=== PATIENT | female | born 1955 | race Caucasian/White ===

== ENCOUNTER 2019-11-26 21:26 | Emergency (ER) | payer MEDICARE, SELFPAY ==
[2019-11-26 21:32] VITALS: BP 143/68; PULSE 86; RESP 18; TEMP 37; O2SAT 100; BMI 32.4
--- NOTE | 2019-11-26 21:33 | CTR_ITS ---
PROCEDURE INFORMATION: Exam: CT Head Without Contrast Exam date and time: 11/26/2019 9:55 PM Age: 64 years old Clinical indication: Injury or trauma; Fall; Initial encounter; Blunt trauma (contusions or hematomas); Consciousness not specified; Patient HX: Lac above RT eye; Additional info: Head injury TECHNIQUE: Imaging protocol: Computed tomography of the head without contrast. Radiation optimization: All CT scans at this facility use at least one of these dose optimization techniques: automated exposure control; mA and/or kV adjustment per patient size (includes targeted exams where dose is matched to clinical indication); or iterative reconstruction. COMPARISON: No relevant prior studies available. RADIATION DOSE METRICS: Total DLP: 805.05 mGy-cm FINDINGS: Brain: No acute intracranial hemorrhage or mass effect. There is decreased attenuation in the periventricular white matter, likely from microvascular disease. Old infarcts in the left frontal and parietal regions. No definite acute infarct by CT. Ventricles: Ex-vacuo enlargement of the left lateral ventricle. Ventricle size is otherwise unremarkable for age. Bones/joints: No definite acute skull fracture. Sinuses: Mild mucosal thickening/fluid in the sphenoid sinus. Mastoid air cells: No significant acute finding. Soft tissues: Evidence for soft tissue injury/scalp hematoma in the right supraorbital region. CT/CT head wo con* [id number] IMPRESSION: 1. No acute intracranial hemorrhage or mass effect. 2. Other findings discussed above. Radiation Dose CTDIVOL = (mGy): DLP = 805.05 (mGy-cm)
--- NOTE | 2019-11-26 22:07 | W.ED.WOUNDLC ---
HPI - Wound/Laceration General: Chief Complaint: Wound/Laceration Stated Complaint: HEAD LAC POST FALL Time Seen by Provider: 11/26/19 21:31 History of Present Illness: HPI narrative: Patient tripped in bathroom at home and hit the counter with her right eyebrow she come in by ambulance no loss of consciousness no nausea and vomiting history of stroke nonverbal Onset (ago): hour(s) Location: face Place: home Patient tetanus UTD: No Context: accidental Associated symptoms: Reports no associated symptoms; Denies chills, fever(s), nausea or vomiting Review of Systems Const: Denies: fever(s), chills or body aches Eyes: Denies: change in vision or blurry vision ENMT: Denies: throat pain or nasal congestion Card: Denies: chest pain or dyspnea on exertion Resp: Denies: dyspnea, productive cough or non-productive cough GI: Denies: abdominal pain, nausea or vomiting Musc: Denies: extremity pain Skin/Breast: Denies: rash Neuro: Reports: other (History of stroke right side affected); Denies: headache(s) Psych: Denies: anxiety or depression Owen/Lymph: Denies: easy bruising PFSH ED PFSH: Social History Smoking and tobacco status: former smoker Physical Exam Const: COMMON NORMALS: no acute distress, average body habitus and patient oriented x3 (Patient does report respond well to stimuli and questions asked and appears to be appropriate) HENMT: COMMON NORMALS: normocephalic HEAD & SCALP: normal to inspection and normocephalic FACE & SINUS: normal facial exam Eye: COMMON NORMALS: conjunctivae normal GENERAL EYE: appearance normal, both eyes and all related structures CONJUNCTIVA: Yes conjunctivae normal Neck/C-Spine: COMMON NORMALS: no JVD Chest: COMMONS NORMALS: normal inspection of the chest Resp: COMMON NORMALS: normal respiratory effort and clear to auscultation bilaterally AUSCULTATION: clear to auscultation bilaterally Cardio: COMMON NORMALS: no JVD, regular rate and regular rhythm RATE: regular rate RHYTHM: regular rhythm GI: COMMON NORMALS: Normal to inspection, nondistended, normoactive bowel sounds present Extremity: COMMON NORMALS: normal to inspection and full ROM Neuro: COMMON NORMALS: patient oriented x3 (Patient does report respond well to stimuli and questions asked and appears to be appropriate) Skin: OTHER: Large laceration right eyebrow oozing blood Procedures Laceration Laceration 1: Site: face Side (If applicable): right Size (cm): 3 Description: linear Depth: simple, single layer Local Anesthetic: lidocaine 1% Amount of anesthesia used (mL): 2 Pre-repair: wound explored, irrigated extensively and deep structures intact Skin layer closed with: nylon Size (cm): 4-0 Number of sutures: 9 Technique: simple, interrupted Course Vital Signs: Vital signs: Vital Signs Temperature 98.6 F 11/26/19 21:32 Pulse Rate 86 11/26/19 21:32 Respiratory Rate 18 11/26/19 21:32 Blood Pressure 143/68 11/26/19 21:32 Pulse Oximetry 100 11/26/19 21:32 Coding Level of Care Code 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
[2019-11-26 23:00] VITALS: BP 157/71; PULSE 79; RESP 18; O2SAT 97
== END 2019-11-26 23:00 | disposition home or self-care (01) ==
PROVIDERS: Emergency Provider Nurse Practitioner Family
DX: S01.111A Laceration without foreign body of right eyelid and periocular area, initial encounter (principal); W01.198A Fall on same level from slipping, tripping and stumbling with subsequent striking against other object, initial encounter; Z87.891 Personal history of nicotine dependence
CPT/HCPCS: 12013; 12345; 70450; 99281; 99283

== ENCOUNTER 2019-12-02 13:23 | Outpatient (CLI) | payer MEDICARE, SELFPAY ==
--- NOTE | 2019-12-02 13:31 | XR_ITS ---
WS: [id number] RIGHT HAND: 3 VIEW(S) TECHNIQUE: PA, oblique and lateral. HISTORY: FALL, FINGER PAIN COMPARISON: None available. Diffuse osteopenia. Seen only on one view is a lucent line through the proximal phalanx of the fourth finger. Seen on the lateral projection is an interruption of cortex involving the proximal phalanx o f the fifth finger. Mild narrowing of the interphalangeal joints. Radiocarpal joint space narrowing. XR/XR hand RT min 3V* [id number] IMPRESSION: 1. Diffuse osteopenia. 2. Suspicious for nondisplaced fractures involving the proximal phalanges of t he fourth and fifth fingers. Recommend follow-up radiograph in 7 days.
== END 2019-12-02 13:24 | disposition home or self-care (01) ==
LOC: RADWPI 13:28
PROVIDERS: PCP Family Medicine; Visit Provider Family Medicine
DX: M79.644 Pain in right finger(s) (principal); W19.XXXA Unspecified fall, initial encounter; M85.841 Other specified disorders of bone density and structure, right hand
CPT/HCPCS: 73130

== ENCOUNTER 2019-12-11 15:25 | Outpatient (CLI) | payer MEDICARE, SELFPAY ==
--- NOTE | 2019-12-11 15:37 | XR_ITS ---
WS: [id number] HAND RIGHT TECHNIQUE: 3 views of the right hand CLINICAL INFORMATION: FRACTURE OF UNSPECIFIED FINGER COMPARISON: December 02, 2019 FINDINGS: Osteopenia. Previously described lucency involving the fourth and fifth proximal phalanges more promi nent in the fifth unchanged. No evidence of interval healing. XR/XR hand RT min 3V* [id number] IMPRESSION: Suspected nondisplaced fracture fifth proximal phalanx is more convincing today . Unchanged lucency in the fourth proximal phalanx.
== END 2019-12-11 15:26 | disposition home or self-care (01) ==
PROVIDERS: PCP Family Medicine; Visit Provider Family Medicine
DX: S62.646A Nondisplaced fracture of proximal phalanx of right little finger, initial encounter for closed fracture (principal); S62.614A Displaced fracture of proximal phalanx of right ring finger, initial encounter for closed fracture; X58.XXXA Exposure to other specified factors, initial encounter
CPT/HCPCS: 73130

== ENCOUNTER 2020-02-13 10:46 | Outpatient (CLI) | payer MEDICARE, SELFPAY ==
--- NOTE | 2020-02-13 10:52 | MM_ITS ---
WS: [id number] BILATERAL DIGITAL SCREENING MAMMOGRAPHY WITH CAD CLINICAL INFORMATION: SCREENING HISTORY: Screening mammogram. No current complaints. COMPARISON: TECHNIQUE: Bilateral CC and MLO views. FINDINGS: Scattered fibroglandular densities bilaterally. No suspicious focal mass, asymmetry, calcifications, or architectural distortion. No evidence of malignancy. Lucent centered left breast calcifications. D ystrophic calcifications. Vascular calcification. MM/[place] [id number] IMPRESSION: BI-RADS: 2-Benign FOLLOW UP: 1 Year Follow-up Recommend return to annual screening mammography.
== END 2020-02-13 10:47 | disposition home or self-care (01) ==
LOC: RADSHAW 10:50
PROVIDERS: PCP Family Medicine; Visit Provider Family Medicine
DX: Z12.31 Encounter for screening mammogram for malignant neoplasm of breast (principal)
CPT/HCPCS: 77067

== ENCOUNTER 2021-03-22 13:33 | Outpatient (CLI) | payer MEDICARE, SELFPAY ==
--- NOTE | 2021-03-22 13:43 | MM_ITS ---
WS: [id number] BILATERAL DIGITAL SCREENING MAMMOGRAPHY WITH CAD CLINICAL INFORMATION: SCREENING HISTORY: Screening mammogram. No current complaints. COMPARISON: February 13, 2020 TECHNIQUE: Bilateral CC and MLO views. FINDINGS: Scattered fibroglandular densities bilaterally. No suspicious focal mass, asymmetry, calcifications, or architectural distortion. No evidence of malignancy. Punctate calcifications. Dystrophic calcifica tions left breast. Vascular calcification. MM/[place] [id number] IMPRESSION: BI-RADS: 2-Benign FOLLOW UP: 1 Year Follow-up Recommend return to annual screening mammography.
== END 2021-03-22 13:34 | disposition home or self-care (01) ==
LOC: RADSHAW 13:37
PROVIDERS: PCP Family Medicine; Visit Provider Family Medicine
DX: Z12.31 Encounter for screening mammogram for malignant neoplasm of breast (principal)
CPT/HCPCS: 77067

== ENCOUNTER 2021-05-11 14:09 | Outpatient (CLI) | payer MEDICARE, SELFPAY ==
--- NOTE | 2021-05-11 14:15 | XR_ITS ---
WS: [id number] Chest 2 views, 05/11/2021 Clinical Data: R SIDED BASILAR CRACKLES/ABNORMAL LUNG SOUNDS Comparison: PA and lateral chest, 03/06/2012. Findings: No nodules or masses are seen. The heart is normal. The pulmonary vascularity is not increa sed. No pneumothorax is seen. There is a right pleural effusion with a patchy opacity in the posterio r aspect of the right lower lobe which could represent pneumonia and/or atelectasis. The aortic arch and descending aorta are tortuous. XR/XR chest 2V* [id number] Impression: 1. Right pleural effusion with possible right lower lobe pneumonia and/or atele ctasis. 2. Atherosclerosis.
== END 2021-05-11 14:10 | disposition home or self-care (01) ==
PROVIDERS: PCP Family Medicine; Visit Provider Family Medicine
DX: R09.89 Other specified symptoms and signs involving the circulatory and respiratory systems (principal)
CPT/HCPCS: 71046

== ENCOUNTER 2021-06-03 09:42 | Outpatient (CLI) | payer MEDICARE, SELFPAY ==
--- NOTE | 2021-06-03 09:46 | CT_ITS ---
WS: [id number] CT CHEST WITH INTRAVENOUS CONTRAST HISTORY: PLEURAL EFFUSION NOT ELSEWHERE CLASSIFIED TECHNIQUE: Contiguous 5 mm axial imaging performed on the thorax. Coronal and sagittal reformats are submitted. All CT scans at [facility] use at least one of these dose optimization techniques: automated exposure control; mA and/or kV adjustment per patient size (includes targeted exams where dose is matched to clinical indication); or iterative reconstruction. CONTRAST: Omnipaque 300; 95 mL IV. DLP: 996.13 mGycm COMPARISON: Chest radiograph 05/11/2021 Quality of this examination is limited by breathing motion artifact. Lungs and central airway: Volume loss in the RIGHT thorax. There is a rounded area of enhancement in the RIGHT lower lobe measuring 4.1 x 3.6 cm. Most consistent with rounded atelectasis. There is an ad jacent small effusion. No additional areas of increased density or opacification. Pleura: Small layering RIGHT pleural effusion Heart and pericardium: Normal size heart with no pericardial effusion. Mediastinum and myrtle: No mediastinum or hilar adenopathy. Vessels: Very mild atherosclerosis aorta. Normal size pulmonary artery. Chest wall and lower neck: No soft tissue masses. Upper abdomen: Prior cholecystectomy. Adrenal glands are normal. Osseous structures: No destructive process. CT/CT chest w con* [id number] IMPRESSION: 1. Mild volume loss in the RIGHT thorax with an area of rounded atelectasis in the RIGHT lower lobe. This area of rounded atelectasis is mass like in appeara nce but I do believe this is atelectasis. To confirm this is atelectasis and no t an underlying mass consider follow-up chest CT in 3 months. 2. Small RIGHT pleural effusion.
[2021-06-03 10:39] LABS: Blood Urea Nitrogen 17 mg/dL (8-23)
[2021-06-03] MEDS: iodixanol 320 mg/mL 100mL Btl IV (12:10)
== END 2021-06-03 09:43 | disposition home or self-care (01) ==
PROVIDERS: PCP Family Medicine; Visit Provider Family Medicine
DX: J90 Pleural effusion, not elsewhere classified (principal); J98.11 Atelectasis
CPT/HCPCS: 71260; 82565; 84520; Q9967

== ENCOUNTER 2021-10-14 11:52 | Outpatient (CLI) | payer MEDICARE, SELFPAY ==
--- NOTE | 2021-10-14 12:03 | CT_ITS ---
WS: [id number] CT CHEST TECHNIQUE: Noncontrast CT of the chest with coronal and sagittal reformatted images. CLINICAL INFORMATION: ABNORMAL CT CHEST SCAN COMPARISON: CT June 03, 2021 DLP: 621.[address] scans at [facility] use at least one of these dose optimization techniques: automated e xposure control; mA and/or kV adjustment per patient size (includes targeted exams where dose is matc hed to clinical indication); or iterative reconstruction. FINDINGS: Normal caliber thoracic aorta. Aortic calcification. Coronary calcification. No axillary lymphadenopa thy. No mediastinal or hilar lymphadenopathy. RIGHT lower lobe opacity suspicious for round atelectasis is decreased in size slightly compared to p revious. This measures approximately 3.4 x 2.9 CM. Small RIGHT pleural effusion. Moderate chronic emp hysematous changes. LEFT lung is well aerated. Mild thoracic kyphosis with hypertrophic changes thora cic spine. CT/CT chest wo con [id number] IMPRESSION: 1. Volume loss RIGHT lower lobe. Small RIGHT pleural effusion. 2. Opacity RIGHT lower lobe is decreased in size slightly today measuring 3.4 x 2.9 cm compared to 3.5 x 4.1 cm previous. This most likely represents round a telectasis. Recommend [address] follow-up. 3. Prior cholecystectomy. 4. No mediastinal or hilar lymphadenopathy. 5. Aortic calcification. Coronary calcification.
== END 2021-10-14 11:53 | disposition home or self-care (01) ==
LOC: RAD 11:56
PROVIDERS: PCP Family Medicine; Visit Provider Family Medicine
DX: R93.89 Abnormal findings on diagnostic imaging of other specified body structures (principal); J90 Pleural effusion, not elsewhere classified; Z90.49 Acquired absence of other specified parts of digestive tract; I70.0 Atherosclerosis of aorta; I25.10 Atherosclerotic heart disease of native coronary artery without angina pectoris
CPT/HCPCS: 71250

== ENCOUNTER 2022-03-25 14:16 | Outpatient (CLI) | payer MEDICARE, SELFPAY ==
--- NOTE | 2022-03-25 14:25 | MM_ITS ---
WS: [id number] BILATERAL 2D CAD DIGITAL SCREENING MAMMOGRAPHY WITH CAD CLINICAL INFORMATION: SCREENING HISTORY: Screening mammogram. No current complaints. COMPARISON: March 22, 2021 TECHNIQUE: Bilateral CC and MLO views. FINDINGS: Scattered fibroglandular densities bilaterally. No suspicious focal mass, asymmetry, calcifications, or architectural distortion. No evidence of malignancy. Punctate and lucent centered calcifications. Dystrophic calcifications. Vascular calcifications. MM/[place] [id number] IMPRESSION: BI-RADS: 2-Benign FOLLOW UP: 1 Year Follow-up Recommend return to annual screening mammography.
== END 2022-03-25 14:17 | disposition home or self-care (01) ==
LOC: RAD 14:18
PROVIDERS: PCP Family Medicine; Visit Provider Family Medicine
DX: Z12.31 Encounter for screening mammogram for malignant neoplasm of breast (principal)
CPT/HCPCS: 77067

== ENCOUNTER 2022-05-24 07:14 | Outpatient (CLI) | payer MEDICARE, SELFPAY ==
--- NOTE | 2022-05-24 07:28 | CT_ITS ---
WS: [id number] CT CHEST WITHOUT INTRAVENOUS CONTRAST HISTORY: Follow-up chest CT RIGHT lower lobe mass. TECHNIQUE: Contiguous 5 mm axial imaging performed on the thorax. Coronal and sagittal reformats are submitted. All CT scans at [facility] use at least one of these dose optimization techniques: automated exposure control; mA and/or kV adjustment per patient size (includes targeted exams where dose is matched to clinical indication); or iterative reconstruction. CONTRAST: None DLP: 674.04 mGy.cm COMPARISON: 06/03/2021, 10/14/2021 Lungs and central airway: Quality is limited by breathing motion artifact. There is volume loss in th e RIGHT thorax. Pleural-based mass in the posterior medial RIGHT lower lobe is reidentified. Mass abu ts the pleura and this is thought related to rounded atelectasis. Mass has not increased in size sinc e 06/03/2021 and actually has decreased. On 06/03/2021 mass measured 3.2 x 3.8 cm. On 10/14/2021 mass me asured 3.0 x 3.1 cm. Today this solid mass measures 2.5 x 2.9 cm. There is adjacent pleural thickenin g but the previously described effusion has resolved. No edema additional masses or pneumonia. Pleura: No pleural effusion. Heart and pericardium: Heart is very slightly enlarged. No pericardial effusion. Mediastinum and myrtle: No mediastinum or hilar adenopathy. Vessels: Mild atherosclerosis aorta. Normal size pulmonary artery. Chest wall and lower neck: No soft tissue masses. Upper abdomen: Prior cholecystectomy. No abnormality identified. Osseous structures: Very mild increase in thoracic kyphosis. No osteoblastic or osteolytic bone disea se. CT/CT chest wo con [id number] IMPRESSION: 1. Persistent posterior medial RIGHT lower lobe pleural-based solid mass now m easures 2.5 x 2.9 cm. This mass continues to very slightly decrease in size sin ce 06/03/2021. Favor this is probably rounded atelectasis. For long-term stabili ty recommend serial 6 month follow-up CT evaluations for a total of 2 years. 2 additional 6 month follow-ups would fill that criteria. 2. Resolved RIGHT pleural effusion that was described on 06/03/2021. 3. Mild cardiomegaly. 4. Mild atherosclerosis aorta. 5. Mild volume loss RIGHT thorax.
== END 2022-05-24 07:15 | disposition home or self-care (01) ==
LOC: RAD 07:18
PROVIDERS: PCP Family Medicine; Visit Provider Family Medicine
DX: R93.89 Abnormal findings on diagnostic imaging of other specified body structures (principal); I70.0 Atherosclerosis of aorta; I51.7 Cardiomegaly
CPT/HCPCS: 71250

== ENCOUNTER 2022-07-17 17:03 | Emergency (ER) | payer MEDICARE, SELFPAY ==
[2022-07-17 17:17] VITALS: BP 124/79; PULSE 113; RESP 20; TEMP 36.8; O2SAT 97
--- NOTE | 2022-07-17 18:03 | ED_ITS ---
HPI - Fall General: Chief Complaint: Fall Stated Complaint: Right leg injury, No strength in right side Time Seen by Provider: 07/17/22 18:03 History of Present Illness: 66-year-old female comes in today for complaints of injury to the right foot and ankle. Patient 3 days prior to coming to the ER had took a ground-level fall when she was transferring. Patient has reduced mobility in her right side due to a prior stroke event. Family monitor the site but after 3 days it looks more bruised and swollen which concerned them and they brought her in for further evaluation. Patient reports pain in the ankle. No obvious deformity is noted. Swelling and bruising is noted. Review of Systems Musc: Reports: extremity pain and extremity swelling PFSH ED 2 PFSH: Social History Smoking and tobacco status: former smoker Physical Exam Const: COMMON NORMALS: alert HENMT: COMMON NORMALS: normocephalic HEAD & SCALP: normocephalic Neck/C-Spine: COMMON NORMALS: full ROM CERVICAL SPINE: No Cervical spine tenderness Resp: COMMON NORMALS: normal respiratory effort Cardio: COMMON NORMALS: regular rate RATE: regular rate Extremity: RIGHT LOWER EXTREMITY: Yes hip joint (Normal range of motion of the hip without pain), Yes knee joint (Normal range of motion of the knee without pain), Yes foot & digits (Bilateral swelling with bruising, decreased range of motion due to swelling) and Yes foot & digits (Swelling and bruising) Neuro: SENSORIUM/ORIENTATION: Yes alert Course Vital Signs: Vital signs: Vital Signs Temperature 98.2 F 07/17/22 17:17 Pulse Rate 94 07/17/22 18:07 Respiratory Rate 18 07/17/22 18:07 Blood Pressure 124/79 07/17/22 17:17 Pulse Oximetry 97 07/17/22 18:07 Oxygen Delivery Me thod 07/17/22 18:07 MDM - Fall Medical Decision Making 66-year-old female comes in today with complaints of injury to the right foot and ankle that occurred 3 days ago. On exam there is noticeable swelling and bruising. Pulses and cap refill is intact. Differential diagnosis includes fracture, sprain, dislocation. X-ray of the ankle noted distal fibular avulsion fracture. X-ray of the foot was unremarkable. Reviewed exam with patient and family with recommendations for orthopedic boot and follow-up with podiatry for further treatment. Family reported understanding agreed to plan. Lab Data Radiology Impressions Foot X-Ray 07/17/22 18:08 IMPRESSION: No acute findings. Discharge Plan Discharge Patient Disposition: Home Clinical Impression: Avulsion fracture of distal fibula Condition: Stable Discharge Orders: Discharge ED (Routine); Ordered 07/17/22 Ordered By: Vikas Cannon Other Ambulatory Orders: DME: Miscellaneous (Order) Location: None Selected Ordered By: Vikas Cannon Referrals: Nicole Ray MD [Primary Care Provider] - Discharge Diet: Usual diet Discharge Activity: Increase activity as tolerated Patient Instructions: Ankle Fracture (ED) Activity Restrictions/Additional Instructions: Wear walking boot or stirrup splint to protect ankle joint. Use acetaminophen or ibuprofen for pain. Drink plenty of water with medications. Elevate ankle as much as possible for reduction of swelling. Follow-up with orthopedist/production posting clerk for further treatment and evaluation. Return to ED for new concerns. Coding Level of Care Code ED Coordinate Measuring Equipment Operator for [place] Fwd Exam Detailed
[2022-07-17 18:07] VITALS: PULSE 94; RESP 18; O2SAT 97
--- NOTE | 2022-07-17 18:08 | XRR_ITS ---
PROCEDURE INFORMATION: Exam: XR Right Ankle Exam date and time: 07/17/2022 6:21 PM Age: 66 years old Clinical indication: Injury or trauma; Fall; Blunt trauma; Ankle; Right TECHNIQUE: Imaging protocol: Radiologic exam of the Right ankle. Views: 3 or more views. COMPARISON: No relevant prior studies available. FINDINGS: Bones/joints: Small ossified densities along the tip of the fibula are age indeterminate. The other bones are intact. Soft tissues: Circumferential soft tissue swelling. Vasculature: Vascular calcifications. XR/XR ankle RT min 3V* [id number] IMPRESSION: 1. Bone fragments along the distal fibula could be chronic and degenerative. Small avulsion fractures are not excluded.
--- NOTE | 2022-07-17 18:08 | XRR_ITS ---
PROCEDURE INFORMATION: Exam: XR Right Foot Exam date and time: 07/17/2022 6:21 PM Age: 66 years old Clinical indication: Injury or trauma; Fall; Blunt trauma; Right; Patient HX: Patient unable to move foot for positioning. Held by 2 techs TECHNIQUE: Imaging protocol: Radiologic exam of the Right foot. Views: 3 or more views. COMPARISON: No relevant prior studies available. FINDINGS: Bones/joints: Diffuse demineralization of the bones. Mild degenerative changes of the 1st MTP joint. Moderate degenerative changes of the 1st IP joint. No fracture visualized. Soft tissues: Soft tissue swelling of the dorsal foot. Vascular calcifications. XR/XR foot RT min 3V* [id number] IMPRESSION: No acute findings.
[2022-07-17 20:31] VITALS: BP 134/82; PULSE 81; RESP 15; TEMP 36.8; O2SAT 98
--- NOTE | 2022-07-17 20:32 | PC.NURSE ---
post op boot does not fit pt and there is no size that will. pt has brace at home that she states she will use.
--- NOTE | 2022-07-18 10:12 | DCPLANNER ---
Addendum entered by Aleida Singh 08/25/22 13:33: Patient had a follow up appointment scheduled with ortho - patient did attend appointment. Addendum entered by Aleida Singh 07/19/22 15:20: Patient has a follow up appointment scheduled for Friday, July 22, 2022 at 10:[address] Sandoval at ortho. Clinic will call patient with appointment information. Original Note: education program manager had message to schedule a follow up appointment for patient with ortho. education program manager sent patients information to the front office staff at ortho. Patients information will be printed and reviewed. Clinic will call patient with appointment information.
== END 2022-07-17 20:15 | disposition home or self-care (01) ==
PROVIDERS: Emergency Provider Nurse Practitioner Family; PCP Family Medicine
DX: S82.831A Other fracture of upper and lower end of right fibula, initial encounter for closed fracture (principal); W18.30XA Fall on same level, unspecified, initial encounter; Z87.891 Personal history of nicotine dependence
CPT/HCPCS: 73610; 73630; 99283

== ENCOUNTER 2022-07-22 06:00 | Outpatient (CLI) | payer MEDICARE, SELFPAY | END 2022-07-22 06:01 | LOC: SPT 08-03 13:33 | PROVIDERS: PCP Family Medicine; Visit Provider Podiatrist Foot & Ankle Surgery | DX: S82.831A Other fracture of upper and lower end of right fibula, initial encounter for closed fracture (principal); X58.XXXA Exposure to other specified factors, initial encounter; M21.541 Acquired clubfoot, right foot; M21.371 Foot drop, right foot; M25.471 Effusion, right ankle; I63.9 Cerebral infarction, unspecified | CPT/HCPCS: 29580; 99204; L4397 ==

== ENCOUNTER → 2022-07-29 10:40 | Outpatient (BNVA) | payer MEDICARE, SELFPAY | PROVIDERS: PCP Family Medicine; Visit Provider Podiatrist Foot & Ankle Surgery | DX: S82.831A Other fracture of upper and lower end of right fibula, initial encounter for closed fracture (principal); X58.XXXA Exposure to other specified factors, initial encounter; M21.541 Acquired clubfoot, right foot; M21.371 Foot drop, right foot; I63.9 Cerebral infarction, unspecified; M25.471 Effusion, right ankle | CPT/HCPCS: 99213 ==

== ENCOUNTER 2022-08-17 18:23 | Emergency (ER) | payer MEDICARE, SELFPAY ==
[2022-08-17 18:33] VITALS: BP 131/82; PULSE 105; TEMP 36.4; O2SAT 98; BMI 34.4
--- NOTE | 2022-08-17 19:16 | ED_ITS ---
HPI - Extremity Problem General: Chief complaint: Extremity Problem,Nontraumatic Stated complaint: Rt Ankle Infected From Brace Time Seen by Provider: 08/17/22 18:48 Source: patient and family Mode of arrival: wheelchair History of Present Illness: Patient presents to the emergency department today accompanied by and daughter for evaluation treatment of right lower extremity wound. Patient has acquired right foot drop and is followed by podiatry. Patient was seen and evaluated approximately 1 month ago for significant swelling to the right ankle. Patient's records management technician diagnosed with distal right fibular avulsion fracture and, due to the swelling, was unable to wear her typical brace. They attempted to put her in an Unna boot but, admits that it was very difficult to place on her but, swelling improved on its own. Patient is back to wearing her brace but, today he noticed the patient has what appears to be a wound/ulcer that has developed which he suspects secondary to her normal foot brace. Patient is a diabetic. Upcoming appointment with podiatry on the of this month. Review of Systems General: Reports: 10 or more systems reviewed and unremarkable except in HPI and below Skin/Breast: Reports: sores (wound) PFSH ED PFSH: Social History Smoking and tobacco status: former smoker Physical Exam Const: COMMON NORMALS: no acute distress, average body habitus and patient oriented x3 HENMT: COMMON NORMALS: normocephalic, atraumatic, hearing grossly normal bilaterally, Normal external nose present and moist oral mucous membranes HEAD & SCALP: normocephalic and atraumatic NOSE: Normal external nose present Eye: COMMON NORMALS: Equal, round and reactive pupils present, EOMs intact bilaterally and conjunctivae normal CONJUNCTIVA: Yes conjunctivae normal PUPIL: Yes Equal, round and reactive pupils present Neck/C-Spine: COMMON NORMALS: no JVD Lymph: LYMPHATIC: no lymphadenopathy noted Resp: COMMON NORMALS: normal respiratory effort, No retractions and No use of accessory muscles Cardio: COMMON NORMALS: no JVD, regular rate and regular rhythm RATE: regular rate RHYTHM: regular rhythm GI: COMMON NORMALS: Normal to inspection, nondistended, normoactive bowel sounds present : COMMON NORMALS: Yes no CVA tenderness BLADDER/KIDNEY EXAM: Yes no CVA tenderness Back/Pelvis: COMMON NORMALS: no CVA tenderness and thoraco-lumbar ROM normal Extremity: COMMON NORMALS: normal to inspection, full ROM and capillary refill normal Neuro: COMMON NORMALS: patient oriented x3 Psych: COMMON NORMALS: mental status grossly normal, Normal thought process present, cooperative, normal affect and activity/motor behavior normal THOUGHT PROCESS: Normal thought process present Skin: NARRATIVE SKIN EXAM: Patient has a circular, ulcerated wound to the right lateral malleolus. It is approximately 1-1/2 cm x 1 and half centimeters. There is a central purulent accumulation and a faint ring of erythema surrounding the wound. Best guess would be a stage II ulcer. Course Vital Signs: Vital signs: Vital Signs Temperature 97.6 F 08/17/22 18:33 Pulse Rate 105 H 08/17/22 18:33 Respiratory Rate 18 08/17/22 20:14 Blood Pressure 131/82 08/17/22 18:33 Pulse Oximetry 98 08/17/22 18:33 Oxygen Delivery Me thod 08/17/22 18:33 MDM - Extremity (Nontraumatic) Medical Decision Making Patient's wound was cleaned here in the emergency department and rebandaged. Mupirocin cream applied. First dose of doxycycline provided. Continue treatment with antibiotics sent to the pharmacy to be picked up and continued in the morning. A referral to wound care was requested by case management and they are to keep the upcoming appointment with podiatry. Unfortunately, I do think patient would benefit from some time out of her brace but, do understand that she often begins to get contractures if not wearing the brace. Patient may attempt wearing brace at night as hopefully there is not as much mobility and rubbing in the brace and can spend more time out of it during the day. While wearing it, wound should be well padded to avoid any direct pressure. Strict return precautions discussed. Differential Diagnosis Likely cellulitis (Pressure ulcer, diabetic ulcer) and lower extremity edema Discharge Plan Discharge Patient Disposition: Home Clinical Impression: Pressure ulcer, ankle, right, unstageable, Diabetes, Acquired right foot drop Condition: Stable Prescriptions: New doxycycline hyclate 100 mg tablet 100 mg PO BID 10 Days Qty: 20 0RF mupirocin 2 % ointment 1 applic topical BID Qty: 22 0RF No Action (DME) night splint See Rx Instructions .Route .MEDSUPPLY Qty: 1 0RF Rx Instructions: As directed Discharge Orders: Discharge ED (Routine); Ordered 08/17/22 Ordered By: Nataly Calix Referrals: Nicole Ray MD [Primary Care Provider] - Discharge Diet: Usual diet Discharge Activity: Resume usual activity Patient Instructions: Acute Wound Care (ED), Diabetic Foot Ulcers (ED) Activity Restrictions/Additional Instructions: Examination of the patient's wound is concerning for early stage ulceration wound of the skin. Patient's healing is complicated by her diabetes and, can be more difficult for her to heal. We are going to treat for infection using a topical antibiotic medication as well as an oral antibiotic. First round of these medications were provided tonight through the emergency department should your pharmacy not be open for prescription pickup until tomorrow. I have also requested a follow-up appointment by wound management for further monitoring and treatment. Keep your upcoming appointment with podiatry. Unfortunately, continuing to wear the brace may continue to cause rubbing and pressure on the wound. For now, I recommend wearing the brace at night to help prevent contractures and as there is less movement and potential for rubbing while you sleep. Patient should remove the brace during the day as much as possible. When wearing the brace, be sure there is always a wrapping and cover-with plenty of padding over the wound. Wash the wound twice a day with warm water and mild soap. Apply mupirocin cream topically after each cleaning and cover with new bandaging. Coding Level of Care Code ED Home Appliance Technician for Ankit Slaughter
[2022-08-17] MEDS: doxycycline 100 mg Tablet PO (19:45)
[2022-08-17] MEDS: mupirocin oint 22 gm 1 APPLIC TOPICAL (19:46)
[2022-08-17 20:14] VITALS: RESP 18
--- NOTE | 2022-08-18 10:39 | DCPLANNER ---
Addendum entered by Aleida Singh 09/14/22 07:39: Patient had a follow up appointment scheduled with Wound Care - patient did attend appointment Addendum entered by Aleida Singh 08/18/22 14:50: Patient has a follow up appointment scheduled for Monday, August 22, 2022 at 8:[address] Mckeon at [facility]. Clinic will call patient with appointment information. Original Note: r d manager had message to schedule a follow up appointment for patient with Wound Care. r d manager sent patients information to the front office staff at wound care. Patients information will be printed and reviewed. Clinic will call patient with appointment information.
== END 2022-08-17 20:15 | disposition home or self-care (01) ==
PROVIDERS: Emergency Provider Physician Assistant; PCP Family Medicine
DX: L89.510 Pressure ulcer of right ankle, unstageable (principal); E11.9 Type 2 diabetes mellitus without complications; M21.371 Foot drop, right foot
CPT/HCPCS: 99283

== ENCOUNTER → 2022-08-26 11:32 | Outpatient (BNVA) | payer MEDICARE, SELFPAY | PROVIDERS: PCP Family Medicine; Visit Provider Podiatrist Foot & Ankle Surgery | DX: S82.831A Other fracture of upper and lower end of right fibula, initial encounter for closed fracture (principal); X58.XXXA Exposure to other specified factors, initial encounter; I63.9 Cerebral infarction, unspecified; M25.471 Effusion, right ankle; M21.371 Foot drop, right foot; M21.541 Acquired clubfoot, right foot | CPT/HCPCS: 73610 ==

== ENCOUNTER → 2022-08-26 13:24 | Outpatient (BNVA) | payer MEDICARE, SELFPAY | PROVIDERS: PCP Family Medicine; Visit Provider Thoracic Surgery (Cardiothoracic Vascular Surgery) | DX: I96 Gangrene, not elsewhere classified (principal); L89.892 Pressure ulcer of other site, stage 2 | CPT/HCPCS: 97597; 99213; L4361 ==

== ENCOUNTER 2022-08-28 22:04 | Inpatient (IN) | payer MEDICARE, SELFPAY ==
[2022-08-28 22:13] VITALS: BP 173/89; PULSE 115; RESP 20; TEMP 36.9; O2SAT 97; BMI 32.8
--- NOTE | 2022-08-28 22:24 | XRR_ITS ---
PROCEDURE INFORMATION: Exam: XR Chest Exam date and time: 08/28/2022 10:30 PM Age: 66 years old Clinical indication: Other: AMS, vomiting; Additional info: Vomiting, AMS TECHNIQUE: Imaging protocol: Radiologic exam of the chest. Views: 1 view. COMPARISON: CT chest con [id number] 05/24/2022 7:34 AM FINDINGS: Lungs: The lungs are clear. Pleural spaces: Unremarkable. No pleural effusion. No pneumothorax. Heart/Mediastinum: Unremarkable. No cardiomegaly. Bones/joints: Unremarkable. XR/XR chest 1V portable [id number] IMPRESSION: No acute cardiopulmonary abnormality.
--- NOTE | 2022-08-28 22:24 | CTR_ITS ---
PROCEDURE INFORMATION: Exam: CT Head Without Contrast Exam date and time: 08/28/2022 10:34 PM Age: 66 years old Clinical indication: Stroke-like symptoms; Altered mental status/memory loss; RT upper extremity and RT lower extremity and other: RT facial droop weakness; Additional info: AMS, weakness. Previous stroke TECHNIQUE: Imaging protocol: Computed tomography of the head without contrast. Radiation optimization: All CT scans at this facility use at least one of these dose optimization techniques: automated exposure control; mA and/or kV adjustment per patient size (includes targeted exams where dose is matched to clinical indication); or iterative reconstruction. Other technique: STROKE PROTOCOL was implemented. REPORTING DATA: Count of CT and Cardiac NM exams in prior 12 months: This patient has received 2 known CTs and 0 known cardiac nuclear medicine studies in the 12 months prior to the current study. COMPARISON: CT head wo con* [id number] 11/26/2019 9:52 PM RADIATION DOSE METRICS: Total DLP (mGy-cm): 1048.68 FINDINGS: Brain: Large area of chronic infarction is again seen in the left cerebral hemisphere. Mild atrophy and mild white matter chronic microvascular changes are noted. No hemorrhage or evidence of acute infarction. Cerebral ventricles: No ventriculomegaly. Paranasal sinuses: Mild right posterior ethmoid and left sphenoid sinusitis is appreciated. Mastoid air cells: Visualized mastoid air cells are well aerated. Bones/joints: No acute fracture Soft tissues: Unremarkable. CT/CT head thrombolytic [id number] IMPRESSION: No acute intracranial abnormality. Mild sinusitis. ASSESSMENT: ASPECTS ([place] Stroke Program Early CT Score) is 10.
[2022-08-28 22:30] LABS: Basophils # 0.1 10^3/uL (0.0-0.1); Basophils % 0.9 %; Eosinophils # 0.1 10^3/uL (0.0-0.8); Eosinophils % 0.8 %; Hematocrit 41.8 % (37.0-47.0); Hemoglobin 13.5 g/dL (11.5-15.3); Lymphocytes # 1.7 10^3/uL (0.8-4.8); Lymphocytes % 10.5 %; Mean Corpuscular HGB Conc 32.3 g/dL (30.0-36.0); Mean Corpuscular Hemoglobin 29.5 pg (28.0-34.0); Mean Corpuscular Volume 91.5 fl (81-99); Mean Platelet Volume 10.1 fL (7.4-10.4); Monocytes % 11.9 %; Neutrophils # 12.35 10^3/uL (1.8-7.7); Neutrophils % 75.2 %; Nucleated Red Blood Cells % 0 %; Platelet Count 433 10^3/cmm (130-400); Red Blood Count 4.57 10^6/uL (4.1-5.3); Red Cell Distribution Width 12.2 % (12.1-15.1); White Blood Count 16.4 10^3/uL (4.0-10.0)
[2022-08-28 22:31] VITALS: BP 173/82; PULSE 112; RESP 18; O2SAT 98
[2022-08-28 22:38] LABS: INR 1.03 (0.8-1.2)
[2022-08-28 22:39] LABS: Partial Thromboplastin Time 57.1 SECONDS (23.9-36.7)
[2022-08-28 22:43] LABS: Lactate (Lactic Acid level) 2.1 mmol/L (0.5-2.2)
[2022-08-28 22:44] LABS: Albumin Level 3.1 g/dL (3.5-5.2); Alkaline Phosphatase 102 U/L (35-105); Chloride 96 mmol/L (98-107); Potassium 5.9 mmol/L (3.5-5.1); Sodium 131 mmol/L (136-145)
[2022-08-28 22:46] VITALS: BP 166/80; PULSE 114; RESP 22; O2SAT 99
[2022-08-28] MEDS: sodium chloride 0.9% 1,000 ML 999 ML IV (22:46)
--- NOTE | 2022-08-28 22:53 | ECG_ITS ---
[facility] Test Date: 2022-08-28 Pat Name: Renetta Casey Department: Room: Gender: Female Security Field Supervisor: : 1955 Requested By: Curt Lance Order Number: [id number] Harini MD: Bernard Ingram M.D. Measurements Intervals [place] Rate: 105 P: 45 MO: 138 QRS: -15 QRSD: 86 T: 30 QT: 316 QTc: 419 Interpretive Statements SINUS TACHYCARDIA POSSIBLE RIGHT ATRIAL ENLARGEMENT [0.25mV P-WAVE] LOW QRS VOLTAGE IN PRECORDIAL LEADS [QRS DEFLECTION < 1.0 mV IN CHEST LEADS] PATTERN CONSISTENT WITH PULMONARY DISEASE No previous ECG available for comparison Electronically Signed On 08-29-2022 17:30:53 SUPERVISOR FRAME ASSEMBLY by Bernard Ingram M.D. [id number]
[2022-08-28 23:01] VITALS: BP 159/68; PULSE 101; RESP 19; O2SAT 19
[2022-08-28 23:01] LABS: Alanine Aminotransferase 6 U/L (0-33); Anion Gap 19.9 (5-19); Aspartate Amino Transferase 16 U/L (0-32); Blood Urea Nitrogen 30 mg/dL (8-23); Calcium 9.7 mg/dL (8.5-10.5); Carbon Dioxide 21 mmol/L (22-29); Globulin 4.6 g/dL (1.3-4.6); Glomerular Filtration Rate 37.9 mL/min (90-130); Glucose 202 mg/dL (65-115); Magnesium 1.8 mg/dL (1.7-2.3); Osmolality Calculated 284 mOsm/kg (285-295); Total Bilirubin 0.7 mg/dL (0.15-1.2); Total Protein 7.7 g/dL (6.6-8.7)
--- NOTE | 2022-08-28 23:15 | PC.NURSE ---
Addendum entered by Mushtaq Jean-Baptiste RN 08/28/22 23:42: Pt noted to have rhythm change on monitor. RN and MD to bedside. EKG performed. Pt in AFIB with RVR. Pt denies any c/o at this time. No CP. No SOB. Skin w/p/d. Cardizem ordered to be given, but prior to Cardizem push, pt rhythm converted to sinus tach. aware. Cardizem held. Original Note: [id number]
[2022-08-28 23:16] VITALS: BP 168/102; PULSE 158; RESP 20; O2SAT 20
[2022-08-29] VITALS (92 sets, daily range): BP systolic 67–168; BP diastolic 43–110; PULSE 65–152; RESP 12–30; TEMP 36.5–36.8; O2SAT 83–100; BMI 33.7
--- NOTE | 2022-08-29 00:43 | CTR_ITS ---
PROCEDURE INFORMATION: Exam: CT Abdomen And Pelvis With Contrast Exam date and time: 08/29/2022 2:09 AM Age: 66 years old Clinical indication: Vomiting; Abdominal pain; Generalized; Prior surgery; Surgery date: 6+ months; Surgery type: Cholecystectomy; Additional info: Abd pain, vomiting, leukocytosis TECHNIQUE: Imaging protocol: Computed tomography of the abdomen and pelvis with contrast. Radiation optimization: All CT scans at this facility use at least one of these dose optimization techniques: automated exposure control; mA and/or kV adjustment per patient size (includes targeted exams where dose is matched to clinical indication); or iterative reconstruction. Contrast material: OMNI 350; Contrast volume: 75 ml; Contrast route: INTRAVENOUS (IV); REPORTING DATA: Count of CT and Cardiac NM exams in prior 12 months: This patient has received 3 known CTs and 0 known cardiac nuclear medicine studies in the 12 months prior to the current study. COMPARISON: CT chest wo con [id number] 05/24/2022 7:34 AM RADIATION DOSE METRICS: Total DLP (mGy-cm): 948.78 FINDINGS: Lungs: The right lower lobe round atelectasis is again noted. Heart: The heart is normal in size. A small pericardial effusion is present. Liver: Normal. No mass. Gallbladder and bile ducts: The gallbladder has been removed. No biliary ductal dilatation. Pancreas: Normal. No ductal dilation. Spleen: Normal. No splenomegaly. Adrenal glands: Normal. No mass. Kidneys and ureters: A small 11 mm simple appearing left renal cyst is noted. The kidneys appear normal. No hydronephrosis. Stomach and bowel: No intestinal obstruction. Diverticulosis coli is seen, without evidence of diverticulitis. Appendix: The appendix is normal. Intraperitoneal space: Unremarkable. No free air. No significant fluid collection. Vasculature: Atherosclerotic changes are observed in the abdominal aorta and iliac arteries. No aneurysm. Lymph nodes: Unremarkable. No enlarged lymph nodes. Urinary bladder: Unremarkable as visualized. Reproductive: The uterus is absent. Bones/joints: Unremarkable. No acute fracture. Soft tissues: Unremarkable. CT/CT abdomen pelvis w con* [id number] IMPRESSION: 1. No acute abnormality is seen in the abdomen or pelvis. 2. Diverticulosis coli. 3. Atherosclerosis. 4. Small pericardial effusion. COMMENTS: Consistent with the [place] [employer]'s Incidental Findings Committee white paper (J Am Jone Radiol 2018): Any incidental renal lesion less than 1 cm or classified as too small to characterize, or any incidental cystic renal lesion characterized as simple-appearing, is likely benign. No follow-up imaging is recommended for these lesions per consensus recommendations based on imaging criteria.
[2022-08-29] MEDS: iohexol 350 mg/mL 500 mL Btl (per mL) IV (00:53)
[2022-08-29] MEDS: calcium gluconate 0.9% NaCL 1 GM/50 ML PREMIX IV (00:55)
[2022-08-29] MEDS: metoprolol tartrate 1 mg/1 mL SDV 5 mL 5 MG IVP (00:55)
[2022-08-29] MEDS: sodium bicarbonate 8.4% 1 mEq/mL 50mL Syr 50 MEQ IVP (00:55)
--- NOTE | 2022-08-29 01:09 | W.ED.AMS ---
HPI - Altered Mental Status General: Chief Complaint: Altered Mental Status Stated Complaint: Possible Stroke Time Seen by Provider: 08/28/22 22:09 Source: patient and family History of Present Illness: 66-year-old female with a history of a large left-sided stroke, with right-sided deficits that are significant. She presents with several episodes of vomiting today, not feeling well. She complained of belly pain intermittently. She seemed to be more generally weak today as well. was concerned about her, that she may be having a stroke again, so he brought her to the emergency room. She has not had a fever. No cough. She has been more lethargic at times MD complaint: altered mental status and decreased responsiveness Onset (ago): day(s) (2-3) Timing confirmed by: spouse Severity: moderate Consistency of symptoms: Waxing and Waning Review of Systems Const: Denies: fever(s) Eyes: Denies: change in vision Card: Denies: chest pain Resp: Denies: dyspnea, productive cough or non-productive cough GI: Reports: abdominal pain, nausea and vomiting; Denies: diarrhea Neuro: Denies: headache(s) PFSH ED PFSH: Social History Smoking and tobacco status: former smoker Physical Exam Const: COMMON NORMALS: alert GENERAL APPEARANCE: cooperative HENMT: COMMON NORMALS: normocephalic, atraumatic and Normal external nose present HEAD & SCALP: normocephalic and atraumatic NOSE: Normal external nose present Eye: COMMON NORMALS: Equal, round and reactive pupils present and EOMs intact bilaterally PUPIL: Yes Equal, round and reactive pupils present Chest: CHEST: Yes Symmetrical chest wall rise Resp: COMMON NORMALS: normal respiratory effort, No use of accessory muscles and clear to auscultation bilaterally AUSCULTATION: clear to auscultation bilaterally Cardio: COMMON NORMALS: regular rhythm RATE: tachycardic RHYTHM: regular rhythm GI: COMMON NORMALS: Normal to inspection, nondistended, normoactive bowel sounds present PALPATION: Yes Tenderness to palpation present (GI) (Diffuse) Neuro: JOHN COMA SCALE: document GCS findings John coma scale eye opening: Spontaneous John coma scale verbal response: Confused John coma scale motor response: Obey commands [place] coma scale total score: 14 SENSORIUM/ORIENTATION: Yes alert CRANIAL NERVES: Yes CN VII (facial) (Right great) SPEECH: Other neuro speech findings (Reduced speech with some expressive aphasia. 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 Lower extremity is in a boot. She can lift legs bilaterally. [id number] is normal on the left. Psych: ATTITUDE: Yes calm Course Vital Signs: Vital signs: Vital Signs Temperature 98.5 F 08/28/22 22:13 Pulse Rate 93 08/29/22 03:07 Respiratory Rate 20 H 08/29/22 03:07 Blood Pressure 150/74 08/29/22 03:07 Pulse Oximetry 98 08/29/22 01:47 Oxygen Delivery Me thod 08/29/22 01:00 MDM - Altered Mental Status Medical Decision Making Patient is tachycardic in the 110s. I do not see deficits above baseline that are focal. She is afebrile. She is hypertensive. On the monitor, she has had several episodes of heart rates up to 170. 1 of these was caught on twelve-lead EKG and appears to be atrial fibrillation with RVR. Just as we were beginning to give Cardizem for this, she self converted back to a sinus rhythm in the 100s to 110s. She has had 4-5 more episodes of A-fib with RVR here. She is given IV metoprolol 5 mg with improvement of her rate into the 80s. No recurrences since. Her potassium is 5.9. Her creatinine is 1.4 which appears to be near her baseline. She is given calcium gluconate and bicarbonate for the hyperkalemia. Her lactate is 2.1. CT of the abdomen is pending. CT of the head shows no acute abnormality. Chest x-ray is negative. She does not have a history of atrial fibrillation. Because of the recurrent atrial fibrillation with rates in the 170s, she will go to the ICU for close monitoring. Metoprolol seems to have helped to some degree. Also with potassium of 6, she will need close cardiac monitoring for this as well. Recheck BMP later. Hospitalist has seen the patient in the ER. Lab Data 08/28/22 22:20 08/28/22 22:20 Radiology Impressions Chest X-Ray 08/28/22 22:24 IMPRESSION: No acute cardiopulmonary abnormality. Head CT 08/28/22 22:24 IMPRESSION: No acute intracranial abnormality. Mild sinusitis. ASSESSMENT: ASPECTS ([place] Stroke Program Early CT Score) is 10. Abdomen/Pelvis CT 08/29/22 00:43 IMPRESSION: 1. No acute abnormality is seen in the abdomen or pelvis. 2. Diverticulosis coli. 3. Atherosclerosis. 4. Small pericardial effusion. COMMENTS: Consistent with the [place] [employer]'s Incidental Findings Committee white paper (J Am Jone Radiol 2018): Any incidental renal lesion less than 1 cm or classified as too small to characterize, or any incidental cystic renal lesion characterized as simple-appearing, is likely benign. No follow-up imaging is recommended for these lesions per consensus recommendations based on imaging criteria. Laboratory Results WBC 16.4 10^3/uL (4.0-10.0) H 08/28/22 22:20 RBC 4.57 10^6/uL (4.1-5.3) 08/28/22 22:20 Hgb 13.5 g/dL (11.5-15.3) 08/28/22 22:20 Hct 41.8 % (37.0-47.0) 08/28/22 22:20 MCV 91.5 fl (81-99) 08/28/22 22:20 MCH 29.5 pg (28.0-34.0) 08/28/22 22:20 MCHC 32.3 g/dL (30.0-36.0) 08/28/22 22:20 RDW 12.2 % (12.1-15.1) 08/28/22 22:20 Plt Count 433 10^3/cmm (130-400) H 08/28/22 22:20 MPV 10.1 fL (7.4-10.4) 08/28/22 22:20 Neut % (Auto) 75.2 % 08/28/22 22:20 Lymph % (Auto) 10.5 % 08/28/22 22:20 [place] % (Auto) 11.9 % 08/28/22 22:20 Eos % (Auto) 0.8 % 08/28/22 22:20 Baso % (Auto) 0.9 % 08/28/22 22:20 Neut # (Auto) 12.35 10^3/uL (1.8-7.7) H 08/28/22 22:20 Lymph # (Auto) 1.7 10^3/uL (0.8-4.8) 08/28/22 22:20 [place] # (Auto) 2.0 10^3/uL (0.2-0.9) H 08/28/22 22:20 Eos # (Auto) 0.1 10^3/uL (0.0-0.8) 08/28/22 22:20 Baso # (Auto) 0.1 10^3/uL (0.0-0.1) 08/28/22 22:20 Nucleated RBC % (auto) 0 % 08/28/22 22:20 Nucleated RBCs # 0.0 /100WBC 08/28/22 22:20 PT 13.80 SECONDS (12.1-14.9) 08/28/22 22:20 INR 1.03 (0.8-1.2) 08/28/22 22:20 APTT 57.1 SECONDS (23.9-36.7) H 08/28/22 22:20 Sodium 131 mmol/L (136-145) L 08/28/22 22:20 Potassium 5.9 mmol/L (3.5-5.1) H 08/28/22 22:20 Chloride 96 mmol/L (98-107) L 08/28/22 22:20 Carbon Dioxide 21 mmol/L (22-29) L 08/28/22 22:20 Anion Gap 19.9 (5-19) H 08/28/22 22:20 BUN 30 mg/dL (8-23) H 08/28/22 22:20 Creatinine 1.4 mg/dL (0.5-0.9) H 08/28/22 22:20 GFR Calculation 37.9 mL/min (90-130) L 08/28/22 22:20 Glucose 202 mg/dL (65-115) H 08/28/22 22:20 Calculated Osmolality 284 mOsm/kg (285-295) L 08/28/22 22:20 Lactate 1.7 mmol/L (0.5-2.2) 08/29/22 01:35 Calcium 9.7 mg/dL (8.5-10.5) 08/28/22 22:20 Magnesium 1.8 mg/dL (1.7-2.3) 08/28/22 22:20 Total Bilirubin 0.7 mg/dL (0.15-1.2) 08/28/22 22:20 AST 16 U/L (0-32) 08/28/22 22:20 ALT 6 U/L (0-33) 08/28/22 22:20 Alkaline Phosphatase 102 U/L (35-105) 08/28/22 22:20 Troponin T Gen 5 ng/L 27 ng/L (0-10) H 08/29/22 01:35 Total Protein 7.7 g/dL (6.6-8.7) 08/28/22 22:20 Albumin 3.1 g/dL (3.5-5.2) L 08/28/22 22:20 Globulin 4.6 g/dL (1.3-4.6) 08/28/22 22:20 Urine Color Yellow (Yellow) 08/29/22 01:33 Urine Appearance Clear (CLEAR) 08/29/22 01:33 Urine pH 6 (5-7) 08/29/22 01:33 Ur Specific [place] 1.015 (1.005-1.030) 08/29/22 01:33 Urine Protein Neg (Negative) 08/29/22 01:33 Urine Glucose (UA) 2+ (Normal) H 08/29/22 01:33 Urine Ketones 1+ (Negative) H 08/29/22 01:33 Urine Blood Neg (Negative) 08/29/22 01:33 Urine Nitrate Negative (Negative) 08/29/22 01:33 Urine Bilirubin Neg (Negative) 08/29/22 01:33 Urine Urobilinogen Neg mg/dL (Negative) 08/29/22 01:33 Ur Leukocyte Esterase Negative (Negative) 08/29/22 01:33 Urine Opiates Screen Negative ng/mL (Negative) 08/29/22 01:33 Ur Barbiturates Screen Negative ng/mL (Negative) 08/29/22 01:33 Ur Phencyclidine Scrn Negative ng/mL (Negative) 08/29/22 01:33 Ur Amphetamines Screen Negative ng/mL (Negative) 08/29/22 01:33 U Benzodiazepines Scrn Negative ng/mL (Negative) 08/29/22 01:33 Urine Cocaine Screen Negative ng/mL (Negative) 08/29/22 01:33 U Marijuana (THC) Screen Negative ng/mL (Negative) 08/29/22 01:33 Discharge Plan Discharge Patient Disposition: Admitted As Inpatient Admit Provider: Franc Ennis Clinical Impression: Hyperkalemia, Atrial fibrillation with RVR Condition: Fair Coding Level of Care Code ED Sales Planning Manager for Ankit Slaughter
[2022-08-29 01:39] LABS: Add Urine Microscopic? NO; Charge for UA Resulting for Rev
[2022-08-29 01:48] LABS: Bilirubin Urine Neg (Negative); Blood Urine Neg (Negative); Glucose Urine UA 2+ (Normal); Ketones Urine 1+ (Negative); Leukocyte Esterase Urine Negative (Negative); Nitrate Urine Negative (Negative); Protein Urine Neg (Negative); Specific Gravity, Urine 1.015 (1.005-1.030); Urine Appearance Clear (CLEAR); Urine Color Yellow (Yellow); Urobilinogen Urine Neg (Negative); pH Urine 6 (5-7)
--- NOTE | 2022-08-29 01:49 | PC.NURSE ---
In and out cath completed using aseptic technique for urine collection. Pt tolerated well. Incontinence care completed. New brief provided. Pt repositioned in bed. No further needs at this time. Denies any c/o at this time.
[2022-08-29 01:51] LABS: Amphetamines Screen Urine Negative (Negative); Barbiturates Screen Urine Negative (Negative); Benzodiazepines Screen Urine Negative (Negative); Cocaine Screen Urine Negative (Negative); Opiate Screen Urine Negative (Negative); PCP Screen Urine Negative (Negative); THC Screen Urine Negative (Negative)
[2022-08-29 02:04] LABS: Troponin T (5th) Once 20 ng/L (0-10)
[2022-08-29 02:14] LABS: Troponin T (5th) Once 27 ng/L (0-10)
[2022-08-29 02:15] LABS: Lactate (Lactic Acid level) 1.7 mmol/L (0.5-2.2)
--- NOTE | 2022-08-29 03:37 | PM.HP ---
Providers/Chief Complaint Admitting Physician: Franc Ennis MD Primary Care Provider: Nicole Ray MD Chief Complaint: Possible Stroke History of Present Illness Renetta Casey is a 66 year old female with pmh of CVA with rt sided deficit was brought in from home with c/o ?nausea,as well as vomitting going on for past few days, she was also complaining of some generalized abdominal pain as well as overall not felling well for the alst few days, who is the primary critical care unit nurse thought she might be having another stroke. C.T head without contrast has not shown any acute intracranical pathology,c.t abdomen and pelvis with contrast failed to show ant acute abdominal or pelvic pathology, it showed Diverticulosis coli. as well as small pericardial effusion. she was found to be in a.fib with rvr as well as hyperkalemic on arrival for which she did received hyperkalemia cocktail as well as received i.v scott blocking agent in the ER.her other pertinent labs : are: WBC: 16.4 , H&H : 13/41, PLT: 433, Na: 131, k: 5.9 , BUN/SCR: 30/1.4, baseline troponin: 20. Urine analysis : Normal Review of Systems General: Reports: 10 or more systems reviewed and unremarkable except in HPI and below Const: Denies: fever(s), chills, body aches, change in appetite or diaphoresis Card: Denies: palpitations, edema, swelling of feet/ankles, dyspnea on exertion, orthopnea or leg pain with exertion Resp: Denies: dyspnea, productive cough, wheezing or pain on inspiration GI: Denies: abdominal pain, nausea, vomiting, diarrhea or constipation : Denies: flank pain Musc: Denies: back pain, extremity pain or extremity swelling Neuro: Denies: headache(s), difficulty walking or confusion Medications/Allergies Home Medications Medication Instructions Recorded Confirmed Last Taken Type night splint #1 ea 07/22/22 08/26/22 Unknown Rx mupirocin 2 % topical ointment 1 applic topical BID #22 grams 08/17/22 08/26/22 Unknown Rx cam boot #1 ea 08/26/22 08/26/22 Unknown Rx aspirin 325 mg tablet 325 mg PO DAILY 08/29/22 08/29/22 Unknown History atorvastatin 10 mg tablet 10 mg PO QPM 08/29/22 08/29/22 Unknown History divalproex 250 mg tablet,extended 250 mg PO DAILY 08/29/22 08/29/22 Unknown History release 24 hr erythromycin 5 mg/gram (0.5 %) eye 1 applic ophthalmic (eye) DAILY 08/29/22 08/29/22 Unknown History ointment (3.5 gram tube) insulin glargine 100 unit/mL (3 44 unit SUBCUT QPM 08/29/22 08/29/22 Unknown History mL) subcutaneous pen (Lantus Solostar U-100 Insulin) insulin lispro 100 unit/mL See Rx Instructions .Route .COMPLEX 08/29/22 08/29/22 Unknown History subcutaneous solution (Humalog U-100 Insulin) levothyroxine 150 mcg tablet 150 mcg PO DAILY 08/29/22 08/29/22 Unknown History lisinopril 2.5 mg tablet 2.5 mg PO DAILY 08/29/22 08/29/22 Unknown History trazodone 50 mg tablet 50 mg PO QPM 08/29/22 08/29/22 Unknown History venlafaxine 150 mg 150 mg PO DAILY 08/29/22 08/29/22 Unknown History capsule,extended release 24 hr Allergies Allergy/AdvReac Type Severity Reaction Status Date / Time No Known Allergies Allergy Verified 08/29/22 06:14 PFSH Acute PFSH: Social History Smoking and tobacco status: former smoker Vitals/I&O/Wt Last Vital Signs Temp 98.5 F 08/28/22 22:13 Pulse 93 08/29/22 03:07 Resp 20 H 08/29/22 03:07 BP 150/74 08/29/22 03:07 Pulse Ox 98 08/29/22 01:47 O2 Del Method 08/29/22 01:00 08/28/22 08/28/22 08/29/22 14:59 22:59 06:59 Intake Total 1050 / 1050 Balance 1050 / 1050 Weight last 48 hrs Weight 95.254 kg Physical Exam Const: COMMON NORMALS: patient oriented x3 HENMT: COMMON NORMALS: normocephalic, atraumatic, hearing grossly normal bilaterally and external ears normal HEAD & SCALP: normocephalic and atraumatic EXTERNAL EAR: Yes external ears normal Eye: COMMON NORMALS: no scleral icterus GENERAL EYE: appearance normal, both eyes and all related structures Chest: COMMONS NORMALS: normal inspection of the chest and normal palpation of entire chest wall CHEST: Yes Symmetrical chest wall rise Resp: COMMON NORMALS: normal respiratory effort, No retractions, No use of accessory muscles and clear to auscultation bilaterally EFFORT & INSPECTION: Yes symmetric chest movement AUSCULTATION: clear to auscultation bilaterally Cardio: COMMON NORMALS: regular rate, regular rhythm, S1 normal heart sound present, S2 normal heart sound present, No gallops present (Cardio), No murmurs present (Cardio), No rub (Cardio) and Peripheral pulses 2+ throughout RATE: regular rate RHYTHM: regular rhythm HEART SOUNDS: S1 normal heart sound present and S2 normal heart sound present PERIPHERAL PULSES: Peripheral pulses 2+ throughout GI: COMMON NORMALS: Normal to inspection, nondistended, normoactive bowel sounds present, Soft to palpation, non-tender, No hepatosplenomegaly present and no masses AUSCULTATION: Yes normoactive bowel sounds PALPATION: Yes Soft to palpation and Yes No hepatosplenomegaly present RECTAL EXAM: deferred Extremity: COMMON NORMALS: no clubbing, cyanosis or edema and no pedal edema Neuro: COMMON NORMALS: patient oriented x3 Data 08/28/22 22:20 08/28/22 22:20 A&P Assessment and plan (1) Hyperkalemia: (2) Atrial fibrillation with RVR: (3) Hyponatremia: (4) CKD (chronic kidney disease) stage 3, GFR 30-59 ml/min: (5) Leukocytosis: Plan Renetta Casey is a 66 year old female with pmh of CVA with rt sided deficit was brought in from home with c/o ?nausea,as well as vomitting going on for past few days, she was also complaining of some generalized abdominal pain as well as overall not felling well for the alst few days. Assessment: Newly diagnosed A.FIB with RVR : Follow 2D Echo: follow TSH: currently in SR,with well controlled H/R, will start her on metoprolol.T.IV PRN Meets criteria for Therapeutic AC: Hyperkalemia : Has received hyperkalemia cocktail, monitor EKG,monitor repaet BMP CKD V/S VALERIE ON KD : Currently SCR is unkown admission scr is 1.4 monitor BMP Avoid nephrotoxics Monitor I/O Charting Hyponatremia for now will start on gentle I.V Hydration monitor serum sodium Leukocytosis : Follow blood culture urine culture Lactic acid : Normal Procal:Normal for now will start her empirically on ceftriaxone Hypothyroidism : Follow TSH Continue levothyroxine 150mcg po daily for now Diabetes: SSI, Monitor fsg. h/o CVA : Continue aspirin code status : Full code DVT PPX: Not needed on eliquis. Attestations Medical Necessity Statement*: Patient needs to be in hospital for the management of A.Fib with rvr.Anticiapted LOS GReater then 2 midnights. Coding Level of Care Code 04584 Diagnoses Hyperkalemia E87.5 Atrial fibrillation with RVR I48.91 Hyponatremia E87.1 CKD (chronic kidney disease) stage 3, GFR 30-59 ml/min N18.30 Leukocytosis D72.829
--- NOTE | 2022-08-29 04:38 | PC.NURSE ---
Incontinence care provided. Clean brief on.
[2022-08-29] MEDS: enoxaparin 40 mg/0.4 mL Syringe SUBCUT (04:46)
[2022-08-29] MEDS: cefTRIAXone 1,000 MG in sodium chloride 0.9% (plus) 50 ML 100 MG IV (04:46)
[2022-08-29] MEDS: sodium polystyrene sulfonate 15 gm/60 mL Btl PO (04:47)
[2022-08-29] MEDS: amlodipine 5 mg Tablet PO (04:47)
[2022-08-29] MEDS: dextrose 50% syringe 50 mL IVP (04:47)
[2022-08-29] MEDS: insulin regular-human 100 units/1 mL 10 UNIT IVP (04:51)
[2022-08-29] MEDS: sodium chloride 0.9% 1,000 ML 75 ML IV (04:53)
[2022-08-29] MEDS: ondansetron 2 mg/ML SDV 2 mL 4 MG IVP (05:21)
--- NOTE | 2022-08-29 05:53 | PC.NURSE ---
Addendum entered by Harika Hill RN 08/29/22 06:02: Pt is alert but seems to have difficulty communicating verbally/dysarthria. No family @bedside. Original Note: Pt arrived from ER to ICU 7 @0530 via stretcher, on continuos monitoring. Continuos cardiac monitoring continued. No skin issues noted. Boot on R. Leg. R. sided deficits noted. HR 94 SR, Spo2 100% RA, RR 22, BP 141/87.
[2022-08-29 06:05] LABS: Anion Gap 16.8 (5-19); Blood Urea Nitrogen 28 mg/dL (8-23); Carbon Dioxide 22 mmol/L (22-29); Chloride 94 mmol/L (98-107); Glomerular Filtration Rate 37.9 mL/min (90-130); Glucose 288 mg/dL (65-115); Osmolality Calculated 282 mOsm/kg (285-295); Potassium 4.8 mmol/L (3.5-5.1); Sodium 128 mmol/L (136-145)
[2022-08-29 06:46] LABS: Glucose Point of Care 235 mg/dL (70-110)
[2022-08-29 06:46] LABS: Glucose Point of Care 150 mg/dL (70-110)
[2022-08-29 07:49] LABS: Glucose Point of Care 114 mg/dL (70-110)
--- NOTE | 2022-08-29 07:52 | USCV_ITS ---
Renetta Casey Age: 66 Gender: F : 1955 Exam Date: 08/29/2022 09:49 Ordering Phys: Enrique Ray MD Technologist: Shilo Mera Exam Location: [facility] Indication: murmur BP: 173 / 85 HR: 100 Rhythm: Sinus Technical Quality: Adequate MEASUREMENTS (Male / Female) Normal Values 2D ECHO LV Diastolic Diameter PLAX 3.6 cm 4.2 - 5.9 / 3.9 - 5.3 cm LV Systolic Diameter PLAX 2.5 cm IVS Diastolic Thickness 1.2 cm 0.6 - 1.0 / 0.6 - 0.9 cm IVS Systolic Thickness 1.4 cm LVPW Diastolic Thickness 1.1 cm 0.6 - 1.0 / 0.6 - 0.9 cm LVPW Systolic Thickness 1.5 cm LVOT Diameter 2.1 cm LV Ejection Fraction 2D Teich 55.8 % LV Ejection Fraction MOD 2C 67.7 % LV Ejection Fraction 2C AL 68.0 % LA Diameter 3.5 cm M-MODE Aortic Annulus Diameter 3.1 cm LA Ao Ratio MM 1.2 MV E Point Septal Separation 1.2 cm DOPPLER AV Peak Velocity 172.0 cm/s LVOT Peak Velocity 116.0 cm/s AV Area Cont Eq vti 3.4 cm squared AV Area Cont Eq pk 2.3 cm squared MV Area PHT 5.0 cm squared Mitral E to A Ratio 0.7 MV E' Velocity 93.0 cm/s Mitral E to LV E' Septal Ratio 20.6 TR Peak Velocity 227.7 cm/s TR Peak Gradient 20.7 mmHg TV Peak E Velocity 101.0 cm/s Right Atrial Pressure 3.0 mmHg Pulmonary Artery Systolic Pressu 23.7 mmHg FINDINGS Left Ventricle Normal left ventricular size and systolic function, EF 71 %. No regional wall motion abnormalities. Grade I/IV diastolic dysfunction (abnormal relaxation filling pattern), normal to mildly elevated filling pressures. Right Ventricle Right ventricle not well visualized. Right Atrium Right atrium not well visualized. Left Atrium Left atrium not well visualized. Mitral Valve Leaflet morphology could not be delineated. No significant stenosis. Aortic Valve No significant stenosis. Leaflet morphology could not be delineated Tricuspid Valve Tricuspid valve not well visualized. Pulmonic Valve Pulmonic valve not well visualized. Pericardium Small to moderate area of echo-free space suggesting pericardial effusion Aorta Aorta not well visualized. IVC Inferior vena cava not visualized. CONCLUSIONS Normal left ventricular size and systolic function, EF 71 %. No regional wall motion abnormalities. Grade I/IV diastolic dysfunction (abnormal relaxation filling pattern), normal to mildly elevated filling pressures. Features of small to moderate pericardial effusion. Technically difficult study. Echo contrast was used to delineate the left-ventricular endocardium and ejection fraction estimation. Dr Carolyn Pompa MD FACC (Electronically Signed) Final Date: 30 August 2022 07:55 S
--- NOTE | 2022-08-29 07:57 | P.PN_ITS ---
Subjective Subjective: History reviewed. Also discussed with patient caregiver. Reviewed medication with him. She has been having increasing weakness over the last several months. She has been having occasional low blood sugar. She has not been eating well. While in the emergency department atrial fibrillation wit h rapid ventricular rate was noted, although it does not appear that they were able to obtain an EKG during that. She did receive multiple medications including metoprolol, and diltiazem. Patient reports she feels back to baseline currently. Medications: Reviewed: Yes Vitals/I&O/Wt Last Vital Signs Temp 98.5 F 08/28/22 22:13 Pulse 99 08/29/22 06:00 Resp 20 H 08/29/22 04:39 BP 168/85 08/29/22 04:39 Pulse Ox 100 08/29/22 04:39 O2 Del Method 08/29/22 05:52 08/28/22 08/29/22 08/29/22 22:59 06:59 14:59 Intake Total 1175 / 1175 Balance 1175 / 1175 Weight last 48 hrs Weight 94.982 kg Weight 95.254 kg Physical Exam Narrative: General exam is a white female, in no distress. She tries to communicate, but there is an impediment secondary to previous CVA Neck is supple no lymphadenopathy thyromegaly Cardiovascular currently regular rate and rhythm without murmur Lungs clear no wheezing or crackles Abdomen is soft with positive bowel sounds Extremities no cyanosis clubbing or edema. Right hemiparesis is noted. Small sores noted right lateral ankle. No obvious evidence of infection Skin see findings above Neuro right hemiparesis, speech finding difficulty Data 08/28/22 22:20 08/29/22 05:15 Micro: Microbiology 08/29/22 05:15 Blood Culture - Preliminary Blood SPECIMEN COLLECTED 08/29/22 05:32 Blood Culture - Preliminary Blood SPECIMEN COLLECTED A&P Assessment and plan (1) Atrial fibrillation with RVR: Patient presented with atrial fibrillation with rapid ventricular rate She has since converted Add metoprolol 25 mg twice daily Eliquis 5 mg twice daily. Risks and benefits discussed Discontinue Lovenox that she will be going on Eliquis Check echocardiogram Check TSH (2) Hyponatremia: Patient presents with hyponatremia. Even when adjusted for blood sugar it is still low. Lasix 20 mg IV x1 Discontinue saline Repeat BMP tomorrow Random cortisol level (3) Leukocytosis: Unknown cause Repeat tomorrow Ceftriaxone has been started empirically Blood cultures have been drawn and negative to date Abdomen and pelvis CT unrevealing (4) CKD (chronic kidney disease) stage 3, GFR 30-59 ml/min: Stable. Continue to follow (5) Hyperkalemia: Resolved after treatment in the emergency department Check cortisol random Repeat potassium tomorrow (6) CVA (cerebral vascular accident): Patient with past history of CVA with gradual increase in weakness Therapy evaluations Minced and moist diet currently Continue aspirin but reduce to 81 mg considering anticoagulation. Continue statin Note head CT no acute changes (7) Hypothyroidism: TSH will be checked (8) Diabetes mellitus: Sliding scale insulin Start half her dose of long-acting insulin at home. According to she was having occasional episodes of hypoglycemia Plan Other medical problems as outlined in past medical history Eliquis will suffice for DVT prophylaxis May need nursing facility placement Attestations Medical Necessity Statement*: Needs continued hospitalization for evaluation of weakness, treatment of hyponatremia, awaiting cultures, further work-up of atrial fibrillation with rapid ventricular rate Diagnoses Atrial fibrillation with RVR I48.91 Hyponatremia E87.1 Leukocytosis D72.829 CKD (chronic kidney disease) stage 3, GFR 30-59 ml/min N18.30 Hyperkalemia E87.5 CVA (cerebral vascular accident) I63.9 Hypothyroidism E03.9 Diabetes mellitus E11.9
[2022-08-29 08:20] LABS: Valproic Acid Level 35.7 ug/mL (50-100)
[2022-08-29 08:21] LABS: Estmated Average Glucose 128; Hemoglobin A1C 6.1 % (4.0-6.0)
[2022-08-29] MEDS: apixaban 5 mg Tablet PO ×2 (09:28→20:23)
[2022-08-29] MEDS: venlafaxine ER (24HR) 150 mg Capsule PO (09:28)
[2022-08-29] MEDS: lisinopril 5 mg Tablet PO (09:28)
[2022-08-29] MEDS: metoprolol tartrate 25 mg Tablet PO ×2 (09:28→20:23)
[2022-08-29] MEDS: aspirin 81 mg EC Tablet PO (09:28)
[2022-08-29] MEDS: FUROsemide 10 mg/mL SDV 2mL 20 MG IVP (09:28)
[2022-08-29] MEDS: divalproex DR 250 mg Tablet PO ×2 (10:25→17:21)
[2022-08-29 10:52] LABS: Cortisol Random 17.34 ug/dL (2.47-19.5)
--- NOTE | 2022-08-29 12:14 | PC.CHAP ---
Pastoral Care Encounter/Spiritual Assessment Type of Contact [] Declined audio director visit [] Patient/Family/Request visit [] Outpatient visit [] Follow-up visit [] Physician referral [] Code/Alert [x] Routine visit [] Staff referral [] Actively dying [] Patient sleeping [] Family support [] [x] Out of room [] Palliative care [] [] Receiving care in room [] Pre-surgical visit [] Trauma [] Long length of stay [x] ICU visit [] Other: Relational/Emotional Strength [] Patient feels connected with others/family/visitors/staff [] Distress [] Loneliness/isolation [] Abandonment Spirituality of Patient [] Person of Amena [] Attends Uatsdin of their Amena [] Believes in Prayer [] Reads Bible or Jew materials [] There are Spiritual issues to be addressed Physics Department Chair Interventions [x] Prayer [] Active listening [] Non-anxious presence [] Spiritual/emotional support [] Crisis/trauma care [] Spiritual counseling [] Bereavement support [] Provided bereavement packet [] Provided Bible/devotional materials [] Provided toy/stuffed animal, coloring book to patient or family member [] Provided Communion [] Anointing/[place] [] Salvation [x] Completed spiritual assessment [] Other: Impact on Illness or Injury [] Angry [] Fearful [] Anxious [] Often cries [] Exhaustion [] Unable to work [] Unable to attend lutheran [] Unable to walk/stand [] Unable to read [] Unable to drive [] Unable to eat/drink [] Unable to sleep [] Unable to be with family [] Patient intubated [] Other: Summary Time spent with patient
[2022-08-29 12:24] LABS: Adenovirus Not Detected (NOT DETECT); Chlamydia Pneumoniae Not Detected (NOT DETECT); Coronavirus 229E,HKU1,NL63,OC4 Not Detected (NOT DETECT); Human Metapneumovirus Not Detected (NOT DETECT); Human Rhinovirus/Enterovirus Not Detected (NOT DETECT); Influenza A Not Detected (NOT DETECT); Influenza A H1 Not Detected (NOT DETECT); Influenza A H1-2009 Not Detected (NOT DETECT); Influenza A H3 Not Detected (NOT DETECT); Influenza B Not Detected (NOT DETECT); Mycoplasma Pneumoniae Not Detected (NOT DETECT); Parainfluenza Virus Type 1 Not Detected (NOT DETECT); Parainfluenza Virus Type 2 Not Detected (NOT DETECT); Parainfluenza Virus Type 3 Not Detected (NOT DETECT); Parainfluenza Virus Type 4 Not Detected (NOT DETECT); Respiratory Syncytial Virus A Not Detected (NOT DETECT); Respiratory Syncytial Virus B Not Detected (NOT DETECT); SARS-COV-2 Not Detected (NOT DETECT)
[2022-08-29] MEDS: insulin lispro 100 unit/1 mL SUBCUT ×3 (12:56→20:23)
[2022-08-29 13:00] LABS: Glucose Point of Care 161 mg/dL (70-110)
[2022-08-29 17:05] LABS: Glucose Point of Care 235 mg/dL (70-110)
--- NOTE | 2022-08-29 18:28 | PC.NURSE ---
Shift SUmmary: Uneventful shift. Patient rested in bed throughout the day. No cardiac events. Nurse attempted to get patient up to a chair, but she was to weak to safely do so. PT will be working with patient tomorrow. Transferred Patient to CSU bed 103 near end of shift. Report given to and patient received by Gavin GILES.
[2022-08-29 20:13] LABS: Glucose Point of Care 192 mg/dL (70-110)
[2022-08-29] MEDS: atorvastatin 40 mg Tablet 20 MG PO (20:23)
[2022-08-29] MEDS: trazodone 100 mg Tablet PO (20:23)
[2022-08-29] MEDS: insulin glargine 100 units/1 mL 20 UNIT SUBCUT (22:04)
[2022-08-30] VITALS (9 sets, daily range): BP systolic 108–142; BP diastolic 43–65; PULSE 67–75; RESP 16–24; TEMP 36.6–37.6; O2SAT 96–100
[2022-08-30 04:12] LABS: Basophils # 0.1 10^3/uL (0.0-0.1); Basophils % 0.8 %; Eosinophils # 0.4 10^3/uL (0.0-0.8); Hematocrit 38.4 % (37.0-47.0); Hemoglobin 11.9 g/dL (11.5-15.3); Lymphocytes # 2.6 10^3/uL (0.8-4.8); Mean Corpuscular Hemoglobin 29.3 pg (28.0-34.0); Mean Corpuscular Volume 94.6 fl (81-99); Mean Platelet Volume 10.8 fL (7.4-10.4); Monocytes % 13.8 %; Neutrophils # 9.28 10^3/uL (1.8-7.7); Neutrophils % 63.7 %; Nucleated Red Blood Cells % 0 %; Platelet Count 384 10^3/cmm (130-400); Red Blood Count 4.06 10^6/uL (4.1-5.3); Red Cell Distribution Width 12.3 % (12.1-15.1); White Blood Count 14.5 10^3/uL (4.0-10.0)
[2022-08-30] MEDS: levothyroxine 150 mcg Tablet PO (04:37)
[2022-08-30] MEDS: cefTRIAXone 1,000 MG in sodium chloride 0.9% (plus) 50 ML 100 MG IV (04:37)
[2022-08-30 04:39] LABS: Blood Urea Nitrogen 33 mg/dL (8-23); Calcium 9.4 mg/dL (8.5-10.5); Carbon Dioxide 28 mmol/L (22-29); Chloride 95 mmol/L (98-107); Glomerular Filtration Rate 30.3 mL/min (90-130); Glucose 86 mg/dL (65-115); Magnesium 1.9 mg/dL (1.7-2.3); Osmolality Calculated 281 mOsm/kg (285-295); Procalcitonin 0.19 ng/mL (0-0.5); Sodium 132 mmol/L (136-145)
[2022-08-30 06:25] LABS: Glucose Point of Care 97 mg/dL (70-110)
--- NOTE | 2022-08-30 08:01 | PM.PN ---
Subjective Subjective: Renetta does not indicate any concerns. Again, conversation is somewhat difficult but possible considering her language impairment. Denies any pain. Medications: Reviewed: Yes Vitals/I&O/Wt Last Vital Signs Temp 98.0 F 08/30/22 07:55 Pulse 72 08/30/22 07:55 Resp 16 08/30/22 07:55 BP 121/56 08/30/22 07:55 Pulse Ox 99 08/30/22 07:55 O2 Del Method 08/30/22 07:55 08/29/22 08/30/22 08/30/22 22:59 06:59 14:59 Intake Total 560 / 1160 410 / 1570 Balance 560 / 460 410 / 870 Weight last 48 hrs Weight 94.982 kg Weight 95.254 kg Physical Exam Narrative: General exam is a white female, in no distress. Neck is supple no lymphadenopathy thyromegaly Cardiovascular currently regular rate and rhythm without murmur Lungs clear no wheezing or crackles Abdomen is soft with positive bowel sounds Extremities no cyanosis clubbing or edema. Right hemiparesis is noted. Small sores noted right lateral ankle. No obvious evidence of infection Skin see findings above Neuro right hemiparesis, speech finding difficulty. Unchanged Data 08/30/22 03:37 08/30/22 03:37 Micro: Microbiology 08/29/22 05:15 Blood Culture - Preliminary Blood NEGATIVE TO DATE 08/29/22 05:32 Blood Culture - Preliminary Blood NEGATIVE TO DATE A&P Assessment and plan (1) Atrial fibrillation with RVR: Patient presented with atrial fibrillation with rapid ventricular rate She has since converted Continue metoprolol 25 mg twice daily Continue Eliquis 5 mg twice daily. Risks and benefits discussed Echocardiogram was a technically difficult study. It demonstrated preserved EF, 1/4 diastolic dysfunction, small pericardial effusion Check TSH (2) Hyponatremia: Patient presents with hyponatremia. Even when adjusted for blood sugar it is still low. Lasix 20 mg IV x1 given 08/29 Saline was discontinued Sodium is improved, but creatinine worsened. Potassium borderline high as well. Hold GARRICK inhibitor We will go ahead and reinitiate saline. She did have contrast dye with CT Repeat BMP tomorrow Random cortisol level checked and normal. TSH normal (3) Leukocytosis: Unknown cause Blood cultures have been drawn and negative to date Abdomen and pelvis CT unrevealing but did show rounded atelectasis, right lung. Considering this we will change Rocephin to Zosyn in case aspiration occurred. Speech therapy consultation. Currently on minced and moist diet (4) CKD (chronic kidney disease) stage 3, GFR 30-59 ml/min: Acute kidney injury superimposed on chronic kidney disease. Discontinue GARRICK inhibitor. Monitor potassium closely. Avoid renal toxic medication. Add saline. Note that she got contrast with her CT (5) Hyperkalemia: BMP tomorrow Cortisol level was checked and normal Repeat potassium tomorrow (6) CVA (cerebral vascular accident): Patient with past history of CVA with gradual increase in weakness Therapy evaluations Minced and moist diet currently Continue aspirin but reduce to 81 mg considering anticoagulation. Continue statin Note head CT no acute changes (7) Hypothyroidism: TSH checked and normal (8) Diabetes mellitus: Sliding scale insulin Start half her dose of long-acting insulin at home. According to she was having occasional episodes of hypoglycemia Blood sugar was 86 this morning. Will reduce to 15 units. Plan Other medical problems as outlined in past medical history Eliquis will suffice for DVT prophylaxis May need nursing facility placement. Discharge planning working on this. Attestations Medical Necessity Statement*: Needs continued hospitalization, for IV antibiotics secondary to possible right-sided pneumonia, close follow-up of acute kidney injury with reinitiation of fluids, close follow-up of sodium Diagnoses Atrial fibrillation with RVR I48.91 Hyponatremia E87.1 Leukocytosis D72.829 CKD (chronic kidney disease) stage 3, GFR 30-59 ml/min N18.30 Hyperkalemia E87.5 CVA (cerebral vascular accident) I63.9 Hypothyroidism E03.9 Diabetes mellitus E11.9
[2022-08-30] MEDS: sodium chloride 0.9% 1,000 ML 100 ML IV ×2 (08:14→19:46)
[2022-08-30] MEDS: piperacillin-tazobactam 3.375 GM in sodium chloride 0.9% (plus) 50 ML IV ×3 (08:15→19:49)
[2022-08-30] MEDS: divalproex DR 250 mg Tablet PO ×2 (08:53→17:27)
[2022-08-30] MEDS: aspirin 81 mg EC Tablet PO (08:54)
[2022-08-30] MEDS: venlafaxine ER (24HR) 150 mg Capsule PO (08:54)
[2022-08-30] MEDS: metoprolol tartrate 25 mg Tablet PO ×2 (08:54→19:48)
[2022-08-30] MEDS: apixaban 5 mg Tablet PO ×2 (08:54→19:47)
--- NOTE | 2022-08-30 10:34 | PC.CHAP ---
Pastoral Care Encounter/Spiritual Assessment Type of Contact [] Declined recruitment specialist visit [] Patient/Family/Request visit [] Outpatient visit [] Follow-up visit [] Physician referral [] Code/Alert [x] Routine visit [] Staff referral [] Actively dying [] Patient sleeping [] Family support [] [] Out of room [] Palliative care [] [] Receiving care in room [] Pre-surgical visit [] Trauma [] Long length of stay [] ICU visit [] Other: Relational/Emotional Strength [x] Patient feels connected with others/family/visitors/staff [] Distress [] Loneliness/isolation [] Abandonment Spirituality of Patient [x] Person of Amena [] Attends Restoration of their Amena [x] Believes in Prayer [] Reads Bible or Sikh materials [] There are Spiritual issues to be addressed Financial Coordinator Interventions [x] Prayer [x] Active listening [] Non-anxious presence [x] Spiritual/emotional support [] Crisis/trauma care [] Spiritual counseling [] Bereavement support [] Provided bereavement packet [] Provided Bible/devotional materials [] Provided toy/stuffed animal, coloring book to patient or family member [] Provided Communion [] Anointing/[place] [] Salvation [x] Completed spiritual assessment [] Other: Impact on Illness or Injury [] Angry [] Fearful [] Anxious [] Often cries [] Exhaustion [] Unable to work [] Unable to attend moravian [] Unable to walk/stand [] Unable to read [] Unable to drive [] Unable to eat/drink [] Unable to sleep [] Unable to be with family [] Patient intubated [] Other: Summary Time spent with patient 5 min
[2022-08-30 11:05] LABS: Glucose Point of Care 252 mg/dL (70-110)
[2022-08-30] MEDS: insulin lispro 100 unit/1 mL SUBCUT ×3 (11:48→19:48)
[2022-08-30 17:01] LABS: Glucose Point of Care 186 mg/dL (70-110)
[2022-08-30 19:40] LABS: Glucose Point of Care 249 mg/dL (70-110)
[2022-08-30] MEDS: trazodone 100 mg Tablet PO (19:48)
[2022-08-30] MEDS: atorvastatin 40 mg Tablet 20 MG PO (19:48)
[2022-08-30] MEDS: insulin glargine 100 units/1 mL 15 UNIT SUBCUT (19:49)
[2022-08-31] VITALS (7 sets, daily range): BP systolic 103–123; BP diastolic 40–58; PULSE 69–77; RESP 16–22; TEMP 36.4–37.1; O2SAT 94–97
[2022-08-31 05:18] LABS: Basophils # 0.1 10^3/uL (0.0-0.1); Basophils % 0.8 %; Eosinophils # 0.7 10^3/uL (0.0-0.8); Eosinophils % 4.2 %; Hematocrit 35.3 % (37.0-47.0); Hemoglobin 11.2 g/dL (11.5-15.3); Lymphocytes # 3.3 10^3/uL (0.8-4.8); Lymphocytes % 20.2 %; Mean Corpuscular HGB Conc 31.7 g/dL (30.0-36.0); Mean Corpuscular Hemoglobin 29.6 pg (28.0-34.0); Mean Corpuscular Volume 93.1 fl (81-99); Mean Platelet Volume 10.7 fL (7.4-10.4); Monocytes # 2.5 10^3/uL (0.2-0.9); Monocytes % 15.5 %; Neutrophils # 9.43 10^3/uL (1.8-7.7); Neutrophils % 58.4 %; Nucleated Red Blood Cells % 0 %; Platelet Count 278 10^3/cmm (130-400); Red Blood Count 3.79 10^6/uL (4.1-5.3); Red Cell Distribution Width 12.5 % (12.1-15.1); White Blood Count 16.1 10^3/uL (4.0-10.0)
[2022-08-31 05:38] LABS: Blood Urea Nitrogen 38 mg/dL (8-23); Calcium 8.6 mg/dL (8.5-10.5); Carbon Dioxide 21 mmol/L (22-29); Chloride 96 mmol/L (98-107); Glomerular Filtration Rate 30.3 mL/min (90-130); Glucose 62 mg/dL (65-115); Osmolality Calculated 275 mOsm/kg (285-295); Sodium 129 mmol/L (136-145)
[2022-08-31] MEDS: piperacillin-tazobactam 3.375 GM in sodium chloride 0.9% (plus) 50 ML IV (05:42)
[2022-08-31] MEDS: levothyroxine 150 mcg Tablet PO (05:42)
[2022-08-31 05:47] LABS: Anion Gap 17.1 (5-19)
[2022-08-31 05:48] LABS: Potassium 5.1 mmol/L (3.5-5.1)
[2022-08-31 05:55] LABS: Glucose Point of Care 61 mg/dL (70-110)
[2022-08-31 06:17] LABS: Glucose Point of Care 72 mg/dL (70-110)
[2022-08-31] MEDS: aspirin 81 mg EC Tablet PO (08:33)
[2022-08-31] MEDS: metoprolol tartrate 25 mg Tablet PO ×2 (08:33→20:30)
[2022-08-31] MEDS: divalproex DR 250 mg Tablet PO ×2 (08:33→17:57)
[2022-08-31] MEDS: venlafaxine ER (24HR) 150 mg Capsule PO (08:33)
[2022-08-31] MEDS: apixaban 5 mg Tablet PO ×2 (08:33→20:25)
[2022-08-31] MEDS: sodium chloride 0.9% 1,000 ML 100 ML IV ×2 (09:34→20:34)
--- NOTE | 2022-08-31 10:12 | PM.PN ---
Subjective Subjective: 66-year-old female with baseline impairment from previous CVA right-sided hemiparesis presented to the hospital with A-fib RVR converted to sinus rhythm, significantly weak at home, she has been worsening the last few months likely related to her chronic disease. Patient was placed on Zosyn for possible aspiration pneumonia. Speech therapy consulted. She was put on dysphagia diet. She was diagnosed with chronic hyponatremia and hypokalemia. Which was corrected gradually. TSH, cortisol normal creatinine around 1.7 with chronic kidney disease, she did get contrast with CT abdomen pelvis which was unremarkable, she will go to assisted for her significant weakness and right-sided hemiparesis. He will need Eliquis at the time of discharge for her paroxysmal A-fib. Echo showed EF 71% no regional wall motion abnormality Vitals/I&O/Wt Last Vital Signs Temp 98.8 F 08/31/22 03:49 Pulse 69 08/31/22 08:00 Resp 22 H 08/31/22 08:00 BP 123/56 08/31/22 08:00 Pulse Ox 97 08/31/22 08:00 O2 Del Method 08/31/22 08:00 08/30/22 08/31/22 08/31/22 22:59 06:59 14:59 Intake Total 1410 / 1820 1050 / 2870 Balance 1410 / 1820 1050 / 2870 Physical Exam Narrative: Right-sided weakness Pleasant and cooperative Eating breakfast Hemodynamically stable Currently on room air Right foot in Cam boot Abdomen soft Able to comprehend Data 08/31/22 04:53 08/31/22 04:53 Micro: Microbiology 08/29/22 05:15 Blood Culture - Preliminary Blood NEGATIVE TO DATE 08/29/22 05:32 Blood Culture - Preliminary Blood NEGATIVE TO DATE A&P Assessment and plan (1) Diabetes mellitus: (2) Hypothyroidism: (3) CVA (cerebral vascular accident): (4) CKD (chronic kidney disease) stage 3, GFR 30-59 ml/min: (5) Hyponatremia: (6) Atrial fibrillation with RVR: (7) Acquired right foot drop: Plan RVR: Resolved Continue metoprolol and Eliquis Hyponatremia: Continue IV fluids for now Lasix held Aspiration pneumonia concern she will get Augmentin at the time of discharge Awaiting placement CVA with right-sided weakness senior care placement Labile blood sugar, this morning blood sugar was 72, it has been above 200s adjust insulin regimen, hemoglobin A1c 6.1, with worsening of kidney function we need to readjust the dose of insulin Right foot drop patient has a cam boot Continue levothyroxine Change Zosyn to Augmentin Chronic hyponatremia: Poor p.o. intake, clinically dehydrated continue normal saline for now Attestations Medical Necessity Statement*: Awaiting placement Diagnoses Diabetes mellitus E11.9 Hypothyroidism E03.9 CVA (cerebral vascular accident) I63.9 CKD (chronic kidney disease) stage 3, GFR 30-59 ml/min N18.30 Hyponatremia E87.1 Atrial fibrillation with RVR I48.91 Acquired right foot drop M21.371
[2022-08-31 11:34] LABS: Glucose Point of Care 134 mg/dL (70-110)
[2022-08-31 17:09] LABS: Glucose Point of Care 220 mg/dL (70-110)
[2022-08-31] MEDS: amoxicillin-clav 875-125 mg Tablet 1 TAB PO (17:56)
[2022-08-31] MEDS: insulin lispro 100 unit/1 mL SUBCUT (17:57)
[2022-08-31] MEDS: atorvastatin 40 mg Tablet 20 MG PO (20:25)
[2022-08-31] MEDS: trazodone 100 mg Tablet PO (20:25)
[2022-08-31] MEDS: insulin glargine 100 units/1 mL 15 UNIT SUBCUT (20:33)
[2022-08-31 23:11] LABS: Glucose Point of Care 224 mg/dL (70-110)
[2022-09-01] VITALS: PULSE 91; RESP 18; TEMP 37
[2022-09-01 04:00] VITALS: BP 105/49; PULSE 69; RESP 18; TEMP 36.9
[2022-09-01 04:16] LABS: Anion Gap 13.7 (5-19); Blood Urea Nitrogen 32 mg/dL (8-23); Calcium 8.4 mg/dL (8.5-10.5); Carbon Dioxide 21 mmol/L (22-29); Chloride 99 mmol/L (98-107); Glomerular Filtration Rate 37.9 mL/min (90-130); Glucose 156 mg/dL (65-115); Osmolality Calculated 278 mOsm/kg (285-295); Potassium 4.7 mmol/L (3.5-5.1); Sodium 129 mmol/L (136-145)
[2022-09-01] MEDS: levothyroxine 150 mcg Tablet PO (05:29)
[2022-09-01 06:00] VITALS: PULSE 67
[2022-09-01 06:37] LABS: Glucose Point of Care 125 mg/dL (70-110)
[2022-09-01] MEDS: sodium chloride 0.9% 1,000 ML 100 ML IV (06:42)
--- NOTE | 2022-09-01 07:34 | P.DS_ITS ---
Discharge Providers Date of Admission: 08/29/22 03:25 Date of Discharge: August 31, 2022 Attending Provider at Admission: Franc Ennis MD Attending Provider at Discharge: Blanquita Hdez MD Primary Care Provider: Nicole Ray MD Diagnoses at Discharge Discharge Diagnosis (1) Hyperkalemia: Status: Acute (2) Atrial fibrillation with RVR: Status: Acute (3) Hyponatremia: Status: Acute (4) CKD (chronic kidney disease) stage 3, GFR 30-59 ml/min: Status: Acute (5) Leukocytosis: Status: Acute Reason for Visit Reason for Visit: Possible Stroke Hospital Course Hospital Course 66-year-old female with baseline impairment from previous CVA right-sided hemiparesis presented to the hospital with A-fib RVR converted to sinus rhythm, significantly weak at home, she has been worsening the last few months likely related to her chronic disease. Patient was placed on Zosyn for possible aspiration pneumonia. Speech therapy consulted. She was put on dysphagia diet. She was diagnosed with chronic hyponatremia and hypokalemia. Which was corrected gradually. TSH, cortisol normal creatinine around 1.7 with chronic kidney disease, she did get contrast with CT abdomen pelvis which was unremarkable, she will go to long term for her significant weakness and right-sided hemiparesis. He will need Eliquis at the time of discharge for her paroxysmal A-fib. Echo showed EF 71% no regional wall motion abnormality. Physical Exam Narrative: Right-sided hemiparesis Awake and alert Pleasant and cooperative Normotensive Currently on room air Eating breakfast Clinically looks slightly dehydrated Discharge Data Studies Completed and Pending Completed Studies During Hospitalization Category Date Time Status CT abdomen pelvis w con* [id number] Stat Cat Scan 08/29/22 00:[address] head thrombolytic [id number] Stat Cat Scan 08/28/22 22:24 Completed XR chest 1V portable [id number] Stat Exams 08/28/22 22:24 Completed CV. echo wo/w contrast [id number] Routine Ultrasound 08/29/22 07:52 Completed Pending at discharge Category Date Time Status Blood Culture Routine Lab 08/29/22 05:15 Results Radiology Impressions Chest X-Ray 08/28/22 22:24 IMPRESSION: No acute cardiopulmonary abnormality. Head CT 08/28/22 22:24 IMPRESSION: No acute intracranial abnormality. Mild sinusitis. ASSESSMENT: ASPECTS ([place] Stroke Program Early CT Score) is 10. Abdomen/Pelvis CT 08/29/22 00:43 IMPRESSION: 1. No acute abnormality is seen in the abdomen or pelvis. 2. Diverticulosis coli. 3. Atherosclerosis. 4. Small pericardial effusion. COMMENTS: Consistent with the [employer]'s Incidental Findings Committee white paper (J Am Jone [employer]iol 2018): Any incidental renal lesion less than 1 cm or classified as too small to characterize, or any incidental cystic renal lesion characterized as simple-appearing, is likely benign. No follow-up imaging is recommended for these lesions per consensus recommendations based on imaging criteria. Laboratory Results WBC 16.1 10^3/uL (4.0-10.0) H 08/31/22 04:53 RBC 3.79 10^6/uL (4.1-5.3) L 08/31/22 04:53 Hgb 11.2 g/dL (11.5-15.3) L 08/31/22 04:53 Hct 35.3 % (37.0-47.0) L 08/31/22 04:53 MCV 93.1 fl (81-99) 08/31/22 04:53 MCH 29.6 pg (28.0-34.0) 08/31/22 04:53 MCHC 31.7 g/dL (30.0-36.0) 08/31/22 04:53 RDW 12.5 % (12.1-15.1) 08/31/22 04:53 Plt Count 278 10^3/cmm (130-400) 08/31/22 04:53 MPV 10.7 fL (7.4-10.4) H 08/31/22 04:53 Neut % (Auto) 58.4 % 08/31/22 04:53 Lymph % (Auto) 20.2 % 08/31/22 04:53 [place] % (Auto) 15.5 % 08/31/22 04:53 Eos % (Auto) 4.2 % 08/31/22 04:53 Baso % (Auto) 0.8 % 08/31/22 04:53 Neut # (Auto) 9.43 10^3/uL (1.8-7.7) H 08/31/22 04:53 Lymph # (Auto) 3.3 10^3/uL (0.8-4.8) 08/31/22 04:53 [place] # (Auto) 2.5 10^3/uL (0.2-0.9) H 08/31/22 04:53 Eos # (Auto) 0.7 10^3/uL (0.0-0.8) 08/31/22 04:53 Baso # (Auto) 0.1 10^3/uL (0.0-0.1) 08/31/22 04:53 Nucleated RBC % (auto) 0 % 08/31/22 04:53 Nucleated RBCs # 0.0 /100WBC 08/31/22 04:53 PT 13.80 SECONDS (12.1-14.9) 08/28/22 22:20 INR 1.03 (0.8-1.2) 08/28/22 22:20 APTT 57.1 SECONDS (23.9-36.7) H 08/28/22 22:20 Sodium 129 mmol/L (136-145) L 08/31/22 04:53 Potassium 5.1 mmol/L (3.5-5.1) 08/31/22 04:53 Chloride 96 mmol/L (98-107) L 08/31/22 04:53 Carbon Dioxide 21 mmol/L (22-29) L 08/31/22 04:53 Anion Gap 17.1 (5-19) 08/31/22 04:53 BUN 38 mg/dL (8-23) H 08/31/22 04:53 Creatinine 1.7 mg/dL (0.5-0.9) H 08/31/22 04:53 GFR Calculation 30.3 mL/min (90-130) L 08/31/22 04:53 Glucose 62 mg/dL (65-115) L 08/31/22 04:53 POC Glucose 72 mg/dL (70-110) 08/31/22 06:14 Estimat Average Glucose 128 08/29/22 05:15 Hemoglobin A1c 6.1 % (4.0-6.0) H 08/29/22 05:15 Calculated Osmolality 275 mOsm/kg (285-295) L 08/31/22 04:53 Lactate 1.7 mmol/L (0.5-2.2) 08/29/22 01:35 Calcium 8.6 mg/dL (8.5-10.5) 08/31/22 04:53 Magnesium 1.9 mg/dL (1.7-2.3) 08/30/22 03:37 Total Bilirubin 0.7 mg/dL (0.15-1.2) 08/28/22 22:20 AST 16 U/L (0-32) 08/28/22 22:20 ALT 6 U/L (0-33) 08/28/22 22:20 Alkaline Phosphatase 102 U/L (35-105) 08/28/22 22:20 Troponin T Gen 5 ng/L 27 ng/L (0-10) H 08/29/22 01:35 Total Protein 7.7 g/dL (6.6-8.7) 08/28/22 22:20 Albumin 3.1 g/dL (3.5-5.2) L 08/28/22 22:20 Globulin 4.6 g/dL (1.3-4.6) 08/28/22 22:20 Procalcitonin 0.19 ng/mL (0-0.5) 08/30/22 03:37 TSH 2.10 uIU/mL (0.27-4.20) 08/29/22 05:15 Random Cortisol 17.34 ug/dL (2.47-19.5) 08/29/22 05:15 Urine Color Yellow (Yellow) 08/29/22 01:33 Urine Appearance Clear (CLEAR) 08/29/22 01:33 Urine pH 6 (5-7) 08/29/22 01:33 Ur Specific [place] 1.015 (1.005-1.030) 08/29/22 01:33 Urine Protein Neg (Negative) 08/29/22 01:33 Urine Glucose (UA) 2+ (Normal) H 08/29/22 01:33 Urine Ketones 1+ (Negative) H 08/29/22 01:33 Urine Blood Neg (Negative) 08/29/22 01:33 Urine Nitrate Negative (Negative) 08/29/22 01:33 Urine Bilirubin Neg (Negative) 08/29/22 01:33 Urine Urobilinogen Neg mg/dL (Negative) 08/29/22 01:33 Ur Leukocyte Esterase Negative (Negative) 08/29/22 01:33 Urine Opiates Screen Negative ng/mL (Negative) 08/29/22 01:33 Ur Barbiturates Screen Negative ng/mL (Negative) 08/29/22 01:33 Valproic Acid 35.7 ug/mL (50-100) L 08/29/22 05:15 Ur Phencyclidine Scrn Negative ng/mL (Negative) 08/29/22 01:33 Ur Amphetamines Screen Negative ng/mL (Negative) 08/29/22 01:33 U Benzodiazepines Scrn Negative ng/mL (Negative) 08/29/22 01:33 Urine Cocaine Screen Negative ng/mL (Negative) 08/29/22 01:33 U Marijuana (THC) Screen Negative ng/mL (Negative) 08/29/22 01:33 Coronavirus 229E (PCR) Not detected (NOT DETECT) 08/29/22 10:20 SARS-CoV-2 (PCR) Not detected (NOT DETECT) 08/29/22 10:20 Vitals Last Vital Signs Temp 98.8 F 08/31/22 03:49 Pulse 69 08/31/22 08:00 Resp 22 H 08/31/22 08:00 BP 123/56 08/31/22 08:00 Pulse Ox 97 08/31/22 08:00 O2 Del Method 08/31/22 08:00 Discharge Plan Discharge Patient Disposition: Xfer SNF Condition: Fair Prescriptions: New metoprolol tartrate 25 mg Tablet 25 mg PO BID@0900,2100 Qty: 90 3RF Eliquis 5 mg Tablet 5 mg PO BID@0900,2100 Qty: 120 3RF atorvastatin 40 mg Tablet 20 mg PO BEDTIME Qty: 90 0RF amoxicillin-pot clavulanate 875-125 mg tablet 1 tab PO BID Qty: 10 0RF Continued (DME) night splint See Rx Instructions .Route .MEDSUPPLY Qty: 1 0RF Rx Instructions: As directed (DME) cam boot See Rx Instructions .Route .MEDSUPPLY Qty: 1 0RF Rx Instructions: As directed mupirocin 2 % ointment 1 applic topical BID Qty: 22 0RF trazodone 50 mg tablet 50 mg PO QPM venlafaxine 150 mg capsule,extended release 24hr 150 mg PO DAILY levothyroxine 150 mcg tablet 150 mcg PO DAILY Humalog U-100 Insulin 100 unit/mL solution See Rx Instructions .ROUTE .COMPLEX Rx Instructions: as directed sliding scale divalproex 250 mg tablet extended release 24 hr 250 mg PO DAILY Lantus Solostar U-100 Insulin 100 unit/mL (3 mL) insulin pen 44 unit SUBCUT QPM erythromycin 5 mg/gram (0.5 %) Ointment 1 applic OPHTHALMIC (EYE) DAILY Discontinued atorvastatin 10 mg tablet 10 mg PO QPM aspirin 325 mg Tablet 325 mg PO DAILY lisinopril 2.5 mg tablet 2.5 mg PO DAILY Discharge Orders: Discharge Order (Routine); Ordered 09/01/22 Ordered By: Blanquita Hdez Referrals: Nicole Ray MD [Primary Care Provider] - Discharge Attestations Time Spent in Discharge Care*: less than 30 min Quality Metrics Clinical Quality Measures [ No reported AMI, CVA or VTE this stay] Coding Level of Care Code Acute Code for Chg Fwd Diagnoses Hyperkalemia E87.5 Atrial fibrillation with RVR I48.91 Hyponatremia E87.1 CKD (chronic kidney disease) stage 3, GFR 30-59 ml/min N18.30 Leukocytosis D72.829
[2022-09-01] MEDS: amoxicillin-clav 875-125 mg Tablet 1 TAB PO (08:29)
[2022-09-01 08:30] LABS: SARS Covid-2 Antigen negative (Negative)
[2022-09-01] MEDS: divalproex DR 250 mg Tablet PO (08:30)
[2022-09-01] MEDS: venlafaxine ER (24HR) 150 mg Capsule PO (08:30)
[2022-09-01] MEDS: sodium chloride 1 gm Tablet PO (08:30)
[2022-09-01] MEDS: aspirin 81 mg EC Tablet PO (08:31)
[2022-09-01] MEDS: metoprolol tartrate 25 mg Tablet PO (08:34)
[2022-09-01] MEDS: apixaban 5 mg Tablet PO (08:34)
--- NOTE | 2022-09-01 10:22 | PC.NURSE ---
Report called to Sharmin ARRINGTON at [facility].
[2022-09-01 11:08] VITALS: BP 111/66
--- NOTE | 2022-09-01 11:12 | PC.NURSE ---
Discharged to [facility] via van, per spouse. Pt and spouse voiced understanding of DC instructions. IV removed with cathlon intact. Belongings sent with pt.
--- NOTE | 2022-09-01 11:15 | PC.SOCIAL ---
IMM Update pg 2 of IMM updated and reviewed w/ patient. Copy provided and Copy dated, initialed and placed in chart.
== END 2022-09-01 11:12 | disposition skilled nursing facility (03) | DRG 309 ==
LOC: ER 08-29 01:20 → ICU 08-29 03:22 → CSU 08-29 18:31
PROVIDERS: Internal Medicine; Admitting Provider Internal Medicine; Emergency Provider Emergency Medicine; PCP Family Medicine; Visit Provider Internal Medicine
DX: I48.0 Paroxysmal atrial fibrillation (principal); E87.1 Hypo-osmolality and hyponatremia; I69.951 Hemiplegia and hemiparesis following unspecified cerebrovascular disease affecting right dominant side; I69.328 Other speech and language deficits following cerebral infarction; E87.5 Hyperkalemia; E11.22 Type 2 diabetes mellitus with diabetic chronic kidney disease; N18.30 Chronic kidney disease, stage 3 unspecified; Z79.4 Long term (current) use of insulin; Z87.891 Personal history of nicotine dependence; E03.9 Hypothyroidism, unspecified; K57.90 Diverticulosis of intestine, part unspecified, without perforation or abscess without bleeding; M21.371 Foot drop, right foot
CPT/HCPCS: 36415; 36416; 51798; 70450; 71045; 73610; 74177; 80048; 80053; 80164; 80306; 81003; 82533; 82962; 83036; 83605; 83735; 84145; 84443; 84484; 85025; 85610; 85730; 87040; 87426; 87635; 92523; 92526; 92610; 93005; 96365; 96372; 96375; 97110; 97161; 97167; 97530; 97535; 99291; 99292; C8929; J0610; J0696; J1650; J1815; J1940; J2405; J2543; J3490; J7030; Q9967

== ENCOUNTER → 2022-09-16 09:22 | Outpatient (BNVA) | payer MEDICARE, SELFPAY | PROVIDERS: PCP Family Medicine; Visit Provider Podiatrist Foot & Ankle Surgery | DX: M25.471 Effusion, right ankle (principal); M21.541 Acquired clubfoot, right foot; L97.322 Non-pressure chronic ulcer of left ankle with fat layer exposed | CPT/HCPCS: 11042; 73610 ==

== ENCOUNTER → 2022-09-23 14:28 | Outpatient (BNVA) | payer MEDICARE, SELFPAY | PROVIDERS: PCP Family Medicine; Visit Provider Thoracic Surgery (Cardiothoracic Vascular Surgery) | DX: I96 Gangrene, not elsewhere classified (principal); L89.892 Pressure ulcer of other site, stage 2 | CPT/HCPCS: 11042 ==

== ENCOUNTER → 2022-09-30 15:03 | Outpatient (BNVA) | payer MEDICARE, SELFPAY | PROVIDERS: PCP Family Medicine; Visit Provider Thoracic Surgery (Cardiothoracic Vascular Surgery) | DX: I96 Gangrene, not elsewhere classified (principal); L89.892 Pressure ulcer of other site, stage 2 | CPT/HCPCS: 11042 ==

== ENCOUNTER 2022-10-03 10:41 | Outpatient (CLI) | payer MEDICARE, SELFPAY ==
--- NOTE | 2022-10-03 11:00 | XR_ITS ---
WS: [id number] XR shoulder RT min 2V* [id number] REASON FOR EXAM: PAIN IN R SHOULDER FINDINGS: No fracture or focal bone lesion. Mild to moderate narrowing of the acromioclavicular joint with mild subchondral sclerosis. Glenohumeral joint space not well demonstrated but appears to be somewhat narrowed with subchondral s clerosis in the humeral head and glenoid. No soft tissue abnormality. 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
== END 2022-10-03 10:42 | disposition home or self-care (01) ==
PROVIDERS: PCP Family Medicine; Visit Provider Family Medicine
DX: M19.011 Primary osteoarthritis, right shoulder
CPT/HCPCS: 73030

== ENCOUNTER → 2022-10-07 13:02 | Outpatient (BNVA) | payer MEDICARE, SELFPAY | PROVIDERS: PCP Family Medicine; Visit Provider Thoracic Surgery (Cardiothoracic Vascular Surgery) | DX: I96 Gangrene, not elsewhere classified (principal); L89.892 Pressure ulcer of other site, stage 2 | CPT/HCPCS: 97597; A6219 ==

== ENCOUNTER → 2022-10-14 10:14 | Outpatient (BNVA) | payer MEDICARE, SELFPAY | PROVIDERS: PCP Family Medicine; Visit Provider Thoracic Surgery (Cardiothoracic Vascular Surgery) | DX: Z09 Encounter for follow-up examination after completed treatment for conditions other than malignant neoplasm (principal); S99.921A Unspecified injury of right foot, initial encounter; X58.XXXA Exposure to other specified factors, initial encounter | CPT/HCPCS: 99212; 99213; A6212 ==

== ENCOUNTER 2022-11-07 12:49 | Outpatient (CLI) | payer MEDICARE, SELFPAY ==
--- NOTE | 2022-11-07 13:06 | CT_ITS ---
WS: [id number] CT chest wo con [id number] HISTORY: ABNORMAL FINDINGS ON DIAGNOSTIC IMAGING TECHNIQUE: Axial imaging performed through the thorax. Coronal and sagittal reformats are submitted. All CT scans at [facility] use at least one of these dose optimization techniques: automated exposure control; mA and/or kV adjustment per patient size (includes targeted exams where dose is mat ched to clinical indication); or iterative reconstruction. CONTRAST: None DLP: 392.94 mGy.cm COMPARISON: 10/14/2021, 06/03/2021 Study is compromised by motion artifact and poor inspiration. Lungs and central airway: Low lung volumes due to poor inspiration. Crowding of the lung markings and interstitial thickening would likely improve with better inspiratory effort. Solid pleural-based mas s in the RIGHT lower lobe with adjacent pleural thickening is reidentified. Mass has not increased in size since 06/03/2021. Mass measures 2.9 x 2.5 cm favor rounded atelectasis. No new mass. Pleura: No pleural effusion but there is pleural thickening at the RIGHT lung base associated with th e rounded atelectasis. Heart and pericardium: Mild cardiomegaly with no pericardial effusion. Mediastinum and myrtle: No mediastinum or hilar adenopathy. Vessels: Mild atherosclerosis aorta. Mild atherosclerosis coronary arteries. Chest wall and lower neck: No soft tissue masses. Upper abdomen: Prior cholecystectomy. Mild pancreatic atrophy. No adrenal mass. Osseous structures: No destructive process. CT/CT chest wo con [id number] IMPRESSION: 1. Continued volume loss in the RIGHT thorax with a focal mass which is most l ikely rounded atelectasis in the RIGHT lower lobe. Solid mass measures 2.9 x 2. 5 cm and is unchanged since 06/03/2021. Recommend continued serial follow-up as recommended on the prior CT of 05/24/2022. 2. Mild atherosclerosis aorta and coronary arteries. 3. Prior cholecystectomy. 4. No mediastinal or hilar adenopathy.
== END 2022-11-07 12:50 | disposition home or self-care (01) ==
PROVIDERS: PCP Family Medicine; Visit Provider Family Medicine
DX: R93.89 Abnormal findings on diagnostic imaging of other specified body structures (principal); Z90.49 Acquired absence of other specified parts of digestive tract
CPT/HCPCS: 71250

== ENCOUNTER → 2022-12-23 09:14 | Outpatient (BNVA) | payer MEDICARE, SELFPAY | PROVIDERS: PCP Family Medicine; Visit Provider Podiatrist Foot & Ankle Surgery | DX: M21.541 Acquired clubfoot, right foot (principal); M25.471 Effusion, right ankle; E11.9 Type 2 diabetes mellitus without complications; Z79.4 Long term (current) use of insulin | CPT/HCPCS: 99213 ==

== ENCOUNTER 2023-04-11 14:24 | Outpatient (CLI) | payer MEDICARE, SELFPAY ==
--- NOTE | 2023-04-11 14:27 | MM_ITS ---
WS: [id number] BILATERAL 3D TOMOSYNTHESIS DIGITAL SCREENING MAMMOGRAPHY WITH CAD CLINICAL INFORMATION: SCREENING HISTORY: Screening mammogram. No current complaints. COMPARISON: 2021 TECHNIQUE: Bilateral CC and MLO views. FINDINGS: Scattered fibroglandular densities bilaterally. No suspicious focal mass, asymmetry, calcifications, or architectural distortion. No evidence of malignancy. Punctate and lucent centered calcifications. Vascular calcifications. IMPRESSION: MM/[place] [id number] BI-RADS: 2-Benign FOLLOW UP: 1 Year Follow-up Recommend return to annual screening mammography.
== END 2023-04-11 14:25 | disposition home or self-care (01) ==
PROVIDERS: PCP Family Medicine; Visit Provider Family Medicine
DX: Z12.31 Encounter for screening mammogram for malignant neoplasm of breast (principal)
CPT/HCPCS: 77067

== ENCOUNTER 2023-05-30 10:27 | Outpatient (CLI) | payer MEDICARE, SELFPAY ==
--- NOTE | 2023-05-30 10:33 | CT_ITS ---
WS: [id number] CT chest wo con [id number] HISTORY: Abnormal findings. TECHNIQUE: Axial imaging performed through the thorax. Coronal and sagittal reformats are submitted. All CT scans at [facility] use at least one of these dose optimization techniques: automated exposure control; mA and/or kV adjustment per patient size (includes targeted exams where dose is mat ched to clinical indication); or iterative reconstruction. CONTRAST: None DLP: 459.51 mGy.cm COMPARISON: 06/03/2021, 10/14/2021 and 11/07/2022 Lungs and central airway: Lung volumes are decreased. Volume loss in the RIGHT thorax is similar to p rior studies. Scattered areas of ill-defined opacification. There is a lobulated pleural-based mass i n the medial RIGHT lower lobe which is similar to prior examinations dating back to 06/03/2021. Domina nt portion of the mass measures 3.5 x 2.9 cm. Most consistent with rounded atelectasis. There is also adjacent pleural thickening. Pleura: RIGHT pleural thickening. Heart and pericardium: Mild cardiomegaly. Shift of the mediastinal structures to the RIGHT due to vol ume loss in the RIGHT thorax. Mediastinum and myrtle: No mediastinum or hilar adenopathy. Vessels: Mild atherosclerosis aorta. Normal sized pulmonary artery. Moderate coronary artery calcific ations. Chest wall and lower neck: No soft tissue masses. Upper abdomen: Prior cholecystectomy. Normal adrenal glands. Osseous structures: No destructive process. IMPRESSION: 1. Long-term stability solid mass inferior medial RIGHT lower lobe abutting the pleura. Favor this is probably chronic rounded atelectasis with adjacent pleural thickening. Due to long-term stability si nce 06/03/2021 this is not likely malignant. 2. Mild volume loss in the RIGHT thorax. 3. Mild cardiomegaly and moderate coronary artery calcifications.
== END 2023-05-30 10:28 | disposition home or self-care (01) ==
LOC: RAD 10:28
PROVIDERS: PCP Family Medicine; Visit Provider Family Medicine
DX: R93.89 Abnormal findings on diagnostic imaging of other specified body structures (principal)
CPT/HCPCS: 71250

== ENCOUNTER 2023-11-17 12:06 | Emergency (ER) | payer MEDICARE, SELFPAY ==
[2023-11-17 12:18] VITALS: BP 199/81; PULSE 57; RESP 16; TEMP 36.6; O2SAT 98; BMI 33.2
[2023-11-17 12:36] VITALS: BP 187/64; PULSE 58
--- NOTE | 2023-11-17 12:45 | XR_ITS ---
WS: [id number] Portable AP supine chest, 11/17/2023 Clinical Data: shortness of breath Comparison: Portable chest, 08/28/2022 Findings: No nodules, masses or effusions are seen. The heart is normal. The pulmonary vascularity is not increased. No pneumonia or pneumothorax is seen. The aortic arch and descending thoracic aorta s how tortuosity. Monitor leads are on the chest wall. XR/XR chest 1V [id number] Impression: Atherosclerosis.
--- NOTE | 2023-11-17 12:45 | ECG_ITS ---
[facility] Test Date: 2023-11-17 Pat Name: Renetta Casey Department: Room: Gender: Female Station Operator: : 1955 Requested By: [address] Order Number: [id number] Harini MD: Donaldo Haddad M.D. Measurements Intervals [place] Rate: 60 P: 24 NE: 165 QRS: -1 QRSD: 84 T: 31 QT: 420 QTc: 420 Interpretive Statements SINUS RHYTHM Normal EKG Compared to ECG 08/28/2022 22:53:32 Sinus tachycardia no longer present Electronically Signed On 11-18-2023 12:41:30 CDT by Donaldo Haddad M.D. [id number]
--- NOTE | 2023-11-17 12:46 | W.ED.GENADLT ---
HPI - General Adult General: Chief complaint: General Medical Stated complaint: bp issues Time Seen by Provider: 11/17/23 12:40 History of Present Illness: 68-year-old female with a history of a stroke over 20 years ago who still has some right-sided weakness and aphasia, diabetes, hypothyroidism, chronic kidney disease, atrial fibrillation and hypertension who presents to the emergency room with issues with her blood pressure. She is also complaining of some pain in her left arm and when I ask her if she has pain in her chest she says yes. Otherwise she is unable to give history and her gives the rest of the history. reports her blood pressure has been very labile and quite high at times. He says systolics as high as 220. But then will be back to normal. He checks her blood pressure at least 4 times a day. He reports no fevers. No vomiting. She denies abdominal pain. She does not have any new lower extremity swelling. Review of Systems Narrative: Unable to obtain other review of systems other than through the . Secondary to patient's aphasia. [facility] ED PFSH: Medical History Acquired right foot drop Atrial fibrillation with RVR CKD (chronic kidney disease) stage 3, GFR 30-59 ml/min CVA (cerebral vascular accident) Diabetes mellitus Hyperkalemia Hyponatremia Hypothyroidism Leukocytosis Social History Smoking and tobacco/nicotine status: former use of tobacco/nicotine Physical Exam Narrative: EXAM NARRATIVE: General: Alert, no acute distress. Skin: Warm, dry. Head: Normocephalic, atraumatic. Neck: Supple, trachea midline. Eye: Extraocular movements are intact. Ears, nose, mouth and throat: mucosa moist. Cardiovascular: Regular, Normal peripheral perfusion. Respiratory: Lungs are clear to auscultation, respirations are non-labored, breath sounds are equal, Symmetrical chest wall expansion. Gastrointestinal: Soft, Nontender, Non distended, Normal bowel sounds. Musculoskeletal: Normal ROM, no deformity. Neurological: Patient is alert and appears oriented to her . She answers yes and no questions appropriately to me. She has some residual right-sided weakness. Aphasia.. Psychiatric: Cooperative Course Vital Signs: Vital signs: Vital Signs Temperature 98 F 11/17/23 12:18 Pulse Rate 57 L 11/17/23 15:06 Respiratory Rate 16 11/17/23 12:18 Blood Pressure 187/64 11/17/23 13:15 Pulse Oximetry 98 11/17/23 12:18 Oxygen Delivery Me thod Room Air 11/17/23 12:18 MDM - General Adult Medical Decision Making Medical decision making: Differential diagnosis including but not limited to and based on the above HPI, review of systems and physical exam: Patient presents with hypertension: Essential hypertension. Stroke. acute coronary syndrome. kidney failure. congestive heart failure. anxiety. Infection such as pneumonia and urinary tract infection Orders placed to evaluate differential diagnosis based on the above differential, HPI and physical exam these include an EKG to evaluate for any ischemic changes, chest x-ray to evaluate for cardiomegaly, and basic lab work including a troponin and a BMP look at renal function. EKG: Time 1251 rate 60. normal sinus rhythm, No ST-T changes, no ectopy, normal MN & QRS intervals, This was reviewed and interpreted by myself the ER physician at 1252 Chest x-ray: No acute process. No infiltrate. No pneumothorax. No cardiomegaly. This was reviewed and interpreted by myself the ER physician. Lab Review: Laboratory results were reviewed and interpreted by myself the emergency room physician. White count is 10. Hemoglobin is 15.6. Sodium is 132. Potassium is 6.6 on this but I believe this is an error. There was quite a bit of difficulty in drawing her blood and I believe this is hemolyzed. ABG shows a potassium around 5. BUN and creatinine are 32 and 1.5 which is the same as the last couple of time she had blood drawn. Her glucose is a bit high at 299. AB .40/41/71 with a potassium of 5.3. Had attempted to give IV fluids and IV antibiotics. However she was a very difficult stick and family preferred to try oral hydration and IM Rocephin here in the emergency room. I reviewed the patient's medical record. Reexamination: Patient remained stable. No increased work of breathing. No change in her mentation. She laughs frequently Assessment and plan: Hypertension Urinary tract infection Hyperglycemia -IM Rocephin - Discharged home - Discussed findings and plan with patient. Answered any questions. - All laboratory values were reviewed and interpreted personally by myself, the ER physician - All imaging was reviewed and interpreted personally by myself, the ER physician. - Evaluation and treatment of this problem were appropriate in the emergency setting . Lab Data 11/17/23 14:32 11/17/23 14:32 Radiology Impressions Chest X-Ray 11/17/23 12:45 Impression: Atherosclerosis. Laboratory Results WBC 10.34 10^3/uL (3.29-11.43) 11/17/23 14:32 RBC 5.02 10^6/uL (3.85-5.65) 11/17/23 14:32 Hgb 15.60 g/dL (11.27-16.99) 11/17/23 14:32 Hct 49.6 % (36-47) H 11/17/23 14:32 MCV 98.8 fl (85-98) H 11/17/23 14:32 MCH 31.1 pg (27-33) 11/17/23 14:32 MCHC 31.5 g/dL (30-55) 11/17/23 14:32 RDW 11.8 % (12.1-15.1) L 11/17/23 14:32 Plt Count 197 10^3/cmm (157-399) 11/17/23 14:32 MPV 11.2 fL (7.4-10.4) H 11/17/23 14:32 Neut % (Auto) 63.0 % 11/17/23 14:32 Lymph % (Auto) 23.2 % 11/17/23 14:32 [place] % (Auto) 11.4 % 11/17/23 14:32 Eos % (Auto) 1.0 % 11/17/23 14:32 Baso % (Auto) 0.8 % 11/17/23 14:32 Neut # (Auto) 6.52 10^3/uL (1.8-7.7) 11/17/23 14:32 Lymph # (Auto) 2.4 10^3/uL (0.8-4.8) 11/17/23 14:32 [place] # (Auto) 1.2 10^3/uL (0.2-0.9) H 11/17/23 14:32 Eos # (Auto) 0.1 10^3/uL (0.0-0.8) 11/17/23 14:32 Baso # (Auto) 0.1 10^3/uL (0.0-0.1) 11/17/23 14:32 Nucleated RBC % (auto) 0 % 11/17/23 14:32 Nucleated RBCs # 0.0 /100WBC 11/17/23 14:32 Specimen Type Arterial 11/17/23 15:44 Sample Site Brachial, left 11/17/23 15:44 ABG pH 7.40 (7.35-7.45) 11/17/23 15:44 ABG pCO2 41.3 mmHg (35-45) 11/17/23 15:44 ABG pO2 71.3 mmHg (80.0-100.0) L 11/17/23 15:44 ABG PO2/FiO2 Ratio 0 11/17/23 15:44 ABG HCO3 25.8 mmol/L (22-26) 11/17/23 15:44 ABG O2 Saturation 95.8 11/17/23 15:44 ABG Base Excess 0.9 mmol/L (-2.0-2.0) 11/17/23 15:44 John Test N/a 11/17/23 15:44 A-a O2 Gradient 3.4 mmHg (5-10) L 11/17/23 15:44 Hematocrit 44.8 % (37-47) 11/17/23 15:44 Hgb O2 Saturation 93.9 % (95-100) L 11/17/23 15:44 Carboxyhemoglobin 1.5 %THgb (0.4-20.1) 11/17/23 15:44 Methemoglobin 0.5 % (0.4-1.5) 11/17/23 15:44 Total Hemoglobin 14.6 g/dL (12-16) 11/17/23 15:44 Sodium 137.0 mmol/L (131-143) 11/17/23 15:44 Potassium 5.3 mmol/L (3.5-5.0) H 11/17/23 15:44 Glucose 259.0 mg/dL (70-115) H 11/17/23 15:44 Ionized Calcium 1.3 mmol/L (1.1-1.4) 11/17/23 15:44 O2 Delivery Device Room air 11/17/23 15:44 FiO2 21.0 % 11/17/23 15:44 Water Quality Specialist ID Amh 11/17/23 15:44 Sodium 132 mmol/L (136-145) L 11/17/23 14:32 Potassium 6.6 mmol/L (3.5-5.1) H* 11/17/23 14:32 Chloride 99 mmol/L (98-107) 11/17/23 14:32 Carbon Dioxide 20 mmol/L (22-29) L 11/17/23 14:32 Anion Gap 19.6 (5-19) H 11/17/23 14:32 BUN 32 mg/dL (8-23) H 11/17/23 14:32 Creatinine 1.5 mg/dL (0.5-0.9) H 11/17/23 14:32 GFR Calculation 34.7 mL/min (90-130) L 11/17/23 14:32 Glucose 299 mg/dL (65-115) H 11/17/23 14:32 Calculated Osmolality 292 mOsm/kg (285-295) 11/17/23 14:32 Lactic Acid 2.2 mmol/L (0.5-2.2) 11/17/23 14:32 Calcium 9.5 mg/dL (8.5-10.5) 11/17/23 14:32 Total Bilirubin 0.4 mg/dL (0.15-1.2) 11/17/23 14:32 AST 19 U/L (0-32) 11/17/23 14:32 ALT 9 U/L (0-33) 11/17/23 14:32 Alkaline Phosphatase 85 U/L (35-105) 11/17/23 14:32 Troponin T Baseline 17 ng/L (0-10) H 11/17/23 14:32 C-Reactive Protein 8.6 mg/L (0.0-4.9) H 11/17/23 14:32 NT-Pro-B Natriuret Pep 338 pg/mL (0-125) H 11/17/23 14:32 Total Protein 7.5 g/dL (6.6-8.7) 11/17/23 14:32 Albumin 3.7 g/dL (3.5-5.2) 11/17/23 14:32 Globulin 3.8 g/dL (1.3-4.6) 11/17/23 14:32 Urine Color Yellow (Yellow) 11/17/23 13:29 Urine Appearance Hazy (CLEAR) A 11/17/23 13:29 Urine pH 6 (5-7) 11/17/23 13:29 Ur Specific [place] 1.005 (1.005-1.030) 11/17/23 13:29 Urine Protein Neg (Negative) 11/17/23 13:29 Urine Glucose (UA) 4+ (Normal) H 11/17/23 13:29 Urine Ketones Negative (Negative) 11/17/23 13:29 Urine Blood 2+ (Negative) H 11/17/23 13:29 Urine Nitrate Negative (Negative) 11/17/23 13:29 Urine Bilirubin Neg (Negative) 11/17/23 13: Urine Urobilinogen Norm mg/dL (Negative) 11/17/23 13:29 Ur Leukocyte Esterase 2+ (Negative) H 11/17/23 13:29 Urine RBC 5-10 /hpf (0-2) H 11/17/23 13:29 Urine WBC >100 /hpf (0-5) H 11/17/23 13:29 Ur Squamous Epith Cells Rare /hpf (0-5) 11/17/23 13:29 Amorphous Sediment Not Reportable 11/17/23 13:29 Urine Bacteria 1+ /hpf (NONE) H 11/17/23 13:29 All radiology interpretation(s) finalized by discharge Discharge Plan Discharge Patient Disposition: Home Clinical Impression: Urinary tract infection, Hypertension, Hyperglycemia Condition: Stable Prescriptions: New cefdinir 300 mg capsule 300 mg PO BID 7 Days Qty: 14 0RF No Action (DME) night splint See Rx Instructions .Route .MEDSUPPLY Qty: 1 0RF Rx Instructions: As directed (DME) cam boot See Rx Instructions .Route .MEDSUPPLY Qty: 1 0RF Rx Instructions: As directed mupirocin 2 % ointment 1 applic topical BID Qty: 22 0RF trazodone 50 mg tablet 50 mg PO QPM venlafaxine 150 mg capsule,extended release 24hr 150 mg PO DAILY levothyroxine 150 mcg tablet 150 mcg PO DAILY insulin lispro [Humalog U-100 Insulin] 100 unit/mL solution See Rx Instructions .ROUTE .COMPLEX Rx Instructions: as directed sliding scale divalproex 250 mg tablet extended release 24 hr 250 mg PO DAILY insulin glargine [Lantus Solostar U-100 Insulin] 100 unit/mL (3 mL) insulin pen 34 - 40 unit SUBCUT QPM erythromycin 5 mg/gram (0.5 %) Ointment 1 applic OPHTHALMIC (EYE) DAILY Eliquis 5 mg Tablet 5 mg PO BID@0900,2100 Qty: 120 3RF atorvastatin 40 mg Tablet 20 mg PO BEDTIME Qty: 90 0RF metoprolol tartrate 25 mg Tablet 25 mg PO BID@0900,2100 Qty: 90 3RF Discharge Orders: Discharge ED (Routine); Ordered 11/17/23 Ordered By: Ave Torres Referrals: Nicole Ray MD [Primary Care Provider] - 4-7 days Discharge Diet: Usual diet Discharge Activity: Increase activity as tolerated Patient Instructions: Urinary Tract Infection in Women (DC), Urinary Tract Infection in Older Adults (ED) Activity Restrictions/Additional Instructions: Thank you for choosing [facility] for your healthcare needs today. Please realize this is an emergency room and that we are providing you with a medical screening exam and this may not be complete and all inclusive of all the testing and or work up that you may need to determine your ailment or severity of your illness. You have been screened and evaluated and felt safe for discharge. Health conditions do change or evolve sometimes and as such it is important that you follow up with your Primary Doctor to be re checked, 3-5 days is a general good time frame for follow up. You are always welcome to return to the ED for re assessment if your symptoms are worsening or you have new concerns Coding Level of Care Code ED Conference Coordinator for Ankit Slaughter
[2023-11-17 13:15] VITALS: BP 187/64; PULSE 59
[2023-11-17 13:52] LABS: Glucose Urine UA 4+ (Normal); Ketones Urine Negative (Negative); Protein Urine Neg (Negative); Specific Gravity, Urine 1.005 (1.005-1.030); Urine Appearance Hazy (CLEAR); Urine Color Yellow (Yellow); pH Urine 6 (5-7)
[2023-11-17 13:53] LABS: Bilirubin Urine Neg (Negative); Blood Urine 2+ (Negative); Leukocyte Esterase Urine 2+ (Negative); Nitrate Urine Negative (Negative); Urobilinogen Urine Norm (Negative)
[2023-11-17 13:59] LABS: Add Urine Culture? Yes; Bacteria Urine 1+ /hpf; Squamous Epithelial Cell Urine RARE /hpf (0-5); WBC Urine >100 /hpf (0-5)
[2023-11-17 14:48] LABS: Basophils # 0.1 10^3/uL (0.0-0.1); Basophils % 0.8 %; Eosinophils # 0.1 10^3/uL (0.0-0.8); Hematocrit 49.6 % (36-47); Lymphocytes # 2.4 10^3/uL (0.8-4.8); Lymphocytes % 23.2 %; Mean Corpuscular HGB Conc 31.5 g/dL (30-55); Mean Corpuscular Hemoglobin 31.1 pg (27-33); Mean Corpuscular Volume 98.8 fl (85-98); Mean Platelet Volume 11.2 fL (7.4-10.4); Monocytes # 1.2 10^3/uL (0.2-0.9); Monocytes % 11.4 %; Neutrophils # 6.52 10^3/uL (1.8-7.7); Nucleated Red Blood Cells % 0 %; Platelet Count 197 10^3/cmm (157-399); Red Blood Count 5.02 10^6/uL (3.85-5.65); Red Cell Distribution Width 11.8 % (12.1-15.1); White Blood Count 10.34 10^3/uL (3.29-11.43)
--- NOTE | 2023-11-17 14:51 | ECG_ITS ---
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 Measurements Intervals [place]ony Rate: 57 P: 15 CT: 158 QRS: -11 QRSD: 82 T: 21 QT: 431 QTc: 422 Interpretive Statements SINUS BRADYCARDIA Compared to ECG 11/17/2023 12:51:47 Sinus rhythm no longer present Electronically Signed On 11-18-2023 13:10:24 CDT by Carolyn Pompa M.D. [email or web address] Biosciencessinging river gulfportLearnBoostdayton va medical centerGood [id number]
[2023-11-17 15:05] LABS: Troponin(5th) Baseline 17 ng/L (0-10)
[2023-11-17 15:06] VITALS: PULSE 57
[2023-11-17 15:09] LABS: Lactic Sepsis W/Reflex 2.2 mmol/L (0.5-2.2)
[2023-11-17 15:18] LABS: Albumin Level 3.7 g/dL (3.5-5.2); Alkaline Phosphatase 85 U/L (35-105); Blood Urea Nitrogen 32 mg/dL (8-23); C Reactive Protein 8.6 mg/L (0.0-4.9); Calcium 9.5 mg/dL (8.5-10.5); Carbon Dioxide 20 mmol/L (22-29); Chloride 99 mmol/L (98-107); Globulin 3.8 g/dL (1.3-4.6); Glomerular Filtration Rate 34.7 mL/min (90-130); Glucose 299 mg/dL (65-115); NT Pro B Type Natriuretic Pept 338 pg/mL (0-125); Osmolality Calculated 292 mOsm/kg (285-295); Sodium 132 mmol/L (136-145); Total Bilirubin 0.4 mg/dL (0.15-1.2); Total Protein 7.5 g/dL (6.6-8.7)
[2023-11-17 15:24] LABS: Alanine Aminotransferase 9 U/L (0-33); Anion Gap 19.6 (5-19)
[2023-11-17 15:25] LABS: Aspartate Amino Transferase 19 U/L (0-32); Potassium 6.6 mmol/L (3.5-5.1)
[2023-11-17 15:55] LABS: ABG PCO2 41.3 mmHg (35-45); Alveolar-Arterial Oxygen Gradi 3.4 mmHg (5-10); Arterial Blood Gas Hematocrit 44.8 % (37-47); Base Excess ABG 0.9 mmol/L (-2.0-2.0); Blood Gas Operator Identificat AMH; Blood Gas Sample Site Brachial, left; Blood Gas Sample Type Arterial; Carboxyhemoglobin 1.5 %THgb (0.4-20.1); HCO3 ABG 25.8 mmol/L (22-26); HGB O2 Sat 93.9 % (95-100); Ionized Calcium Level - ABG 1.3 mmol/L (1.1-1.4); Methemoglobin 0.5 % (0.4-1.5); Oxygen Device ROOM AIR; Oxygen Saturation ABG 95.8; PO2 ABG 71.3 mmHg (80.0-100.0); PO2 FiO2 Ratio Arterial Blood 0; Potassium Level - ABG 5.3 mmol/L (3.5-5.0); Total Hemoglobin 14.6 g/dL (12-16)
[2023-11-17 16:29] LABS: Reflex Lactate Order REFLEX LACTIC ORDERD
--- NOTE | 2023-11-17 16:50 | PC.NURSE ---
AWARE OF POTASSIUM LEVEL - OKAY TO DC.
[2023-11-17 16:51] VITALS: BP 193/82; PULSE 59
[2023-11-17] MEDS: cefTRIAXone 1,000 MG in water for injection-sterile 2.1 ML 2.10000000000000009 MG IM (16:59)
[2023-11-17 17:10] VITALS: BP 193/82; PULSE 59; RESP 16; TEMP 36.6; O2SAT 98
== END 2023-11-17 17:12 | disposition home or self-care (01) ==
PROVIDERS: Emergency Provider Emergency Medicine; PCP Family Medicine
DX: N39.0 Urinary tract infection, site not specified (principal); I12.9 Hypertensive chronic kidney disease with stage 1 through stage 4 chronic kidney disease, or unspecified chronic kidney disease; E11.22 Type 2 diabetes mellitus with diabetic chronic kidney disease; E11.65 Type 2 diabetes mellitus with hyperglycemia; N18.30 Chronic kidney disease, stage 3 unspecified; Z79.4 Long term (current) use of insulin; E03.9 Hypothyroidism, unspecified; I48.20 Chronic atrial fibrillation, unspecified; Z79.01 Long term (current) use of anticoagulants; Z79.890 Hormone replacement therapy; Z79.899 Other long term (current) drug therapy; Z87.891 Personal history of nicotine dependence
CPT/HCPCS: 36415; 36600; 71045; 80051; 80053; 81001; 82330; 82805; 83605; 83880; 84484; 85025; 86140; 87040; 87077; 87086; 87186; 93005; 96372; 99285; J0696

== ENCOUNTER 2024-04-12 10:48 | Outpatient (CLI) | payer MEDICARE, SELFPAY ==
--- NOTE | 2024-04-12 12:33 | XR_ITS ---
WS: [id number] SCREENING DEXA SCAN nWay CLINICAL INFORMATION: ASYMPTOMATIC MENOPAUSAL STATE COMPARISON: 2014 FINDINGS: The L1-L4 bone mineral density measures 1.216 g/cm2. This corresponds to a T score score of 0.3 and Z score of 0.8. Left femoral neck bone mineral density measures 0.919 g/cm2. This corresponds to a T score of -0.7 an d Z score of -0.2. Right femoral neck bone mineral density measures 0.836 g/cm2. This corresponds to a T score -1.4of an d Z score of -0.9. Mean femoral neck bone mineral density measures 0.878 g/cm2. This corresponds to a T score of -1.0 an d Z score of -0.5. XR/XR DEXA axial skeleton* [id number] IMPRESSION: Normal bone mineralization lumbar spine. Osteopenia femoral necks. Patient's FRAX calculated 10 year probability for major osteoporotic fracture i s 10.3% and osteoporotic hip fracture is 1.5%. Bone mineral density lumbar spine decreased -5.4% Bone mineral density femoral necks decreased -2.8%
--- NOTE | 2024-04-12 12:33 | MM_ITS ---
WS: [id number] BILATERAL 3D TOMOSYNTHESIS DIGITAL SCREENING MAMMOGRAPHY WITH CAD CLINICAL INFORMATION: SCREENING HISTORY: Screening mammogram. No current complaints. COMPARISON: 2022 TECHNIQUE: Bilateral CC and MLO views. FINDINGS: Scattered fibroglandular densities bilaterally. No suspicious focal mass, asymmetry, calcifications, or architectural distortion. No evidence of malignancy. Coarse calcifications. Vascular calcification s. MM/MM scr tomosynthesis [id number] IMPRESSION: DENSITY: There are scattered areas of fibroglandular density. BI-RADS: 2 - Benign. FOLLOW UP: 1 Year Follow-up Recommend return to annual screening mammography.
== END 2024-04-12 10:49 | disposition home or self-care (01) ==
LOC: RAD 10:48
PROVIDERS: PCP Family Medicine; Visit Provider Family Medicine
DX: Z12.31 Encounter for screening mammogram for malignant neoplasm of breast (principal); Z13.820 Encounter for screening for osteoporosis; Z78.0 Asymptomatic menopausal state; R92.323 Mammographic fibroglandular density, bilateral breasts; R92.1 Mammographic calcification found on diagnostic imaging of breast; M85.80 Other specified disorders of bone density and structure, unspecified site
CPT/HCPCS: 77063; 77067; 77080

== ENCOUNTER 2025-01-18 09:25 | Inpatient (IN) | payer MEDICARE, SELFPAY ==
[2025-01-18] VITALS (7 sets, daily range): BP systolic 88–173; BP diastolic 61–100; PULSE 74–102; RESP 15–16; TEMP 36.4–36.9; O2SAT 93–99
--- OUTSIDE RECORDS SUMMARY | 2025-01-18 09:40 | XMS_ITS | Clinical Summary ---
Author Organization [employer] Address [address] [place]: Epic Prelude ADT [place] [address] Care Team Providers Care Field Marketing Manager Name Role Phone Nicole Ray MD Primary Care Provider [phone] Allergies No known active allergies Medications traZODone (DESYREL) 50 mg tablet Take 50 mg by mouth daily at bedtime May take 1 or 2 tablets at bedtime. . 9 Active venlafaxine (EFFEXOR XR) 150 mg Extended Release 24 hour capsule Take 150 mg by mouth daily. 9 Active insulin lispro (HumaLOG) 100 unit/mL vial Inject 30 Units by subcutaneous injection daily before supper. 9 Active insulin glargine (LANTUS) 100 unit/mL pen syringe Inject 58 Units by subcutaneous injection daily at bedtime May increase by 2 units every 3 days for blood sugars more than 150. . 9 Active divalproex (DEPAKOTE) 250 mg Delayed Release tablet Take 250 mg by mouth 2 times daily. 9 Active Insulin [place], Disposable, 32 gauge x 5/32 Needle 1 Each by [facility].(Non-Drug; Combo Route) route Use daily with insulin. . 9 Active atorvastatin (LIPITOR) 10 mg tablet Take 10 mg by mouth daily with supper. 9 Active apixaban (Eliquis) 5 mg tablet Take by mouth 2 times daily. Active metoprolol tartrate (LOPRESSOR) 25 mg tablet Take 25 mg by mouth 2 times daily. Active lisinopriL (PRINIVIL) 2.5 mg tablet Take 2.5 mg by mouth daily. Active travoprost (TRAVATAN Z) 0.004 % solution 1 Drop QPM. Active levothyroxine 50 mcg tablet Take 50 mcg by mouth daily in the morning. 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 Gender Identity Not on file Sexual Orientation Not on file Last Filed Vital Signs Vital Sign Reading Time Taken Comments Blood Pressure 133/51 10/14/2022 8:30 PM CDT Pulse 85 10/14/2022 8:30 PM CDT Temperature 36.4 C (97.6 F) 10/14/2022 5:45 PM CDT Respiratory Rate 18 10/14/2022 6:15 PM CDT Oxygen Saturation 100% 10/14/2022 8:30 PM CDT Inhaled Oxygen Concentration - - Weight 91.5 kg (201 lb 11.2 oz) 10/14/2022 5:45 PM CDT Height 170.2 cm (5' 7 ) 10/14/2022 5:45 PM CDT Body Mass Index 31.59 10/14/2022 5:45 PM CDT Plan of Treatment Health Maintenance Due Date Last Done Comments DIABETES ANNUAL FOOT EXAM 10/01/1975 DIABETES ANNUAL RETINAL EXAM 10/01/1975 DIABETES MICROALBUMIN ANNUAL SCREEN 10/01/1975 LDL CHOLESTEROL ANNUAL 10/01/1975 BREAST CANCER SCREENING 1997 FIT-DNA Q 3 years 2002 FIT/FOBT Q 1 year 2002 Flex Sig/CT Colonography Q 5 years 2002 DTAP/TDAP/TD VACCINES (2 - T d or Tdap) 04/25/2017 04/25/2007 RSV VACCINE (60+ or ) (1 - Risk 60-74 years 1-dose series) 2017 OSTEOPOROSIS SCREENING 2022 DIABETES HBA1C Q 6 MONTHS 10/30/2022 05/02/2022 PNEUMOCOCCAL VACCINE 50+ YEA RS (3 of 3 - PCV20 or PCV21) 04/23/2023 04/23/2018, 04/19/2016, 07/03/2000 COVID-19 Vaccine (6 - 2024-2 5 season) 2024 03/11/2022, 11/02/2021, 04/02/2021, Additional history exists INFLUENZA VACCINE (#1) 2025 , 04/03/2020, 04/29/2019, Additional history exists COLORECTAL SCREENING 10/19/2028 10/19/2018 Colorectal Cancer Screening 10/19/2028 ZOSTER VACCINE Completed 08/02/2021, 05/31/2021 Insurance [facility] [place] AD[place] [employer] ADV HMO [id number] [facility] Care Teams Field Marketing Manager Relationship Specialty Start Date End Date Nicole Ray MD [address] [place] [address] PCP - General Family Practice 08/10/18
--- OUTSIDE RECORDS SUMMARY | 2025-01-18 09:40 | XMS_ITS | Encounter Summary ---
Author Organization [facility], [facility] Address [address] [address] [place] [address] Phone Care Team Providers Care Clinical Account Manager Name Role Phone Nicole Ray MD Primary Care Provider + [phone] Encounter Details Date Type Department Care Team (Late st Contact Info) Description 04/28/2020 Orders Only [facility] [employer], [facility] [address] [facility] [address] [place] [address] Chronic kidney disease, stage 3b; Type 2 diabetes mellitus with diabetic chronic kidney disease (HCC) Social History Tobacco Use Types Packs/Day Years Used Date Smoking Tobacco: Never Assessed Comments Unknown Sex and Gender Information Value Date Recorded Sex Assigned at Not on file Legal Sex Female 11:32 AM EDT Gender Identity Not on file Sexual Orientation Not on file documented as of this encounter Plan of Treatment Upcoming Encounters Date Type Department Care Team (Late st Contact Info) Description 09/09/2025 1:00 PM CDT [facility] [employer], [facility] [address] [place] [address] Patsy Martin NP [address] [facility] [address] [place] [address] documented as of this encounter Visit Diagnoses Diagnosis Chronic kidney disease, stage 3b Type 2 diabetes mellitus with diabetic chronic kidney disease (HCC) documented in this encounter Care Teams Clinical Account Manager Relationship Specialty Start Date End Date Nicole Ray MD [address] [place] [address] PCP - General Family Medicine 04/28/20 documented as of this encounter
--- OUTSIDE RECORDS SUMMARY | 2025-01-18 09:40 | XMS_ITS ---
Author Organization [facility] Care Team Providers Care Gas Plant Technician Name Role Phone Olivia Ly Unavailable Unavailable Enrique Ray Unavailable Unavailable Latricia Escobar Unavailable Unavailable Nicole Ray Unavailable Unavailable Marquise Perez Unavailable Unavailable Allergies and adverse reactions No Known Allergies Care Team Name Role Address Phone Organization Dates Nicole Ray [facility] [address] [place], [address], [place] (Office): : [facility] 09/01/2022 - 09/21/2022 Olivia Ly [address], [address], [place] (Office): [facility] 09/01/2022 - 09/21/2022 Enrique Ray [address] [facility], [address], [place] (Office): : [facility] 09/01/2022 - 09/21/2022 Latricia Escobar [address], [place], [address], [place] (Office): : [facility] 09/01/2022 - 09/21/2022 Marquise Perez [address], [place], [address], [place] (Office): : [facility] 09/01/2022 - 09/21/2022 Immunizations Immunization Status Vaccine Details Vaccine Code CodeSystem Date Notes Influenza completed Influenza, high-dose, split virus, quadrivalent, injectable, preservative free 197 CVX created date: 09/05/2022 administere d date: 04/02/2022 TB 2 Step Mantoux Skin Test completed tuberculin skin test; unspecified formulation lotNumber: [id number] expiry: 11/01/2023 Mfg: Aplisol Given 0.1 ml Left Forearm subcutaneously Step 2 of Multi-step with next step required 98 CVX created date: 09/12/2022 consent date: 09/12/2022 administere d date: 09/12/2022 TB 2 Step Mantoux Skin Test completed tuberculin skin test; unspecified formulation lotNumber: [id number] expiry: 11/01/2023 Mfg: Aplisol Given 0.1 ml Left Forearm subcutaneously Step 1 of Multi-step with next step required 98 CVX created date: 09/02/2022 consent date: 09/02/2022 administere d date: 09/02/2022 SARS-COV-2 (COVID-19) completed SARS-COV-2 (COVID-19) vaccine, mRNA, spike protein, LNP, preservative free, 30 mcg/0.3mL dose Mfg: Pfizer booster Step 1 of Multi-step with next step required 208 CVX created date: 09/02/2022 administere d date: 04/02/2021 SARS-COV-2 (COVID-19) completed SARS-COV-2 (COVID-19) vaccine, mRNA, spike protein, LNP, preservative free, 30 mcg/0.3mL dose Mfg: [employer] Step 2 of Multi-step with next step required 208 CVX created date: 09/02/2022 administere d date: 08/30/2020 SARS-COV-2 (COVID-19) completed SARS-COV-2 (COVID-19) vaccine, mRNA, spike protein, LNP, preservative free, 30 mcg/0.3mL dose Mfg: [employer] Step 1 of Multi-step with next step required 208 CVX created date: 09/02/2022 administere d date: 07/31/2020 SARS - COV2 (Moderna) Booster completed SARS-COV-2 (COVID-19) vaccine, mRNA, spike protein, LNP, preservative free, 100 mcg/0.5mL dose or 50 mcg/0.25mL dose Mfg: [employer] booster 207 CVX created date: 09/02/2022 administere d date: 03/11/2022 SARS - COV2 (Moderna) Booster completed SARS-COV-2 (COVID-19) vaccine, mRNA, spike protein, LNP, preservative free, 100 mcg/0.5mL dose or 50 mcg/0.25mL dose Mfg: [employer] booster 207 CVX created date: 09/02/2022 administere d date: 11/02/2021 Mental Status Section Date Assessment Total Score Description 09/21/2022 BIMS 09 moderate cognit rachell impairment CAM 0 No delirium ind icated PHQ-9 00 09/07/2022 BIMS 07 severe cognitiv e impairment CAM 0 No delirium ind icated PHQ-9 06 mild depression Problems Problem # Description Date of onset Resolved Date Code CodeSystem Concern Status 1 CANDIDIASIS, UNSPECIFIED 09/07/[address] active 2 MIGRAINE, UNSPECIFIED, NOT INTRACTABLE, WITHOUT STATUS MIGRAINOSUS 09/05/[address] active 3 DYSPHAGIA, OROPHARYNGEAL PHASE 09/04/[address] active 4 DISPLACED AVULSION FRACTURE (CHIP FRACTURE) OF RIGHT TALUS, SUBSEQUENT ENCOUNTER FOR FRACTURE WITH ROUTINE HEALING 09/02/[address] active 5 TYPE 2 DIABETES MELLITUS WITHOUT COMPLICATIONS 09/02/[address] active 6 APHASIA FOLLOWING CEREBRAL INFARCTION 09/01/[address] active 7 CEREBRAL INFARCTION, UNSPECIFIED 09/01/[address] active 8 CHRONIC KIDNEY DISEASE, STAGE 3 UNSPECIFIED 09/01/[address] active 9 DEPRESSION, UNSPECIFIED 09/01/[address] active 10 DIABETES MELLITUS DUE TO UNDERLYING CONDITION WITH HYPERGLYCEMIA 09/01/2022 09/04/[address] completed 11 ELEVATED WHITE BLOOD CELL COUNT, UNSPECIFIED 09/01/[address] active 12 ESSENTIAL (PRIMARY) HYPERTENSION 09/01/[address] active 13 FOOT DROP, RIGHT FOOT 09/01/[address] active 14 HYPERKALEMIA 09/01/[address] activ e 15 HYPERLIPIDEMIA, UNSPECIFIED 09/01/[address] active 16 HYPOKALEMIA 09/01/[address] active 17 OTHER INSOMNIA 09/01/[address] ac tive 18 OTHER SEIZURES 09/01/2022 09/01/[address] completed 19 OTHER SPECIFIED HYPOTHYROIDISM 09/01/[address] active 20 PNEUMONIA, UNSPECIFIED ORGANISM 09/01/[address] active 21 PNEUMONITIS DUE TO INHALATION OF FOOD AND VOMIT 09/01/[address] active 22 PRESSURE ULCER OF RIGHT ANKLE, UNSTAGEABLE 09/01/[address] active 23 RASH AND OTHER NONSPECIFIC SKIN ERUPTION 09/01/[address] active 24 UNSPECIFIED ATRIAL FIBRILLATION 09/01/[address] active Reason for Referral No Reasons for Referral Entered Social History Social History Observation Description Start Date End Date Code Code System Current Smoking Status Tobacco smoking consumption unknown 520813095 SNOMED CT Sex Assigned At Female 1955 94035-1 [facility] Gender Identity Vital Signs Code Code System Vitals Name Values and Units Timing Information 9279-1 [facility] Respiratory Rate Value=18.0 Units=/m in 09/21/2022 8462-4 [facility] Blood Pressure-Diastolic Value=66 Un its=mmHg 09/21/2022 8480-6 [facility] Blood Pressure-Systolic Urviu=686 Un its=mmHg 09/21/2022 8310-5 [facility] Body Temperature Value=98.0 Units= F 09/21/2022 8867-4 [facility] Heart rate Value=79.0 Units=/min 79511-7 [facility] O2 % BldC Oximetry Value=93.0 Units= % 09/21/2022 2339-0 [facility] Blood Sugar Xiiay=831.0 Units=mg/dL 09/21/2022 56969-6 [facility] Weight Nonki=319.0 Units=Lbs 04/2023 8302-2 [facility] Height Value=68.0 Units=Inches 09/05/2022
--- OUTSIDE RECORDS SUMMARY | 2025-01-18 09:40 | XMS_ITS | Clinical Summary ---
Author Organization [facility] Address [address] [facility] [address] [place] [address] Phone Care Team Providers Care Insulating Machine Operator Name Role Phone Nicole Ray MD Primary Care Provider [phone] Allergies No known active allergies Medications insulin lispro (HumaLOG) 100 unit/mL vial Inject 10 Units by subcutaneous injection daily before lunch. Active insulin lispro (HumaLOG) 100 unit/mL vial Inject 30 Units by subcutaneous injection daily before supper. Active insulin glargine (LANTUS) 100 unit/mL pen syringe Inject 58 Units by subcutaneous injection daily at bedtime May increase by 2 units every 3 days for blood sugars more than 150. . Active venlafaxine (EFFEXOR XR) 150 mg Extended Release 24 hour capsule Take 150 mg by mouth daily. Active atorvastatin (LIPITOR) 10 mg tablet Take 10 mg by mouth daily with supper. Active oxybutynin chloride (DITROPAN) 5 mg tablet Take 5 mg by mouth 2 times daily. Active divalproex (DEPAKOTE) 250 mg Delayed Release tablet Take 250 mg by mouth 2 times daily. Active traZODone (DESYREL) 50 mg tablet Take 50 mg by mouth daily at bedtime May take 1 or 2 tablets at bedtime. . Active Insulin [place], Disposable, (SURE COMFORT PEN NEEDLE) 32 gauge x 5/32 Needle 1 Each by [facility].(Non-Drug; Combo Route) route Use daily with insulin. . Active aspirin (FELIX) 325 mg tablet Take 325 mg by mouth daily. Active calcium as carbonate (OS-NEL) 1,250 mg (500 mg elemental) tablet Take 1 Tablet by mouth daily. Active folic acid-vit B6-vit B12 (BRADLEYFOLTX) 2.5-25-1 mg Tablet Take 1 Tablet by mouth daily. Active diclofenac sodium (VOLTAREN) 75 mg Tablet, Delayed Release (E.C.) Take 1 Tablet (75 mg) by mouth 2 times daily. 20 Tablet 9 Active Social History Tobacco Use Types Packs/Day Years Used Date Smoking Tobacco: Former Smokeless Tobacco: Never Alcohol Use Standard Drinks/Week Comments No 0 (1 standard drink = 0.6 oz pur e alcohol) Comments Unknown Sex and Gender Information Value Date Recorded Sex Assigned at Not on file Legal Sex Female 5:10 PM STEAM HOIST OPERATOR Gender Identity Not on file Sexual Orientation Not on file Last Filed Vital Signs Vital Sign Reading Time Taken Comments Blood Pressure 154/67 08/10/2018 6:26 PM STEAM HOIST OPERATOR Pulse 72 08/10/2018 5:19 PM STEAM HOIST OPERATOR Temperature 36.6 C (97.8 F) 08/10/2018 5:19 PM STEAM HOIST OPERATOR Respiratory Rate 16 08/10/2018 6:26 PM STEAM HOIST OPERATOR Oxygen Saturation 100% 08/10/2018 6:26 PM STEAM HOIST OPERATOR Inhaled Oxygen Concentration - - Weight 99 kg (218 lb 3.2 oz) 08/10/2018 5:19 PM STEAM HOIST OPERATOR Height 170.2 cm (5' 7 ) 08/10/2018 5:19 PM STEAM HOIST OPERATOR Body Mass Index 34.17 08/10/2018 5:19 PM STEAM HOIST OPERATOR Plan of Treatment Health Maintenance Due Date Last Done Comments DIABETES ANNUAL FOOT EXAM 10/01/1975 DIABETES ANNUAL RETINAL EXAM 10/01/1975 DIABETES MICROALBUMIN ANNUAL SCREEN 10/01/1975 LDL CHOLESTEROL ANNUAL 10/01/1975 DTAP/TDAP/TD VACCINES (1 - Tdap) 1976 PNEUMOCOCCAL VACCINE 50+ YEARS (1 of 2 - PCV) 09/30/18 77 BREAST CANCER SCREENING 1997 FIT-DNA Q 3 years 2002 FIT/FOBT Q 1 year 2002 Flex Sig/CT Colonography Q 5 years 2002 ZOSTER VACCINE (1 of 2) 10/01/2007 RSV VACCINE (60+ or ) (1 - Risk 60-74 years 1-dose series) 2017 DIABETES HBA1C Q 6 MONTHS 04/28/2021 10/27/2020 OSTEOPOROSIS SCREENING 2022 INFLUENZA VACCINE (#1) 2025 COLORECTAL SCREENING 10/19/2028 10/19/2018 Colorectal Cancer Screening 10/19/2028 Insurance BC MCR Care Teams Insulating Machine Operator Relationship Specialty Start Date End Date Nicole Ray MD [address] [place] [address] PCP - General Family Practice 08/10/18
--- OUTSIDE RECORDS SUMMARY | 2025-01-18 09:40 | XMS_ITS | Encounter Summary ---
Author Organization [facility], [facility] Address [address] [address] [address] [address] [place] [address] Phone Care Team Providers Care Medical Practice Administrator Name Role Phone Nicole Ray MD Primary Care Provider + [phone] Reason for Visit * Reason Comments Med Refill Encounter Details Date Type Department Care Team (Late st Contact Info) Description 07/19/2021 Refill [facility], [address] [address] William Stubbs MD Social History Tobacco Use Types Packs/Day Years Used Date Smoking Tobacco: Former Cigarettes Smokeless Tobacco: Never Alcohol Use Standard Drinks/Week Comments Not Currently 0 (1 standard drink = 0.6 oz [...] Description 09/09/2025 1:00 PM CDT Office Visit [facility], [facility] [place] [address] Patsy Martin DINING ROOM HOST/HOSTESS [address] [facility] [address] [place] [address] documented as of this encounter Visit Diagnoses Not on filedocumented in this encounter Care Teams Medical Practice Administrator Relationship Specialty Start Date End Date Nicole Ray MD [address] [place] [address] PCP - General Family Medicine 04/28/20 documented as of this encounter
--- OUTSIDE RECORDS SUMMARY | 2025-01-18 09:40 | XMS_ITS | Clinical Summary ---
Author Organization [facility], [facility] Address [address] [place] [address] Phone Care Team Providers Care Immigration Services Officer Name Role Phone Nicole Ray MD Primary Care Provider [phone] Allergies No known active allergies Medications atorvastatin (LIPITOR) 10 MG tablet Take 20 mg by mouth Active venlafaxine XR (EFFEXOR-XR) 150 MG 24 hr capsule Take 150 mg by mouth daily Active traZODone (DESYREL) 50 MG tablet Take 50 mg by mouth every night Active insulin lispro (HumaLOG) 100 UNIT/ML injection Inject 40 Units under the skin in the morning and 40 Units in the evening. Inject with meals. Sliding scale 10 qam and 30 qhs. Active insulin glargine (LANTUS) 100 UNIT/ML injection Inject 44 Units under the skin Active latanoprost (XALATAN) 0.005 % ophthalmic solution Administer 1 drop into the left eye every night Active levothyroxine (SYNTHROID, LEVOTHROID) 150 MCG tablet Take 150 mcg by mouth 1 (one) time each day Active apixaban (ELIQUIS) 5 MG tablet Take 5 mg by mouth in the morning and 5 mg in the evening. Active metoprolol tartrate 25 MG tablet Take 25 mg by mouth Active divalproex (DEPAKOTE) 250 MG 24 hr tablet Take 250 mg by mouth in the morning and 250 mg in the evening. Do not crush, chew, or split.. Active Active Problems Problem Noted Date Diagnosed Date Chronic diarrhea 09/20/2022 CT of chest abnormal 09/20/2022 Ex-smoker 09/20/2022 Diverticular disease 09/20/2022 Stage 3b chronic kidney disease 09/02/2020 Essential (primary) hypertension 09/02/2020 Type 2 diabetes mellitus wit h other diabetic kidney complication 09/02/2020 Aphasia as late effect of cerebrovascular accide nt 08/07/2014 Disorder of peripheral nervous system 12/29/2011 Cerebrovascular accident 01/06/2009 Hypothyroidism 11/28/2007 Hypercholesterolemia 10/18/2006 Family History Medical History Relation Comments Diabetes Father Relation Status Comments Father Mother Social History Tobacco Use Types Packs/Day Years Used Date Smoking Tobacco: Former Cigarettes Smokeless Tobacco: Never Tobacco Cessation:Counseling Given: Not Answered Alcohol Use Standard Drinks/Week Comments Not Currently 0 (1 standard drink = 0.6 oz pur e alcohol) Comments Unknown Sex and Gender Information Value Date Recorded Sex Assigned at Not on file Legal Sex Female 11:32 AM EDT Gender Identity Not on file Sexual Orientation Not on file Last Filed Vital Signs Vital Sign Reading Time Taken Comments Blood Pressure 122/72 09/09/2024 9:17 AM CDT Pulse 61 09/09/2024 9:17 AM CDT Temperature 36.5 C (97.7 F) 09/02/2020 10:36 AM ENGINEERING COORDINATOR Respiratory Rate - - Oxygen Saturation 96% 09/09/2024 9:1 7 AM CDT Inhaled Oxygen Concentration - - Weight 95.3 kg (210 lb) 09/09/2024 9:17 AM CDT pt couldn't get on scale today this is from PCP 2 months ago Height 170.2 cm (5' 7 ) 09/09/2024 9:17 AM CDT Body Mass Index 32.89 09/09/2024 9:17 AM CDT Plan of Treatment Upcoming Encounters Date Type Department Care Team (Late st Contact Info) Description 09/09/2025 1:00 PM CDT Office Visit [facility] [address] [place] [address] Patsy Martin NP [address] [facility] [address] [place] [address] Health Maintenance Due Date Last Done Comments Breast Cancer Screening 1955 Colorectal Cancer Screening: Annual FOBT 2006 Colorectal Cancer Screening: Colonoscopy 2006 Colorectal Cancer Screening: Sigmoidoscopy 2006 Diabetes: Ophthalmology Exam 04/28/2020 Diabetes: Pedal Pulse Checked 04/28/2020 Diabetes: Sensory Foot Exam 04/28/2020 Diabetes: Visual Foot Exam 04/28/2020 Diabetes: Hemoglobin A1C 07/22/2020 020, 04/01/2019 Pneumococcal Vaccine: 50+ Years (4 of 4 - PCV20 or PCV21) 04/23/2023 04/23/2018, 04/19/2016, 07/03/2000 Influenza Vaccine (#1) 2025 Pneumococcal Vaccine: Peds ( 0 to 5 Years) and At-Risk Patients (6 to 49 Years) Discontinued 04/23/2018, 04/19/2016, 07/03/2000 Hepatitis B Vaccine Aged Out No longe r eligible based on patient's age to complete this topic Procedures Procedure Name Priority Date/Time Associated Diagnosis Comments HEMOGLOBIN A1C (EXTERNAL RESULT ENTRY) Routine 04/21/2020 from Last 3 Months or Most Recently Relevant to Health Maintenance Results * Hemoglobin A1C (04/21/2020) Hemoglobin A1C 6.8 Blood specimen (specimen) Venous blood / Unknown 04/21/2020 [facility] External Provider LAB BLOOD ORDERABLES Final Result from Last 3 Months or Most Recently Relevant to Health Maintenance Insurance [facility] MCR Adv ([id number]) Care Teams Immigration Services Officer Relationship Specialty Start Date End Date Nicloe Ray MD [address] [place] [address] PCP - General Family Medicine 04/28/20
--- NOTE | 2025-01-18 09:41 | CTR_ITS ---
PROCEDURE INFORMATION: Exam: CT Head Without Contrast Exam date and time: 01/18/2025 10:22 AM Age: 69 years old Clinical indication: Altered mental status/memory loss; Confusion or disorientation; Additional info: AMS TECHNIQUE: Imaging protocol: Computed tomography of the head without contrast. Radiation optimization: All CT scans at this facility use at least one of these dose optimization techniques: automated exposure control; mA and/or kV adjustment per patient size (includes targeted exams where dose is matched to clinical indication); or iterative reconstruction. COMPARISON: CT head wo con* [id number] 08/28/2022 10:34 PM RADIATION DOSE METRICS: Total DLP (mGy-cm): 1159.82 FINDINGS: Brain: There is left frontal lobe/basal ganglia gliosis and encephalomalacia again identified. There is no evidence of acute parenchymal hemorrhage, extra-axial collection, or acute infarction. There is no mass effect, midline shift, or downward herniation. Cerebral ventricles: There is stable ventriculomegaly. Paranasal sinuses: Visualized sinuses are unremarkable. No fluid levels. Mastoid air cells: Visualized mastoid air cells are well aerated. Bones: Unremarkable. No acute fracture. Soft tissues: Unremarkable. CT/CT head wo con* [id number] IMPRESSION: 1. No evidence of acute intracranial process. 2. 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 3. Stable ventriculomegaly.
--- NOTE | 2025-01-18 09:49 | ED_ITS ---
HPI - Weakness 2 General: Chief complaint: Weakness Stated complaint: lethargic Time Seen by Provider: 01/18/25 09:40 History of Present Illness: 72-year-old female presents emergency ro om planing weakness worse than her baseline over the last several days. She previously had a pretty severe right sided stroke and has significant deficits with hemiparesis hemianopsia. No fever sweats or chills. Family states she has not been as verbal as usual. No vomiting no diarrhea. Associated symptoms: Denies chest pain, chills, dysuria or fever(s) Related Data Home Medications ?Medication ?Instructions ?Recorded ?Confirmed divalproex 250 mg tablet,extended 250 mg PO DAILY 08/0401/18/25 release 24 hr insulin glargine 100 unit/mL (3 34 - 40 unit SUBCUT QP M 08/29/22 01/18/25 mL) subcutaneous pen (Lantus Solostar U-100 Insulin) insulin lispro 100 unit/mL See Rx Instructions .Route .COMPLEX 08/29/22 01/18/25 subcutaneous solution (Humalog U-100 Insulin) levothyroxine 150 mcg tablet 150 mcg PO DAILY 08/29/22 01/18/25 trazodone 50 mg tablet 50 mg PO QPM 08/29/22 venlafaxine 150 mg 150 mg PO DAILY 08/29/22 capsule,extended release 24 hr Previous Rx's ?Medication ?Instructions ?Recorded night splint #1 ea 07/22/22 cam boot #1 ea 08/26/22 apixaban 5 mg tablet (Eliquis) 5 mg PO BID@0900,2100 # 120 tabs 08/31/22 atorvastatin 40 mg tablet 20 mg (1/2 x 40 mg) PO BEDTI ME #90 08/31/22 tabs metoprolol tartrate 25 mg tablet 25 mg PO BID@0900,210 0 #90 tabs 08/31/22 Allergies Allergy/AdvReac Type Severity Reaction Status Date / Time No Known Allergies Allergy Verified 01/18/25 09:38 Review of Systems 2 Const: Denies: fever(s) or chills Card: Denies: chest pain Resp: Denies: dyspnea GI: Denies: abdominal pain : Denies: dysuria, urinary frequency or urinary urgency Musc: Denies: neck pain or back pain Skin/Breast: Denies: rash PFSH ED 2 PFSH: Medical History Diabetes mellitus Hypothyroidism CVA (cerebral vascular accident) Leukocytosis CKD (chronic kidney disease) stage 3, GFR 30-59 ml/min Hyponatremia Atrial fibrillation with RVR Hyperkalemia Acquired right foot drop Social History Smoking and tobacco/nicotine status: former use of tobacco/nicotine Physical Exam 2 Const: GENERAL APPEARANCE: cooperative ORIENTATION/CONSCIOUSNESS: Yes awake HENMT: COMMON NORMALS: normocephalic, atraumatic and hearing grossly normal bilaterally HEAD & SCALP: normocephalic and atraumatic Eye: OTHER: Right-sided visual field loss Resp: COMMON NORMALS: normal respiratory effort, No retractions, No use of accessory muscles and clear to auscultation bilaterally AUSCULTATION: clear to auscultation bilaterally Cardio: COMMON NORMALS: regular rate, regular rhythm and No murmurs present (Cardio) RATE: regular rate RHYTHM: regular rhythm GI: COMMON NORMALS: Soft to palpation and No hepatosplenomegaly present A USCULTATION: Yes normoactive bowel sounds PALPATION: Yes Soft to palpation, No Tenderness to palpation present (GI), No Guarding due to palpation present (GI) and Yes No hepatosplenomegaly present Extremity: COMMON NORMALS: capillary refill normal, no clubbing, cyanosis or edema, no calf tenderness and no pedal edema OTHER: Contracture of the right leg and right arm from previous stroke Neuro: OTHER: The patient has persistent weakness in the right side from previous stroke no weakness on the left side at this time no left-sided facial weakness she is nonverbal. She has been getting the left arm and leg at this time. They are somewhat weak compared to the baseline according to the family. Skin: COMMON NORMALS: no rashes or lesions noted GENERAL SKIN EXAM: no rashes or lesions noted Course 2 Vital Signs: Vital signs: Vital Signs Temperature 97.6 F 01/18/25 09:33 Pulse Rate 76 01/18/25 14:33 Respiratory Rate 16 01/18/25 09:33 Blood Pressure 162/80 01/18/25 14:33 Pulse Oximetry 96 01/18/25 14:33 Oxygen Delivery Me thod Room Air 01/18/25 14:33 MDM - Weakness Medical Decision Making Patient has had symptoms on and off for several weeks worse today but improving again she is on Eliquis she is not a candidate for TNKase and she is not a candidate for embolectomy at this point. Think some of this may be recrudescence of her previous stroke. It is possible that she is having TIAs but she has been having this for quite some time now it is difficult to kneel down completely. She may benefit from an MRI CT of her head does not show any acute bleed. No signs of acute infection at this time. She does have some mild swelling in the legs her oxygen sats are normal Place patient ovation. She is currently on Eliquis may benefit from the addition of Plavix or aspirin. Discussed with hospitalist orders written Medical Records I reviewed the patient's medical records. Lab Data I reviewed the patient's lab results. 01/18/25 09:50 01/18/25 09:[address] 01/18/25 09:41 IMPRESSION: 1. No evidence of acute intracranial process. 2. 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 3. Stable ventriculomegaly. Laboratory Results WBC 12.02 10^3/uL (3.29-11.43) H 01/18/25 09:50 RBC 5.59 10^6/uL (3.85-5.65) 01/18/25 09:50 Hgb 16.70 g/dL (11.27-16.99) 01/18/25 09:50 Hct 50.4 % (36-47) H 01/18/25 09:50 MCV 90.2 fl (85-98) 01/18/25 09:50 MCH 29.9 pg (27-33) 01/18/25 09:50 MCHC 33.1 g/dL (30-55) 01/18/25 09:50 RDW 13.9 % (12.1-15.1) 01/18/25 09:50 Plt Count 255 10^3/cmm (157-399) 01/18/25 09:50 MPV 11.1 fL (7.4-10.4) H 01/18/25 09:50 Neut % (Auto) 65.2 % 01/18/25 09:50 Lymph % (Auto) 19.4 % 01/18/25 09:50 [place] % (Auto) 13.3 % 01/18/25 09:50 Eos % (Auto) 0.6 % 01/18/25 09:50 Baso % (Auto) 0.6 % 01/18/25 09:50 Neut # (Auto) 7.84 10^3/uL (1.8-7.7) H 01/18/25 09:50 Lymph # (Auto) 2.3 10^3/uL (0.8-4.8) 01/18/25 09:50 [place] # (Auto) 1.6 10^3/uL (0.2-0.9) H 01/18/25 09:50 Eos # (Auto) 0.1 10^3/uL (0.0-0.8) 01/18/25 09:50 Baso # (Auto) 0.1 10^3/uL (0.0-0.1) 01/18/25 09:50 Nucleated RBC % (auto) 0 % 01/18/25 09:50 Nucleated RBCs # 0.0 /100WBC 01/18/25 09:50 Sodium 129 mmol/L (136-145) L 01/18/25 09:50 Potassium 4.3 mmol/L (3.5-5.1) 01/18/25 09:50 Chloride 91 mmol/L (98-107) L 01/18/25 09:50 Carbon Dioxide 24 mmol/L (22-29) 01/18/25 09:50 Anion Gap 18.3 (5-19) 01/18/25 09:50 BUN 14 mg/dL (8-23) 01/18/25 09:50 Creatinine 0.9 mg/dL (0.5-0.9) 01/18/25 09:50 GFR Calculation 62.5 mL/min (90-130) L 01/18/25 09:50 Glucose 181 mg/dL (65-115) H 01/18/25 09:50 Calculated Osmolality 273 mOsm/kg (285-295) L 01/18/25 09:50 Lactic Acid 2.1 mmol/L (0.5-2.2) 01/18/25 09:50 Calcium 9.7 mg/dL (8.5-10.5) 01/18/25 09:50 Total Bilirubin 0.9 mg/dL (0.15-1.2) 01/18/25 09:50 AST 28 U/L (0-32) 01/18/25 09:50 ALT 9 U/L (0-33) 01/18/25 09:50 Alkaline Phosphatase 79 U/L (35-105) 01/18/25 09:50 NT-Pro-B Natriuret Pep 3483 pg/mL (0-125) H 01/18/25 09:50 Total Protein 7.8 g/dL (6.6-8.7) 01/18/25 09:50 Albumin 3.1 g/dL (3.5-5.2) L 01/18/25 09:50 Globulin 4.7 g/dL (1.3-4.6) H 01/18/25 09:50 Procalcitonin 0.31 ng/mL (0-0.5) 01/18/25 09:50 Urine Color [place] (Yellow) A 01/18/25 10:53 Urine Appearance Clear (CLEAR) 01/18/25 10:53 Urine pH 6.0 (5-7) 01/18/25 10:53 Ur Specific [place] 1.027 (1.005-1.030) 01/18/25 10:53 Urine Protein 1+ (Negative) A 01/18/25 10:53 Urine Glucose (UA) 2+ (Normal) H 01/18/25 10:53 Urine Ketones 1+ (Negative) H 01/18/25 10:53 Urine Blood Negative (Negative) 01/18/25 10:53 Urine Nitrate Negative (Negative) 01/18/25 10:53 Urine Bilirubin 1+ (Negative) H 01/18/25 10:53 Urine Urobilinogen 1.0 mg/dL (Negative) 01/18/25 10:53 Ur Leukocyte Esterase Negative (Negative) 01/18/25 10:53 Urine RBC 0-2 /hpf (0-2) 01/18/25 10:53 Urine WBC 0-5 /hpf (0-5) 01/18/25 10:53 Ur Squamous Epith Cells 0-5 /hpf (0-5) 01/18/25 10:53 Amorphous Sediment Not Reportable 01/18/25 10:53 Urine Bacteria None seen /hpf (NONE) 01/18/25 10:53 Hyaline Casts 6.61 /lpf 01/18/25 10:53 Serum Ketones Negative (Negative) 01/18/25 09:50 All radiology interpretation(s) finalized by discharge Discharge Plan Discharge Patient Disposition: Placed in Observation Admit Provider: Juan Maldonado Clinical Impression: Altered mental status, Hyponatremia Coding Level 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
[2025-01-18 10:02] LABS: Hematocrit 50.4 % (36-47); Hemoglobin 16.70 g/dL (11.27-16.99); Mean Corpuscular HGB Conc 33.1 g/dL (30-55); Mean Corpuscular Hemoglobin 29.9 pg (27-33); Mean Corpuscular Volume 90.2 fl (85-98); Nucleated Red Blood Cells % 0 %; Platelet Count 255 10^3/cmm (157-399); Red Blood Count 5.59 10^6/uL (3.85-5.65); White Blood Count 12.02 10^3/uL (3.29-11.43)
[2025-01-18 10:17] LABS: Ketone (Acetest) Serum Negative (Negative)
[2025-01-18 10:19] LABS: Alanine Aminotransferase 9 U/L (0-33); Albumin Level 3.1 g/dL (3.5-5.2); Alkaline Phosphatase 79 U/L (35-105); Anion Gap 18.3 (5-19); Aspartate Amino Transferase 28 U/L (0-32); Blood Urea Nitrogen 14 mg/dL (8-23); Calcium 9.7 mg/dL (8.5-10.5); Carbon Dioxide 24 mmol/L (22-29); Chloride 91 mmol/L (98-107); Creatinine Clr Calc Pharmacy 70.1387; Globulin 4.7 g/dL (1.3-4.6); Glucose 181 mg/dL (65-115); Osmolality Calculated 273 mOsm/kg (285-295); Potassium 4.3 mmol/L (3.5-5.1); Sodium 129 mmol/L (136-145); Total Protein 7.8 g/dL (6.6-8.7)
[2025-01-18 10:20] LABS: Lactic Sepsis W/Reflex 2.1 mmol/L (0.5-2.2)
[2025-01-18 11:00] LABS: Glucose Urine UA 2+ (Normal); Nitrate Urine Negative (Negative); Specific Gravity, Urine 1.027 (1.005-1.030)
[2025-01-18 11:03] LABS: Add Urine Microscopic? YES
[2025-01-18 11:40] LABS: UA Slide Review UA Slide Review Perf
[2025-01-18 11:46] LABS: Reflex Lactate Order REFLEX LACTIC ORDERD
--- NOTE | 2025-01-18 12:54 | P.HP_ITS ---
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, she has a flexion contracture of her right lower extremity, she has a heel DTI, she has a DTI over her sacrum according to family, she needs assistance for transfers, she can feed herself with her left arm, she can communicate a few words, no recent falls, currently patient is alert oriented x 1, she can follow commands such as squeezing my fingers with her left hand, but she does not move her left lower extremity, patient's daughters at bedside, patient's is at bedside, according to family, she has been having a poor appetite over the last few days, not at her baseline, more weak, she is less verbal, she was not moving her left arm and her left leg this morning, her last known well normal is not clear, but potentially greater than 24 hours, this morning, she was not moving her left arm her left leg, currently she is moving her left arm, she has good assembler for puller over hand strength in the left arm, but she is not moving her left leg since being in the emergency room, she does track me around the room, she is able to follow commands such as sticking out her tongue she is able to laugh for me, but she does not follow any other commands, family tells me that this is not her, she has never had a seizure, she has a history of UTIs, but her urine is within normal limits here, no history of choking or coughing, Review of Systems 2 General: Reports: ROS unobtainable due to medical condition and ROS unobtainable due to mental status Medications/Allergies Home Medications ?Medication ?Instructions ?Recorded ?Confirmed ?Last Taken ?Type night splint #1 ea 07/22/22 11/17/23 Unkn own Rx mupirocin 2 % topical ointment 1 applic topical BID #2 2 grams 08/17/22 11/17/23 08/28/22 Rx cam boot #1 ea 08/26/22 11/17/23 Unkn own Rx divalproex 250 mg tablet,extended 250 mg PO DAILY 02/2 01/2211/17/23 11/17/23 History release 24 hr erythromycin 5 mg/gram (0.5 %) eye 1 applic ophthalmic (eye) DAILY 08/29/22 11/17/23 Unknown History ointment (3.5 gram tube) insulin glargine 100 unit/mL (3 34 - 40 unit SUBCUT QP M 08/29/22 11/17/23 11/16/23 History mL) subcutaneous pen (Lantus Solostar U-100 Insulin) insulin lispro 100 unit/mL See Rx Instructions .Route .COMPLEX 08/29/22 11/17/23 11/17/23 History subcutaneous solution (Humalog U-100 Insulin) levothyroxine 150 mcg tablet 150 mcg PO DAILY 08/29/22 11/17/23 11/17/23 History trazodone 50 mg tablet 50 mg PO QPM 08/29/2211/16/23 History venlafaxine 150 mg 150 mg PO DAILY 08/29/2211/16/23 History capsule,extended release 24 hr apixaban 5 mg tablet (Eliquis) 5 mg PO BID@0900,2100 # 120 tabs 08/31/22 11/17/23 11/17/23 Rx atorvastatin 40 mg tablet 20 mg (1/2 x 40 mg) PO BEDTI ME #90 08/31/22 11/17/23 11/16/23 Rx tabs metoprolol tartrate 25 mg tablet 25 mg PO BID@0900,210 0 #90 tabs 08/31/22 11/17/23 11/17/23 Rx Allergies Allergy/AdvReac Type Severity Reaction Status Date / Time No Known Allergies Allergy Verified 01/18/25 09:38 PFSH Acute 2 PFSH: Medical History Diabetes mellitus Hypothyroidism CVA (cerebral vascular accident) Leukocytosis CKD (chronic kidney disease) stage 3, GFR 30-59 ml/min Hyponatremia Atrial fibrillation with RVR Hyperkalemia Acquired right foot drop Social History Smoking and tobacco/nicotine status: former use of tobacco/nicotine Vitals/I&O/Wt Last Vital Signs Temp 97.6 F 01/18/25 09:33 Pulse 76 01/18/25 11:07 Resp 16 01/18/25 09:33 BP 169/81 01/18/25 11:07 Pulse Ox 98 01/18/25 11:07 O2 Del Method Room Air 01/18/25 11:07 Weight last 48 hrs Weight 90.718 kg Physical Exam 2 Const: COMMON NORMALS: no acute distress ORIENTATION/CONSCIOUSNESS: Yes awake and Yes confused; not oriented to person, not oriented to place and not oriented to time OTHER: Pupils are equal round reactive to light she is able to track me around the room, I cannot discern any saccadic eye movement Eye: COMMON NORMALS: Equal, round and reactive pupils present Lymph: LYMPHATIC: no lymphadenopathy noted Resp: COMMON NORMALS: normal respiratory effort, No retractions, No use of accessory muscles and clear to auscultation bilaterally AUSCULTATION: clear to auscultation bilaterally Cardio: COMMON NORMALS: no JVD, regular rate, regular rhythm, S1 normal heart sound present and S2 normal heart sound present RATE: regular rate RHYTHM: regular rhythm HEART SOUNDS: S1 normal heart sound present and S2 normal heart sound present GI: COMMON NORMALS: Normal to inspection, nondistended, normoactive bowel sounds present, Soft to palpation and non-tender Extremity: COMMON NORMALS: no pedal edema Neuro: OTHER: Difficult to do neurologic testing, left upper extremity she has good assembler for puller over hand strength, she does not move the left leg, it falls against gravity, she has a flexion contracture of right leg, flexion contracture right hand, she does not move the right hand, I cannot discern any facial droop, she is able to laugh for me, able to smile for me does not say any words to me Data 01/18/25 09:50 01/18/25 09:50 Micro: Microbiology 01/18/25 10:16 Blood Culture - Preliminary Blood SPECIMEN COLLECTED 01/18/25 09:50 Blood Culture - Preliminary Blood SPECIMEN COLLECTED A&P Assessment and plan 1. Altered mental status: 2. Hyponatremia: Plan: Altered mental status - Etiology unclear - Possibly new stroke on the right, causing left-sided deficits - Concerns for possible seizure? - UA within normal limits - CT chest pending - Does have hyponatremia - Will order CT scan abdomen pelvis, does not move the left leg we will also evaluate left hip Hyponatremia, secondary to dehydration, IV fluids Atrial fibrillation continue Eliquis, metoprolol Serial EKGs, start troponins, telemetry monitoring Inflammatory markers ordered Type 2 diabetes mellitus, low-dose sliding scale DTI right heel DTI over sacrum Full code Eliquis for DVT prophylaxis PDMP PDMP Reviewed: Not Reviewed Attestations 2 Medical Necessity Statement*: Patient requires hospitalization, inpatient, greater than 2 midnights for altered mental status Diagnoses Altered mental status R41.82 Hyponatremia E87.1
--- NOTE | 2025-01-18 13:11 | ECG_ITS ---
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 Measurements Intervals [place] Rate: 76 P: 31 HI: 112 QRS: -22 QRSD: 88 T: -2 QT: 402 QTc: 455 Interpretive Statements SINUS RHYTHM WITH SHORT HI INTERVAL POSSIBLE LEFT ATRIAL ENLARGEMENT [-0.1mV P-WAVE IN V1/V2] BORDERLINE LEFT AXIS DEVIATION [QRS AXIS < -20] NONSPECIFIC ST & T-WAVE ABNORMALITY Compared to ECG 11/17/2023 14:51:47 Short HI interval now present T-wave abnormality now present Sinus bradycardia no longer present Electronically Signed On 01-19-2025 18:37:22 CDT by Carolyn Pompa M.D. [email or web address]
[2025-01-18 13:30] LABS: NT Pro B Type Natriuretic Pept 3483 pg/mL (0-125)
[2025-01-18 14:07] LABS: Troponin(5th) Baseline 46 ng/L (0-10)
[2025-01-18 14:08] LABS: Lactic Acid level (Lactate) 1.4 mmol/L (0.5-2.2)
[2025-01-18 14:50] LABS: Procalcitonin 0.31 ng/mL (0-0.5)
--- NOTE | 2025-01-18 17:06 | CTR_ITS ---
PROCEDURE INFORMATION: Exam: CT Chest Without Contrast; Diagnostic Exam date and time: 01/18/2025 5:31 PM Age: 69 years old Clinical indication: Fever and other: AMS; Other: N/a; Lethargy and confusion with fever; Additional info: AMS, leukocytosis TECHNIQUE: Imaging protocol: Diagnostic computed tomography of the chest without contrast. Radiation optimization: All CT scans at this facility use at least one of these dose optimization techniques: automated exposure control; mA and/or kV adjustment per patient size (includes targeted exams where dose is matched to clinical indication); or iterative reconstruction. COMPARISON: 1. CT chest wo con [id number] 05/30/2023 10:[address] chest wo con [id number] 11/07/2022 1:12 PM RADIATION DOSE METRICS: Total DLP (mGy-cm): 868.88 FINDINGS: Lungs: There is also some linear scarring in the middle lobe unchanged. There is no acute pulmonary infiltrate. Pleural spaces: There is 2.7 cm sized rounded soft tissue density posterior right costophrenic angle with associated pleural thickening. This is consistent with rounded atelectasis and is stable compared with 11/07/2022. There are no pleural effusions present. Heart: Unremarkable. No cardiomegaly. No pericardial effusion. Coronary arteries: There is severe atherosclerotic calcification of the coronary arteries. Lymph nodes: There is no evidence of lymphadenopathy. Vasculature: There is atherosclerotic calcification of the descending thoracic aorta. There is no thoracic aortic aneurysm. Bones/joints: There is no evidence of acute fracture. Soft tissues: Unremarkable. PROCEDURE INFORMATION: Exam: CT Abdomen And Pelvis Without Contrast Exam date and time: 01/18/2025 5:31 PM Age: 69 years old Clinical indication: Fever and other: AMS; Other: N/a; Lethargy and confusion with fever; Additional info: AMS, leukocytosis TECHNIQUE: Imaging protocol: Computed tomography of the abdomen and pelvis without contrast. Radiation optimization: All CT scans at this facility use at least one of these dose optimization techniques: automated exposure control; mA and/or kV adjustment per patient size (includes targeted exams where dose is matched to clinical indication); or iterative reconstruction. COMPARISON: CT abdomen pelvis w con* [id number] 08/29/2022 2:09 AM RADIATION DOSE METRICS: Total DLP (mGy-cm): 868.88 FINDINGS: Limitations: The absence of intravenous contrast lessens the sensitivity of this study for solid organ abnormalities. Study somewhat limited due to streak artifact created by the patient being scanned with the arms at the sides. Liver: There is no focal abnormality within the liver. Gallbladder and biliary ducts: There has been a cholecystectomy. Common bile duct is moderately prominent measuring up to 14 mm which is not unusual post cholecystectomy but is slightly larger than on prior examinations. Pancreas: Pancreas is very atrophic. This has progressed from previous examinations including the visualized portions of the pancreas on CT chest 05/30/2023 Spleen: The spleen is normal. Adrenal glands: The adrenal glands are normal. Kidneys and ureters: The kidneys are normal. There is no evidence of hydronephrosis. There is no evidence of renal or ureteral calcifications. Stomach and bowel: There is no evidence of colitis/diverticulitis. There is no evidence of intestinal obstruction. There is no evidence of intestinal obstruction. Appendix: A normal appendix is identified. Intraperitoneal space: There is no evidence of free intraperitoneal fluid. There is no evidence of free intraperitoneal fluid. Vasculature: The aorta demonstrates moderate atherosclerotic calcification. There is no evidence of an abdominal aortic aneurysm. Lymph nodes: There is no evidence of lymphadenopathy. Urinary bladder: There may be mild thickening of the urinary bladder wall but the bladder is not well distended for proper evaluation. Please correlate for any clinical signs or symptoms of urinary tract infection. Reproductive: There has been a hysterectomy. Bones/joints: The lumbar spine demonstrates moderate degenerative changes at multiple levels. There is no evidence of acute fracture. Soft tissues: Unremarkable. CT/[place] [id number] IMPRESSION: Stable appearing rounded atelectasis and pleural thickening right lower lobe. No acute finding in the chest IMPRESSION: 1. Atrophic pancreas 2. Question of mild thickening of the urinary bladder wall. Please correlate clinically for signs of urinary tract infection.
[2025-01-18 17:42] LABS: Estmated Average Glucose 174; Hemoglobin A1C 7.7 % (4.0-6.0)
[2025-01-18 17:48] LABS: Cholesterol 111 mg/dL (0-200); HDL Cholesterol 42 mg/dL (60-100); Thyroid Stimulating Hormone 1.48 uIU/mL (0.27-4.20); Triglycerides 94 mg/dL (0-150)
[2025-01-18] MEDS: pantoprazole 40 mg SDV IVP (18:18)
--- NOTE | 2025-01-18 18:27 | PC.NURSE ---
patient is unable to complete stroke scale due to previous stroke deficits. patient understands some commands and may or may not respond with yes or no at baseline. patient was able to communications instructor hand with only left side. patient is unable to follow other commands for stroke scale.
--- NOTE | 2025-01-18 19:00 | ECG_ITS ---
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 Measurements Intervals [place] Rate: 95 P: 49 SC: 168 QRS: -14 QRSD: 86 T: 15 QT: 361 QTc: 455 Interpretive Statements SINUS RHYTHM MODERATE ST DEPRESSION [0.05+ mV ST DEPRESSION] Compared to ECG 01/18/2025 13:11:48 ST (T wave) deviation now present Short SC interval no longer present T-wave abnormality no longer present Electronically Signed On 01-19-2025 18:39:29 CDT by Carolyn Pompa M.D. [email or web address]
[2025-01-18 20:38] LABS: Troponin 5 6HR 36.59 ng/L (0-10)
[2025-01-18 20:45] LABS: Troponin 5 6HR Delta -9.41 ng/L (0-12)
[2025-01-19] VITALS (7 sets, daily range): BP systolic 108–179; BP diastolic 56–81; PULSE 72–99; RESP 16–19; TEMP 36.4–37.2; O2SAT 93–100
--- NOTE | 2025-01-19 04:28 | PC.NURSE ---
Patient is unable to move right sided arm and leg and can only answer yes or no questions these are lasting deficits from patients previous cva. This nurse was unable to perform stroke scale due to these deficits.
[2025-01-19 05:29] LABS: Hematocrit 42.8 % (36-47); Hemoglobin 13.80 g/dL (11.27-16.99); Mean Corpuscular HGB Conc 32.2 g/dL (30-55); Mean Corpuscular Hemoglobin 30.0 pg (27-33); Mean Corpuscular Volume 93.0 fl (85-98); Nucleated Red Blood Cells % 0 %; Platelet Count 183 10^3/cmm (157-399); Red Blood Count 4.60 10^6/uL (3.85-5.65); White Blood Count 11.33 10^3/uL (3.29-11.43)
[2025-01-19] MEDS: divalproex ER 250 mg Tablet (24H) PO (08:29)
[2025-01-19] MEDS: erythromycin Op Oint 1 gm 1 APPLIC EYE-BOTH (08:29)
[2025-01-19] MEDS: venlafaxine ER (24HR) 150 mg Capsule PO (08:29)
[2025-01-19] MEDS: cefTRIAXone 1,000 mg SDV 1000 MG IVP (09:04)
[2025-01-19 09:48] LABS: Alanine Aminotransferase < 5 U/L (0-33); Albumin Level 1.4 g/dL (3.5-5.2); Alkaline Phosphatase 34 U/L (35-105); Anion Gap 21.0 (5-19); Aspartate Amino Transferase 10 U/L (0-32); Blood Urea Nitrogen 10 mg/dL (8-23); Carbon Dioxide 13 mmol/L (22-29); Chloride 119 mmol/L (98-107); Creatinine Clr Calc Pharmacy 72.0263; Globulin 2.2 g/dL (1.3-4.6); Glucose 87 mg/dL (65-115); Osmolality Calculated 310 mOsm/kg (285-295); Sodium 151 mmol/L (136-145); Total Protein 3.6 g/dL (6.6-8.7)
[2025-01-19 09:52] LABS: Calcium 4.7 mg/dL (8.5-10.5); Magnesium 0.8 mg/dL (1.7-2.3); Potassium 2.0 mmol/L (3.5-5.1)
[2025-01-19 11:28] LABS: Alanine Aminotransferase 7 U/L (0-33); Albumin Level 2.5 g/dL (3.5-5.2); Alkaline Phosphatase 64 U/L (35-105); Anion Gap 15.6 (5-19); Aspartate Amino Transferase 19 U/L (0-32); Blood Urea Nitrogen 15 mg/dL (8-23); Calcium 8.7 mg/dL (8.5-10.5); Carbon Dioxide 21 mmol/L (22-29); Chloride 101 mmol/L (98-107); Creatinine Clr Calc Pharmacy 72.0263; Globulin 4.0 g/dL (1.3-4.6); Glucose 126 mg/dL (65-115); Magnesium 1.5 mg/dL (1.7-2.3); Osmolality Calculated 280 mOsm/kg (285-295); Potassium 3.6 mmol/L (3.5-5.1); Sodium 134 mmol/L (136-145); Total Protein 6.5 g/dL (6.6-8.7)
[2025-01-19 11:40] LABS: Calcium 8.5 mg/dL (8.5-10.5)
--- NOTE | 2025-01-19 13:29 | P.PN_ITS ---
Vitals/I&O/Wt Last Vital Signs Temp 98.0 F 01/19/25 12:04 Pulse 98 01/19/25 12:04 Resp 19 H 01/19/25 12:04 BP 152/79 01/19/25 12:04 Pulse Ox 98 01/19/25 12:04 O2 Del Method Room Air 01/19/25 12:04 01/18/25 01/19/25 01/19/25 22:59 06:59 14:59 Intake Total 1000 / 1000 250 / 250 Balance 1000 / 1000 250 / 250 Weight last 48 hrs Weight 74.752 kg Weight 74.752 kg Weight 90.718 kg Physical Exam 2 Const: COMMON NORMALS: no acute distress ORIENTATION/CONSCIOUSNESS: Yes awake and Yes confused; not oriented to person, not oriented to place and not oriented to time OTHER: Pupils equal round reactive to light, does track Resp: COMMON NORMALS: normal respiratory effort, No retractions, No use of accessory muscles and clear to auscultation bilaterally AUSCULTATION: clear to auscultation bilaterally Cardio: COMMON NORMALS: regular rate, regular rhythm, S1 normal heart sound present and S2 normal heart sound present RATE: regular rate RHYTHM: r egular rhythm HEART SOUNDS: S1 normal heart sound present and S2 normal heart sound present GI: COMMON NORMALS: Normal to inspection, nondistended, normoactive bowel sounds present and non-tender Extremity: COMMON NORMALS: no pedal edema Neuro: SENSORIUM/ORIENTATION: No oriented to person, No oriented to place and No oriented to time OTHER: She has right-sided hemiplegia from her prior stroke She moves left upper extremity has good see wheeler strength Is able to turn her head to the left She does not move the left lower extremity, but she has a her left leg in a flexed position, she is quite resistant on moving her left hip, her left knee, her left elbow COVID skis upward Psych: COMMON NORMALS: mental status grossly normal Data 01/19/25 05:24 01/19/25 10:55 Micro: Microbiology 01/18/25 10:16 Blood Culture - Preliminary Blood NEGATIVE TO DATE 01/18/25 09:50 Blood Culture - Preliminary Blood NEGATIVE TO DATE A&P Assessment and plan 1. Altered mental status: 2. Hyponatremia: Plan: Altered mental status - Etiology unclear - Possibly new stroke on the right, causing left-sided deficits - Concerns for possible seizure? -Concerns for possible stroke? With left-sided weakness, she has good left upper extremity strength, she is very hesitant about moving left leg, I cannot discern any facial droop, she is able to laugh, pupils equal round reactive to light - UA within normal limits - CT chest with right lower lobe pneumonia - Does have hyponatremia Left sided weakness -CT head within normal limits - No left upper extremity weakness - She is able to follow commands she has good see wheeler strength - No facial droop -Is not very communicative - She only is able to laugh for me - She does not want to move the left leg - Is not clear if this is a stroke or not - Nonetheless she is out of the stroke window on admission, she not a candidate for tPA as she is on Eliquis - But this is not exactly clear if this is a stroke or another disease process - Nonetheless continue aspirin, Eliquis, statin RLL PNA CT/[place] [id number] IMPRESSION: Stable appearing rounded atelectasis and pleural thickening right lower lobe. No acute finding in the chest - Continue Rocephin - Continue Zithromycin Hyponatremia, secondary to dehydration, IV fluids Atrial fibrillation continue Eliquis, metoprolol Serial EKGs, start troponins, telemetry monitoring Decreased mobility of the left lower extremity will order x-ray of left hip, left knee Type 2 diabetes mellitus, low-dose sliding scale DTI right heel DTI over sacrum Full code Eliquis for DVT prophylaxis PDMP PDMP Reviewed: Not Reviewed Attestations 2 Medical Necessity Statement*: Patient requires hospitalization for altered mental status, left-sided weakness, right lower lobe pneumonia Diagnoses Altered mental status R41.82 Hyponatremia E87.1
--- NOTE | 2025-01-19 13:55 | XRR_ITS ---
PROCEDURE INFORMATION: Exam: XR Left Hip Exam date and time: 01/19/2025 4:14 PM Age: 69 years old Clinical indication: Hip pain; Left hip TECHNIQUE: Imaging protocol: Radiologic exam of the left hip. Views: 2 or 3 views hip with pelvis when performed. COMPARISON: CT abdomen pelvis w con* [id number] 08/29/2022 2:09 AM FINDINGS: Bones/joints: Slight articular surface narrowing and spurring. No fracture or dislocation. No acute osseous or joint abnormality.. No acute fracture. Soft tissues: Unremarkable. XR/XR hip LT 2-3V wo/w pel* [id number] IMPRESSION: No acute findings.
--- NOTE | 2025-01-19 13:55 | XRR_ITS ---
PROCEDURE INFORMATION: Exam: XR Left Knee Exam date and time: 01/19/2025 4:14 PM Age: 69 years old Clinical indication: Pain; Knee; Left TECHNIQUE: Imaging protocol: Radiologic exam of the left knee. Views: 1 or 2 views. COMPARISON: CR (LOW EXM, ) 01/19/2025 4:14 PM FINDINGS: Bones/joints: Mild tricompartment narrowing and spurring. No fracture or dislocation. Soft tissues: Normal. Vasculature: Vascular calcifications. XR/XR knee LT 1-2V [id number] IMPRESSION: No acute findings.
--- NOTE | 2025-01-19 13:55 | XRR_ITS ---
PROCEDURE INFORMATION: Exam: XR Left Ankle Exam date and time: 01/19/2025 4:14 PM Age: 69 years old Clinical indication: Pain; Ankle; Left TECHNIQUE: Imaging protocol: Radiologic exam of the left ankle. Views: 1 or 2 views. COMPARISON: CR XR knee LT 1-2V [id number] 01/19/2025 4:14 PM FINDINGS: Bones/joints: Normal. No fracture or dislocation. No soft tissue abnormality. Soft tissues: Normal. XR/XR ankle LT 2V 10002 IMPRESSION: No acute findings.
[2025-01-19] MEDS: magnesium sulfate premix 1 GM/100 ML PIGGYBACK IV (14:59)
[2025-01-19] MEDS: pantoprazole 40 mg SDV IVP (16:51)
[2025-01-20 03:44] LABS: Alanine Aminotransferase 7 U/L (0-33); Albumin Level 2.6 g/dL (3.5-5.2); Alkaline Phosphatase 68 U/L (35-105); Anion Gap 15.0 (5-19); Aspartate Amino Transferase 18 U/L (0-32); Blood Urea Nitrogen 12 mg/dL (8-23); Calcium 8.8 mg/dL (8.5-10.5); Carbon Dioxide 23 mmol/L (22-29); Chloride 95 mmol/L (98-107); Creatinine Clr Calc Pharmacy 72.0263; Globulin 4.2 g/dL (1.3-4.6); Glucose 160 mg/dL (65-115); Hematocrit 40.9 % (36-47); Hemoglobin 13.70 g/dL (11.27-16.99); Magnesium 1.7 mg/dL (1.7-2.3); Mean Corpuscular HGB Conc 33.5 g/dL (30-55); Mean Corpuscular Hemoglobin 30.4 pg (27-33); Mean Corpuscular Volume 90.9 fl (85-98); Nucleated Red Blood Cells % 0 %; Osmolality Calculated 273 mOsm/kg (285-295); Platelet Count 213 10^3/cmm (157-399); Potassium 3.0 mmol/L (3.5-5.1); Red Blood Count 4.50 10^6/uL (3.85-5.65); Sodium 130 mmol/L (136-145); Total Protein 6.8 g/dL (6.6-8.7); White Blood Count 13.24 10^3/uL (3.29-11.43)
[2025-01-20 04:00] VITALS: BP 172/80; PULSE 92; RESP 17; TEMP 36.8; O2SAT 95
[2025-01-20] MEDS: morphine 4 mg/mL SDV 1 mL 2 MG IVP (06:16)
[2025-01-20 07:45] VITALS: BP 187/83; PULSE 88; RESP 16; TEMP 36.5; O2SAT 93
[2025-01-20] MEDS: venlafaxine ER (24HR) 150 mg Capsule PO (07:46)
[2025-01-20] MEDS: divalproex ER 250 mg Tablet (24H) PO (07:46)
[2025-01-20] MEDS: erythromycin Op Oint 1 gm 1 APPLIC EYE-BOTH (07:46)
[2025-01-20] MEDS: cefTRIAXone 1,000 mg SDV 1000 MG IVP (07:46)
--- NOTE | 2025-01-20 08:10 | PC.SOCIAL ---
IMM Update Pg. 2 of IMM updated and reviewed with patient, who verbalized understanding. Copy provided.
[2025-01-20] MEDS: potassium phosphate (mEq K) 40 MEQ in sodium chloride 0.9% (100 ml) 100 ML 27.25 MEQ IV (09:28)
[2025-01-20 11:52] VITALS: BP 135/76; PULSE 70; RESP 17; TEMP 36.7; O2SAT 95
--- NOTE | 2025-01-20 12:51 | MR_ITS ---
WS: [id number] MRI HEAD WITHOUT CONTRAST TECHNIQUE: Sagittal T1, T2 axial, T2 axial FLAIR, axial and coronal T1 images, axial susceptibility weighted imaging, axial diffusion weighted images, and coronal T2 images were obtained. CLINICAL INFORMATION: ams COMPARISON: CT 01/18/2025 FINDINGS: Fast imaging was performed No evidence of restricted diffusion to suggest acute ischemia. Chronic LEFT MCA territory infarct with encephalomalacia and gliosis. Wallerian degeneration LEFT midbrain. Moderate atrophy in the cerebellum. Chronic hemosiderin about the LEFT lateral ventricle. Loss of the normal LEFT ICA flow void likely due to chronic occlusion. Mild mucosal thickening in the RIGHT posterior ethmoid air cells. Mastoid air cells are well aerated. No other acute findings. MR/MR head wo con* [id number] IMPRESSION: 1. No evidence of restricted diffusion to suggest acute ischemia. 2. Chronic LEFT MCA territory infarct with encephalomalacia and gliosis. Ex-va cuo dilatation LEFT lateral ventricle. 3. Presumed chronic LEFT ICA occlusion at the skull base. 4. No other acute findings.
--- NOTE | 2025-01-20 15:57 | PC.NURSE ---
Incontinent of large amount of urine
[2025-01-20 16:00] VITALS: BP 145/87; PULSE 84; RESP 16; TEMP 36.8; O2SAT 96
--- NOTE | 2025-01-20 17:07 | USCV_ITS ---
Renetta Casey Age: 69 Gender: F : 1955 Exam Date: 01/20/2025 17:39 Ordering Phys: Juan Maldonado MD Technologist: [employer] Exam Location: [facility] – [place]_ Indication: left ICA occlusion Risk Factors: Previous Vascular Surgery: Right Brachial BP: / Left Brachial BP: / Right Left Velocity (cm/s) Spectral Plaque Velocity (cm/s) Spectral Plaque Syst/Diast Broadening Syst/Diast Broadening 45.30/ 3.70 Prox CCA 37.80 / 8.20 36.10/ 6.30 Mid CCA 38.70 / 10.60 32.20/ 3.40 Distal CCA 37.70 / 5.60 56.80/ 9.50 Prox ICA 40.50 / 4.90 64.00/ 13.70 Mid ICA 61.80 / 8.10 61.40/ 11.10 Distal ICA 54.50 / 12.50 35.90 ECA 53.50 2.00 ICA/CCA 1.60 Antegrade Vertebral Antegrade 36.70/ 4.60 cm/s 52.80/ 6.60 cm/s Tri Subclavian Bi 105.7 112.4 0 0 FINDINGS Comparison: none available. Diffuse bilateral scattered calcified plaque and intimal thickening throughout the common carotid arteries and extending through the bifurcation. Greater plaque with irregular surface at the left bifurcation. Antegrade vertebral arteries. CONCLUSIONS Bilateral ICA stenosis less than 50%. Diffuse plaque with irregular surfaces, greatest at the left bifurcation. Dr. Sydni Carabalol DO (Electronically Signed) Final Date: 21 January 2025 08:07 S
[2025-01-20] MEDS: pantoprazole 40 mg SDV IVP (17:08)
--- NOTE | 2025-01-20 17:09 | P.PN_ITS ---
Subjective 2 Subjective: Patient was seen this morning, currently alert oriented to person, not place, not to time, this morning she is more drowsy, less communicative, she is able to move her left arm, she is very hesitant about moving her left leg Vitals/I&O/Wt Last Vital Signs Temp 98.2 F 01/20/25 16:00 Pulse 84 01/20/25 16:00 Resp 16 01/20/25 16:00 BP 145/87 01/20/25 16:00 Pulse Ox 96 01/20/25 16:00 O2 Del Method Room Air 01/20/25 16:00 01/20/25 01/20/25 01/20/25 06:59 14:59 22:59 Intake Total 599.0909 / 599.0909 Balance 599.0909 / 599.0909 Weight last 48 hrs Weight 76.385 kg Weight 74.752 kg Weight 74.752 kg Physical Exam 2 Const: COMMON NORMALS: no acute distress ORIENTATION/CONSCIOUSNESS: Yes awake, Yes oriented to person and Yes oriented to place; not oriented to time Eye: COMMON NORMALS: Equal, round and reactive pupils present PUPIL: Yes Equal, round and reactive pupils present Resp: COMMON NORMALS: normal respiratory effort, No retractions, No use of accessory muscles and clear to auscultation bilaterally AUSCULTATION: clear to auscultation bilaterally Cardio: COMMON NORMALS: regular rate, regular rhythm, S1 normal heart sound present and S2 normal heart sound present RATE: regular rate RHYTHM: r egular rhythm HEART SOUNDS: S1 normal heart sound present and S2 normal heart sound present GI: COMMON NORMALS: Normal to inspection, nondistended, normoactive bowel sounds present and non-tender Extremity: COMMON NORMALS: no pedal edema OTHER: left upper extremity good strength, decreased left leg movement Neuro: SENSORIUM/ORIENTATION: Yes oriented to person, Yes oriented to place and No oriented to time Psych: COMMON NORMALS: mental status grossly normal Data 01/20/25 03:06 01/20/25 03:06 A&P Assessment and plan 1. Altered mental status: 2. Hyponatremia: Plan: Altered mental status - Etiology unclear - Possibly new stroke on the right, causing left-sided deficits - Concerns for possible seizure? -Concerns for possible stroke? 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 No acute finding in the chest - Continue Rocephin - Continue Zithromycin Hyponatremia,130, secondary to dehydration, IV fluids Atrial fibrillation continue Eliquis, metoprolol Serial EKGs, start troponins, telemetry monitoring Decreased mobility of the left lower extremity will order x-ray of left hip, left knee Type 2 diabetes mellitus, low-dose sliding scale DTI right heel DTI over sacrum Full code Eliquis for DVT prophylaxis Cussed goals of care with family, MRI brain, continue IV antibiotics, speech therapy eval PDMP PDMP Reviewed: Not Reviewed Attestations 2 Medical Necessity Statement*: Patient requires hospitalization for left-sided weakness concern for acute CVA Diagnoses Altered mental status R41.82 Hyponatremia E87.1
[2025-01-20 20:00] VITALS: BP 139/72; PULSE 76; RESP 16; TEMP 36.6; O2SAT 98
[2025-01-21] VITALS (7 sets, daily range): BP systolic 125–174; BP diastolic 63–82; PULSE 61–89; RESP 16–18; TEMP 36.6–37.1; O2SAT 93–97
[2025-01-21 05:38] LABS: Hematocrit 39.6 % (36-47); Hemoglobin 12.60 g/dL (11.27-16.99); Mean Corpuscular HGB Conc 31.8 g/dL (30-55); Mean Corpuscular Hemoglobin 29.6 pg (27-33); Mean Corpuscular Volume 93.2 fl (85-98); Nucleated Red Blood Cells % 0 %; Platelet Count 207 10^3/cmm (157-399); Red Blood Count 4.25 10^6/uL (3.85-5.65); White Blood Count 8.93 10^3/uL (3.29-11.43)
[2025-01-21 06:00] LABS: Alanine Aminotransferase 7 U/L (0-33); Albumin Level 2.2 g/dL (3.5-5.2); Alkaline Phosphatase 61 U/L (35-105); Anion Gap 15.6 (5-19); Aspartate Amino Transferase 17 U/L (0-32); Blood Urea Nitrogen 10 mg/dL (8-23); Calcium 8.6 mg/dL (8.5-10.5); Carbon Dioxide 21 mmol/L (22-29); Chloride 102 mmol/L (98-107); Creatinine Clr Calc Pharmacy 72.7299; Globulin 4.1 g/dL (1.3-4.6); Glucose 89 mg/dL (65-115); Magnesium 1.8 mg/dL (1.7-2.3); Osmolality Calculated 279 mOsm/kg (285-295); Potassium 3.6 mmol/L (3.5-5.1); Sodium 135 mmol/L (136-145); Total Protein 6.3 g/dL (6.6-8.7)
[2025-01-21] MEDS: divalproex ER 250 mg Tablet (24H) PO (08:57)
[2025-01-21] MEDS: venlafaxine ER (24HR) 150 mg Capsule PO (08:57)
[2025-01-21] MEDS: cefTRIAXone 1,000 mg SDV 1000 MG IVP (08:57)
--- NOTE | 2025-01-21 17:09 | PM.PN ---
Subjective Subjective: Patient was seen this morning, currently alert oriented x 1, does not follow commands, she is able to laugh for me, smiles at me she moves her left arm, she is hesitant to moving the left lower extremity, discussed with family that this could be a flexion contracture, discussed that this potentially is her level of functioning, working on placement to halfway facility Vitals/I&O/Wt Last Vital Signs Temp 98.7 F 01/21/25 15:50 Pulse 82 01/21/25 15:50 Resp 18 01/21/25 15:50 BP 171/72 01/21/25 15:50 Pulse Ox 95 01/21/25 15:50 O2 Del Method Room Air 01/21/25 15:50 01/21/25 01/21/25 01/21/25 06:59 14:59 22:59 Intake Total 1000 / 1659.0909 390 / 390 Balance 1000 / 1659.0909 390 / 390 Weight last 48 hrs Weight 77.111 kg Weight 76.385 kg Physical Exam Const: COMMON NORMALS: no acute distress ORIENTATION/CONSCIOUSNESS: Yes awake and Yes oriented to person; not oriented to place and not oriented to time Eye: COMMON NORMALS: Equal, round and reactive pupils present PUPIL: Yes Equal, round and reactive pupils present Resp: COMMON NORMALS: normal respiratory effort, No retractions, No use of accessory muscles and clear to auscultation bilaterally AUSCULTATION: clear to auscultation bilaterally Cardio: COMMON NORMALS: regular rate, regular rhythm, S1 normal heart sound present and S2 normal heart sound present RATE: regular rate RHYTHM: regular rhythm HEART SOUNDS: S1 normal heart sound present and S2 normal heart sound present GI: COMMON NORMALS: Normal to inspection, nondistended, normoactive bowel sounds present and non-tender Extremity: COMMON NORMALS: no pedal edema Neuro: SENSORIUM/ORIENTATION: Yes oriented to person, No oriented to place and No oriented to time Data 01/21/25 05:20 01/21/25 05:20 A&P Assessment and plan 1. Altered mental status: 2. Hyponatremia: Plan: Altered mental status - Etiology unclear - Possibly new stroke on the right, causing left-sided deficits - Concerns for possible seizure? -Concerns for possible stroke? 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 No evidence of restricted diffusion to suggest acute ischemia. 2. Chronic LEFT MCA territory infarct with encephalomalacia and gliosis. Ex-vacuo dilatation LEFT lateral ventricle. 3. Presumed chronic LEFT ICA occlusion at the skull base. 4. No other acute findings. carotid ultrasound CONCLUSIONS Bilateral ICA stenosis less than 50%. Diffuse plaque with irregular surfaces, greatest at the left bifurcation. - No facial droop -Is not very communicative - She only is able to laugh for me - She does not want to move the left leg - Is not clear if this is a stroke or not - Nonetheless she is out of the stroke window on admission, she not a candidate for tPA as she is on Eliquis - But this is not exactly clear if this is a stroke or another disease process, but suspicious for stroke - Nonetheless continue aspirin, Eliquis, statin RLL PNA CT/[place] [id number] IMPRESSION: Stable appearing rounded atelectasis and pleural thickening right lower lobe. No acute finding in the chest - Continue Rocephin - Continue Zithromycin Hyponatremia,135, secondary to dehydration, IV fluids Atrial fibrillation continue Eliquis, metoprolol Serial EKGs, start troponins, telemetry monitoring Decreased mobility of the left lower extremity will order x-ray of left hip, left knee Type 2 diabetes mellitus, low-dose sliding scale DTI right heel DTI over sacrum Full code Eliquis for DVT prophylaxis Cussed goals of care with family, MRI brain, continue IV antibiotics, speech therapy eval PDMP PDMP Reviewed: Not Reviewed Attestations Medical Necessity Statement*: Patient requires hospitalization for acute CVA Diagnoses Altered mental status R41.82 Hyponatremia E87.1
[2025-01-21] MEDS: pantoprazole 40 mg SDV IVP (17:51)
[2025-01-22 00:12] VITALS: BP 165/85; PULSE 85; RESP 17; TEMP 36.7; O2SAT 96
[2025-01-22 04:13] VITALS: BP 179/91; PULSE 62; RESP 17; TEMP 36.5; O2SAT 95
[2025-01-22 06:53] LABS: Alanine Aminotransferase 8 U/L (0-33); Albumin Level 2.4 g/dL (3.5-5.2); Alkaline Phosphatase 71 U/L (35-105); Anion Gap 17.6 (5-19); Aspartate Amino Transferase 21 U/L (0-32); Blood Urea Nitrogen 7 mg/dL (8-23); Calcium 8.6 mg/dL (8.5-10.5); Carbon Dioxide 23 mmol/L (22-29); Chloride 97 mmol/L (98-107); Creatinine Clr Calc Pharmacy 73.0428; Globulin 4.1 g/dL (1.3-4.6); Glucose 164 mg/dL (65-115); Osmolality Calculated 280 mOsm/kg (285-295); Potassium 3.6 mmol/L (3.5-5.1); Sodium 134 mmol/L (136-145); Total Protein 6.5 g/dL (6.6-8.7)
[2025-01-22 07:12] VITALS: BP 178/81; PULSE 86; RESP 17; TEMP 36.4; O2SAT 94
[2025-01-22 09:07] LABS: Hematocrit 40.3 % (36-47); Hemoglobin 13.50 g/dL (11.27-16.99); Mean Corpuscular HGB Conc 33.5 g/dL (30-55); Mean Corpuscular Hemoglobin 29.9 pg (27-33); Mean Corpuscular Volume 89.2 fl (85-98); Nucleated Red Blood Cells % 0 %; Platelet Count 229 10^3/cmm (157-399); Red Blood Count 4.52 10^6/uL (3.85-5.65); White Blood Count 8.20 10^3/uL (3.29-11.43)
[2025-01-22] MEDS: cefTRIAXone 1,000 mg SDV 1000 MG IVP (09:59)
[2025-01-22] MEDS: venlafaxine ER (24HR) 150 mg Capsule PO (10:00)
[2025-01-22] MEDS: divalproex ER 250 mg Tablet (24H) PO (10:00)
--- NOTE | 2025-01-22 10:07 | PC.SOCIAL ---
IMM Update pg 2 of IMM updated and reviewed w/ patients family. Copy provided and copy dated, initialed and placed in chart.
[2025-01-22 12:00] VITALS: BP 117/69; PULSE 77; RESP 16; TEMP 36.4; O2SAT 93
--- NOTE | 2025-01-22 13:02 | P.PN_ITS ---
Subjective 2 Subjective: Patient was seen this morning, she is noncommunicative, she smiles, she laughs, she moves her left upper extremity, afebrile overnight, normotensive, no family was at bedside Vitals/I&O/Wt Last Vital Signs Temp 97.6 F 01/22/25 12:00 Pulse 77 01/22/25 12:00 Resp 16 01/22/25 12:00 BP 117/69 01/22/25 12:00 Pulse Ox 93 01/22/25 12:00 O2 Del Method Room Air 01/22/25 12:00 01/21/25 01/22/25 01/22/25 22:59 06:59 14:59 Intake Total 120 / 510 1240 / 1750 370 / 370 Balance 120 / 510 1240 / 1750 370 / 370 Weight last 48 hrs Weight 77.111 kg Weight 77.111 kg Physical Exam 2 Const: COMMON NORMALS: no acute distress ORIENTATION/CONSCIOUSNESS: Yes awake and Yes oriented to person; not oriented to place and not oriented to time Resp: COMMON NORMALS: normal respiratory effort, No retractions, No use of accessory muscles and clear to auscultation bilaterally AUSCULTATION: clear to auscultation bilaterally Cardio: COMMON NORMALS: regular rate, regular rhythm, S1 normal heart sound present and S2 normal heart sound present RATE: regular rate RHYTHM: r egular rhythm HEART SOUNDS: S1 normal heart sound present and S2 normal heart sound present GI: COMMON NORMALS: Normal to inspection, nondistended, normoactive bowel sounds present and non-tender Extremity: COMMON NORMALS: no pedal edema Neuro: SENSORIUM/ORIENTATION: Yes oriented to person, No oriented to place and No oriented to time Psych: COMMON NORMALS: mental status grossly normal Data 01/22/25 09:01 01/22/25 06:26 A&P Assessment and plan 1. Altered mental status: 2. Hyponatremia: Plan: Altered mental status - Etiology unclear - Possibly new stroke on the right, causing left-sided deficits - Concerns for possible seizure? -Concerns for possible stroke? 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 No evidence of restricted diffusion to suggest acute ischemia. 2. Chronic LEFT MCA territory infarct with encephalomalacia and gliosis. Ex- vacuo dilatation LEFT lateral ventricle. 3. Presumed chronic LEFT ICA occlusion at the skull base. 4. No other acute findings. carotid ultrasound CONCLUSIONS Bilateral ICA stenosis less than 50%. Diffuse plaque with irregular surfaces, greatest at the left bifurcation. - No facial droop -Is not very communicative - She only is able to laugh for me - She does not want to move the left leg - Is not clear if this is a stroke or not - Nonetheless she is out of the stroke window on admission, she not a candidate for tPA as she is on Eliquis - But this is not exactly clear if this is a stroke or another disease process, but suspicious for stroke - Nonetheless continue aspirin, Eliquis, statin RLL PNA [place] [id number] IMPRESSION: Stable appearing rounded atelectasis and pleural thickening right lower lobe. No acute finding in the chest - Continue Rocephin - Continue Zithromycin Hyponatremia,135, secondary to dehydration, IV fluids, stopped Atrial fibrillation continue Eliquis, metoprolol Serial EKGs, start troponins, telemetry monitoring Decreased mobility of the left lower extremity will order x-ray of left hip, left knee Type 2 diabetes mellitus, low-dose sliding scale DTI right heel DTI over sacrum Full code Eliquis for DVT prophylaxis Patient was seen this morning, continue antibiotics PDMP PDMP Reviewed: Not Reviewed Attestations 2 Medical Necessity Statement*: Patient requires hospitalization for possible CVA Diagnoses Altered mental status R41.82 Hyponatremia E87.1
[2025-01-22 16:00] VITALS: BP 150/77; PULSE 86; RESP 14; TEMP 37; O2SAT 94
[2025-01-22] MEDS: pantoprazole 40 mg SDV IVP (18:08)
[2025-01-22 20:00] VITALS: BP 178/82; PULSE 113; RESP 16; TEMP 37.1; O2SAT 97
[2025-01-23] VITALS: BP 172/72; PULSE 90; RESP 17; TEMP 36.9; O2SAT 95
[2025-01-23 04:00] VITALS: BP 166/69; PULSE 110; RESP 16; TEMP 36.9; O2SAT 96
[2025-01-23 05:36] LABS: Hematocrit 39.7 % (36-47); Hemoglobin 13.40 g/dL (11.27-16.99); Mean Corpuscular HGB Conc 33.8 g/dL (30-55); Mean Corpuscular Hemoglobin 30.4 pg (27-33); Mean Corpuscular Volume 90.0 fl (85-98); Nucleated Red Blood Cells % 0.2 %; Platelet Count 243 10^3/cmm (157-399); Red Blood Count 4.41 10^6/uL (3.85-5.65); White Blood Count 8.13 10^3/uL (3.29-11.43)
[2025-01-23 05:55] LABS: Alanine Aminotransferase 8 U/L (0-33); Albumin Level 2.5 g/dL (3.5-5.2); Alkaline Phosphatase 71 U/L (35-105); Anion Gap 16.9 (5-19); Aspartate Amino Transferase 19 U/L (0-32); Blood Urea Nitrogen 11 mg/dL (8-23); Calcium 8.9 mg/dL (8.5-10.5); Carbon Dioxide 25 mmol/L (22-29); Chloride 96 mmol/L (98-107); Creatinine Clr Calc Pharmacy 73.0428; Globulin 4.1 g/dL (1.3-4.6); Glucose 152 mg/dL (65-115); Osmolality Calculated 280 mOsm/kg (285-295); Potassium 3.9 mmol/L (3.5-5.1); Sodium 134 mmol/L (136-145); Total Protein 6.6 g/dL (6.6-8.7)
[2025-01-23 08:00] VITALS: BP 165/81; PULSE 87; RESP 17; TEMP 37.4; O2SAT 95
[2025-01-23] MEDS: cefTRIAXone 1,000 mg SDV 1000 MG IVP (08:31)
[2025-01-23] MEDS: erythromycin Op Oint 1 gm 1 APPLIC EYE-BOTH (08:32)
[2025-01-23] MEDS: divalproex ER 250 mg Tablet (24H) PO (08:32)
[2025-01-23] MEDS: venlafaxine ER (24HR) 150 mg Capsule PO (08:32)
[2025-01-23 11:17] VITALS: BP 139/80; PULSE 75; RESP 17; TEMP 37.4; O2SAT 96
[2025-01-23 13:44] VITALS: BP 139/80; PULSE 75; RESP 16; TEMP 37.4; O2SAT 96
--- NOTE | 2025-01-23 13:47 | P.DS_ITS ---
Discharge Providers Date of Admission: 01/18/25 12:14 Date of Discharge: January 23, 2025 Attending Provider at Admission: Juan Maldonado MD Attending Provider at Discharge: Juan Maldonado MD Primary Care Provider: Nicole Ray MD Diagnoses at Discharge Discharge Diagnosis 1. Altered mental status: 2. 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, she has a flexion contracture of her right lower extremity, she has a heel DTI, she has a DTI over her sacrum according to family, she needs assistance for transfers, she can feed herself with her left arm, she can communicate a few words, no recent falls, currently patient is alert oriented x 1, she can follow commands such as squeezing my fingers with her left hand, but she does not move her left lower extremity, patient's daughters at bedside, patient's is at bedside, according to family, she has been having a poor appetite over the last few days, not at her baseline, more weak, she is less verbal, she was not moving her left arm and her left leg this morning, her last known well normal is not clear, but potentially greater than 24 hours, this morning, she was not moving her left arm her left leg, currently she is moving her left arm, she has good paper goods machine set up operator strength in the left arm, but she is not moving her left leg since being in the emergency room, she does track me around the room, she is able to follow commands such as sticking out her tongue she is able to laugh for me, but she does not follow any other commands, family tells me that this is not her, she has never had a seizure, she has a history of UTIs, but her urine is within normal limits here, no history of choking or coughing, Patient was admitted to [facility] for altered mental status, left- sided weakness Left sided weakness -CT head within normal limits - No left upper extremity weakness - She is able to follow commands, she has good paper goods machine set up operator strength left arm and, does not have significant movement of the left leg MRI brain - MR/MR head wo con* [id number] IMPRESSION: 1. No evidence of restricted diffusion to suggest acute ischemia. 2. Chronic LEFT MCA territory infarct with encephalomalacia and gliosis. Ex- vacuo dilatation LEFT lateral ventricle. 3. Presumed chronic LEFT ICA occlusion at the skull base. 4. No other acute findings. carotid ultrasound CONCLUSIONS Bilateral ICA stenosis less than 50%. Diffuse plaque with irregular surfaces, greatest at the left bifurcation. - No facial droop -Is not very communicative - She only is able to laugh for me, productive, receptive aphasia - She does not want to move the left leg, imaging is negative for acute fracture - She was cardioverted with broad-spectrum antibiotic therapy for pneumonia, without improvement with strength and mentation - Nonetheless she is out of the stroke window on admission, she not a candidate for tPA as she is on Eliquis - But this is not exactly clear if this is a stroke or another disease process, but suspicious for stroke - Nonetheless continue aspirin, Eliquis, statin - She was monitored as inpatient continue to have left lower extremity flaccid paralysis is able to move her left arm, receptive and productive aphasia - As she was treated with antibiotics for possible pneumonia, her mentation and her weakness did not improve - Thus unfortunately Renetta's current condition is likely from CVA causing left-sided weakness, receptive aphasia, productive aphasia -I did not witness or discern any seizure-like episodes -She did work with speech therapy, managed on a dysphagia diet - She did work with physical therapy, due to her mentation there was a decreased ability for her to work with physical therapy - Attempts were made to place patient to [facility] for rehab - In my opinion patient had shown progress, she was more interactive, she was better at tracking me around the room, she had more movement of her left arm, she continued to have decreased movement of her left leg, but was able to pull her leg towards her more - In my opinion patient needed skilled rehab, - According to family patient was able to pivot transfer, sit to stand with assistance - I believe with with skilled rehab, she could potentially get closer to her prior level of functioning - However after exhaustive efforts to good to her to a [place] [facility] facility, and a peer to peer with patient's insurance company, unfortunately patient's insurance company has declined placement to [facility] - I have that this will be detrimental to patient's clinical progress, she will not get the care she needs, and we will hamper her ability to recover from her stroke -My only option was to discharge her home with home health care - I am worried about her increased needs, her risk of rehospitalization, her increased risk of morbidity and mortality, however patient's insurance company has declined correction placement and skilled rehab - She was discharged on aspirin, statin, Eliquis - Discharged on dysphagia diet - Discharged with home health care For right lower lobe pneumonia, she was managed with IV antibiotics, discharged on p.o. antibiotics Physical Exam Const: COMMON NORMALS: no acute distress ORIENTATION/CONSCIOUSNESS: Yes awake and Yes oriented to person; not oriented to place and not oriented to time Eye: COMMON NORMALS: Equal, round and reactive pupils present PUPIL: Yes Equal, round and reactive pupils present OTHER: Able to smile for me, she is able to paper goods machine set up operator my hand with her left arm Resp: COMMON NORMALS: normal respiratory effort, No retractions, No use of accessory muscles and clear to auscultation bilaterally AUSCULTATION: clear to auscultation bilaterally Cardio: COMMON NORMALS: regular rate, regular rhythm, S1 normal heart sound present and S2 normal heart sound present RATE: regular rate RHYTHM: regular rhythm HEART SOUNDS: S1 normal heart sound present and S2 normal heart sound present GI: COMMON NORMALS: Normal to inspection, nondistended, normoactive bowel sounds present and non-tender Extremity: COMMON NORMALS: no pedal edema OTHER: He is hesitant about moving the left lower extremity Neuro: SENSORIUM/ORIENTATION: Yes oriented to person, No oriented to place and No oriented to time Discharge Data Studies Completed and Pending Completed Studies During Hospitalization Category Date Time Status CT chest abdomen pelvis [[place] [id number] Cat Scan 01/18/25 17:06 Completed ] Routine CT head wo con* [id number] Stat Cat Scan 01/18/25 09:41 Completed XR ankle LT 2V [id number] Routine Exams 01/19/25 13:55 Completed XR hip LT 2-3V wo/w pel* [id number] Routine Exams 01/19/25 13:55 Completed XR knee LT 1-2V [id number] Routine Exams 01/19/25 13:55 Completed MR head wo con* [id number] Routine MRI 01/20/25 12:51 Completed CV carotid duplex BI* [id number] Routine Ultrasound 01/20/25 17:07 Completed Radiology Impressions Head CT 01/18/25 09:41 IMPRESSION: 1. No evidence of acute intracranial process. 2. 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 3. Stable ventriculomegaly. Chest/Abdomen/Pelvis CT 01/18/25 17:06 IMPRESSION: Stable appearing rounded atelectasis and pleural thickening right lower lobe. No acute finding in the chest IMPRESSION: 1. Atrophic pancreas 2. Question of mild thickening of the urinary bladder wall. Please correlate clinically for signs of urinary tract infection. Ankle X-Ray 01/19/25 13:55 IMPRESSION: No acute findings. Hip/Pelvis X-Ray 01/19/25 13:55 IMPRESSION: No acute findings. Knee X-Ray 01/19/25 13:55 IMPRESSION: No acute findings. Head MRI 01/20/25 12:51 IMPRESSION: 1. No evidence of restricted diffusion to suggest acute ischemia. 2. Chronic LEFT MCA territory infarct with encephalomalacia and gliosis. Ex- vacuo dilatation LEFT lateral ventricle. 3. Presumed chronic LEFT ICA occlusion at the skull base. 4. No other acute findings. Laboratory Results WBC 8.13 10^3/uL (3.29-11.43) 01/23/25 05:03 Corrected WBC Cancelled 01/22/25 05:22 RBC 4.41 10^6/uL (3.85-5.65) 01/23/25 05:03 Hgb 13.40 g/dL (11.27-16.99) 01/23/25 05:03 Hct 39.7 % (36-47) 01/23/25 05:03 MCV 90.0 fl (85-98) 01/23/25 05:03 MCH 30.4 pg (27-33) 01/23/25 05:03 MCHC 33.8 g/dL (30-55) 01/23/25 05:03 RDW 13.9 % (12.1-15.1) 01/23/25 05:03 Plt Count 243 10^3/cmm (157-399) 01/23/25 05:03 MPV 10.6 fL (7.4-10.4) H 01/23/25 05:03 Gran % Cancelled 01/22/25 05:22 Neut % (Auto) 53.5 % 01/23/25 05:03 Lymph % (Auto) 24.8 % 01/23/25 05:03 [place] % (Auto) 16.5 % 01/23/25 05:03 Eos % (Auto) 2.5 % 01/23/25 05:03 Baso % (Auto) 1.2 % 01/23/25 05:03 Neut # (Auto) 4.35 10^3/uL (1.8-7.7) 01/23/25 05:03 Lymph # (Auto) 2.0 10^3/uL (0.8-4.8) 01/23/25 05:03 [place] # (Auto) 1.3 10^3/uL (0.2-0.9) H 01/23/25 05:03 Eos # (Auto) 0.2 10^3/uL (0.0-0.8) 01/23/25 05:03 Baso # (Auto) 0.1 10^3/uL (0.0-0.1) 01/23/25 05:03 Absolute Gran (auto) Cancelled 01/22/25 05:22 Nucleated RBC % (auto) 0.2 % 01/23/25 05:03 Nucleated RBCs # 0.0 /100WBC 01/23/25 05:03 ESR 23 mm/hr (0-15) H 01/18/25 13:39 Sodium 134 mmol/L (136-145) L 01/23/25 05:03 Potassium 3.9 mmol/L (3.5-5.1) 01/23/25 05:03 Chloride 96 mmol/L (98-107) L 01/23/25 05:03 Carbon Dioxide 25 mmol/L (22-29) 01/23/25 05:03 Anion Gap 16.9 (5-19) 01/23/25 05:03 BUN 11 mg/dL (8-23) 01/23/25 05:03 Creatinine 0.7 mg/dL (0.5-0.9) 01/23/25 05:03 GFR Calculation 83.5 mL/min (90-130) L 01/23/25 05:03 Glucose 152 mg/dL (65-115) H 01/23/25 05:03 POC Glucose 145 mg/dL (70-110) H 01/23/25 10:53 Estimat Average Glucose 174 01/18/25 09:50 Hemoglobin A1c 7.7 % (4.0-6.0) H 01/18/25 09:50 Calculated Osmolality 280 mOsm/kg (285-295) L 01/23/25 05:03 Lactic Acid 2.1 mmol/L (0.5-2.2) 01/18/25 09:50 Lactic Acid (Sepsis) 1.4 mmol/L (0.5-2.2) 01/18/25 13:39 Calcium 8.9 mg/dL (8.5-10.5) 01/23/25 05:03 Ionized Calcium Arvind 1.1 mmol/L (1.1-1.4) 01/19/25 10:55 Phosphorus 3.1 mg/dL (2.5-4.5) 01/21/25 05:20 Magnesium 1.8 mg/dL (1.7-2.3) 01/21/25 05:20 Total Bilirubin 0.6 mg/dL (0.15-1.2) 01/23/25 05:03 AST 19 U/L (0-32) 01/23/25 05:03 ALT 8 U/L (0-33) 01/23/25 05:03 Alkaline Phosphatase 71 U/L (35-105) 01/23/25 05:03 Troponin T Baseline 46 ng/L (0-10) H 01/18/25 13:39 Troponin T Hi Sens 6Hr 36.59 ng/L (0-10) H 01/18/25 20:01 Troponin T Hi Sens 6Hr Delta -9.41 ng/L (0-12) L 01/18/25 20:01 NT-Pro-B Natriuret Pep 3483 pg/mL (0-125) H 01/18/25 09:50 Total Protein 6.6 g/dL (6.6-8.7) 01/23/25 05:03 Albumin 2.5 g/dL (3.5-5.2) L 01/23/25 05:03 Globulin 4.1 g/dL (1.3-4.6) 01/23/25 05:03 Triglycerides 94 mg/dL (0-150) 01/18/25 13:39 Cholesterol 111 mg/dL (0-200) 01/18/25 13:39 LDL Cholesterol, Calc 50 mg/dL (50-129) 01/18/25 13:39 HDL Cholesterol 42 mg/dL (60-100) L 01/18/25 13:39 LDL/HDL Ratio 1.19 RATIO (0.00-3.22) 01/18/25 13:39 Cholesterol/HDL Ratio 2.64 mg/dL (0.0-4.40) 01/18/25 13:39 25-OH Vitamin D Total 15 ng/mL (30-100) L 01/19/25 10:55 Procalcitonin 0.31 ng/mL (0-0.5) 01/18/25 09:50 TSH 1.48 uIU/mL (0.27-4.20) 01/18/25 13:39 PTH Intact 75.8 pg/mL (15-65) H 01/19/25 10:55 Calcium (PTH Intact) 8.5 mg/dL (8.5-10.5) 01/19/25 10:55 Urine Color [place] (Yellow) A 01/18/25 10:53 Urine Appearance Clear (CLEAR) 01/18/25 10:53 Urine pH 6.0 (5-7) 01/18/25 10:53 Ur Specific [place] 1.027 (1.005-1.030) 01/18/25 10:53 Urine Protein 1+ (Negative) A 01/18/25 10:53 Urine Glucose (UA) 2+ (Normal) H 01/18/25 10:53 Urine Ketones 1+ (Negative) H 01/18/25 10:53 Urine Blood Negative (Negative) 01/18/25 10:53 Urine Nitrate Negative (Negative) 01/18/25 10:53 Urine Bilirubin 1+ (Negative) H 01/18/25 10:53 Urine Urobilinogen 1.0 mg/dL (Negative) 01/18/25 10:53 Ur Leukocyte Esterase Negative (Negative) 01/18/25 10:53 Urine RBC 0-2 /hpf (0-2) 01/18/25 10:53 Urine WBC 0-5 /hpf (0-5) 01/18/25 10:53 Ur Squamous Epith Cells 0-5 /hpf (0-5) 01/18/25 10:53 Amorphous Sediment Not Reportable 01/18/25 10:53 Urine Bacteria None seen /hpf (NONE) 01/18/25 10:53 Hyaline Casts 6.61 /lpf 01/18/25 10:53 Serum Ketones Negative (Negative) 01/18/25 09:50 Vitals Last Vital Signs Temp 99.4 F 01/23/25 13:44 Pulse 75 01/23/25 13:44 Resp 16 01/23/25 13:44 BP 139/80 01/23/25 13:44 Pulse Ox 96 01/23/25 13:44 O2 Del Method Room Air 01/23/25 11:17 Discharge Plan Discharge Patient Disposition: Home Health Service Condition: Stable Prescriptions: New aspirin 81 mg Tablet,Delayed Release (Dr/Ec) 81 mg PO DAILY 30 Days Qty: 30 0RF cefdinir 300 mg capsule 300 mg PO BID 5 Days Qty: 10 0RF Continued trazodone 50 mg tablet 50 mg PO QPM venlafaxine 150 mg capsule,extended release 24hr 150 mg PO DAILY levothyroxine 150 mcg tablet 150 mcg PO DAILY divalproex 250 mg tablet extended release 24 hr 250 mg PO DAILY Eliquis 5 mg Tablet 5 mg PO BID@0900,2100 Qty: 120 3RF atorvastatin 40 mg Tablet 20 mg PO BEDTIME Qty: 90 0RF metoprolol tartrate 25 mg Tablet 25 mg PO BID@0900,2100 Qty: 90 3RF Changed insulin lispro [Humalog U-100 Insulin] 100 unit/mL solution See Rx Instructions .ROUTE .COMPLEX 30 Days Qty: 10 0RF Rx Instructions: Inject, subcu, 3 times daily, after meals, based on sliding scale Discontinued insulin glargine [Lantus Solostar U-100 Insulin] 100 unit/mL (3 mL) insulin pen 34 - 40 unit SUBCUT QPM No Action (DME) night splint See Rx Instructions .Route .MEDSUPPLY Qty: 1 0RF Rx Instructions: As directed (DME) cam boot See Rx Instructions .Route .MEDSUPPLY Qty: 1 0RF Rx Instructions: As directed Discharge Order = DC NOW: Discharge Order (Routine); Ordered 01/23/25 Ordered By: Juan Maldonado Referrals: [facility] [Outside] Delmy Swift MD [Physician, Neurology] - 02/06/25 12:00 pm Referral Note: Nicole Ray MD [Primary Care Provider, [facility]] - 01/24/25 1:00 pm Referral Note: Patient family request. This visit will be a telehealth visit as well. Discharge Diet: Cardiac Discharge Activity: Resume usual activity Patient Instructions: Aspirin (By mouth), Cefdinir (By mouth), Altered Mental Status (GEN), Opioid Safety, Patient Portal & [place] Instructions Activity Restrictions/Additional Instructions: -Please monitor your blood sugars closely -Monitor your blood sugars 3 times daily as after meals -Please record your blood sugars, and a blood sugar log -For your NovoLog -Please inject blood sugar after meals based on sliding scale provided -Do not inject insulin if you do not eat as hypoglycemia kills -This is a NovoLog sliding scale -Insulin sliding ?fingerstick? Insulin ?141-180?0 units/sq 181-220?2 units/sq ?221-260?4 units/sq ?261-300 6 units/sq ?301-350?8 units/sq ?351-400 10 units/sq ?401-450?12 units/sq >450? 14units/sq -If your blood sugar is greater than 500 go to the emergency room -If your blood sugar is less than 60 or at anytime you feel lightheaded or dizzy or diaphoretic or have chest palpitations check your blood sugar, and eat a hard candy or drink orange juice and go immediately to the emergency room -Remember hypoglycemia kills, so if his blood sugar is less than 60 we have to increase it by taking in a sugary meal such as a hard candy or orange juice and go to the emergency room -If you have any questions please call us where here to help Discharge Attestations Time Spent in Discharge Care*: greater than 30 min Quality Metrics Clinical Quality Measures [ Cerebrovascular Accident { Contraindication to Antithrombotic: None; antithrombotic prescribed; Contraindication to Anticoagulation: None; anticoagulation prescribed; Contraindication to Statin: None; Statin prescribed;}] Coding Level of Care Code 94899 Total time (in minutes) for Discharge: 45 Diagnoses Altered mental status R41.82 Hyponatremia E87.1
== END 2025-01-23 13:30 | disposition home health service (06) | DRG 64 ==
LOC: ER 09:49 → ER IP 12:24 → MEDSURG 21:33
PROVIDERS: Admitting Provider Family Medicine; Emergency Provider Family Medicine; PCP Family Medicine; Visit Provider Family Medicine
DX: I63.9 Cerebral infarction, unspecified (principal); J18.9 Pneumonia, unspecified organism; E87.1 Hypo-osmolality and hyponatremia; G81.94 Hemiplegia, unspecified affecting left nondominant side; I69.351 Hemiplegia and hemiparesis following cerebral infarction affecting right dominant side; R47.01 Aphasia; E11.22 Type 2 diabetes mellitus with diabetic chronic kidney disease; N18.30 Chronic kidney disease, stage 3 unspecified; E03.9 Hypothyroidism, unspecified; I48.91 Unspecified atrial fibrillation; M21.371 Foot drop, right foot; Z79.82 Long term (current) use of aspirin; Z79.01 Long term (current) use of anticoagulants; Z79.4 Long term (current) use of insulin; Z87.440 Personal history of urinary (tract) infections; Z87.891 Personal history of nicotine dependence
CPT/HCPCS: 36415; 36416; 70450; 70551; 71250; 73502; 73560; 73600; 74176; 80053; 80061; 81001; 82009; 82306; 82310; 82330; 82962; 83036; 83605; 83735; 83880; 83970; 84100; 84145; 84443; 84484; 85025; 85651; 87040; 92523; 92526; 92610; 93005; 93880; 94664; 96372; 97161; 97166; 97530; 97535; 99285; J0456; J0696; J1815; J2270; J2470; J3475; J7030; J7050; J7799; J9999; Q0144